=== PATIENT | female | born 1930 | race Caucasian/White ===

== ENCOUNTER 2017-05-19 11:13 | Observation (INO) ==
--- NOTE | 2017-05-19 11:18 | Emergency Department Note ---
Disposition Clinical Impression: Chest pain Disposition: Admitted As Inpatient Condition: Good General Adult HPI - General Chief complaint: ED Chest Pain Stated complaint: CHEST PAIN/BACK PAIN Time Seen by Provider: 05/19/17 11:17 - Related Data Home Medications Medication Instructions Recorded Confirmed Levothyroxine [Synthroid] 100 mcg PO DAILY 12/18/15 05/19/17 LORazepam [Ativan] 0.5 mg PO TID PRN 08/07/16 05/19/17 Aspirin [Lo-Dose Aspirin EC] 1 tab PO DAILY 08/11/16 05/19/17 amLODIPine [Norvasc] 2.5 mg PO DAILY 04/22/17 05/19/17 Acetaminophen [Tylenol] 500 mg PO TID PRN 05/19/17 05/19/17 Cholecalciferol (D-3) [Vitamin D] 5,000 unit PO DAILY 05/19/17 05/19/17 Metoprolol XL (24 HR) Succ [Toprol 25 mg PO DAILY 05/19/17 05/19/17 XL] Oxycodone HCl [Oxaydo] 2.5 - 5 mg PO Q6H PRN 05/19/17 05/19/17 Allergies Allergy/AdvReac Type Severity Reaction Status Date / Time tuberculin,PPD,multi-puncture Allergy Hypertensio Verified 04/22/17 13:20 n meperidine [From Demerol] AdvReac Vomiting Verified 04/22/17 13:20 IVP DYE Allergy Hives Uncoded 05/19/17 11:22 Past Medical History - Past Medical History Medical history: Reports: atrial fibrillation, CHF, coronary artery disease, CVA , GI bleed, hypertension, myocardial infarction Psychiatric history: Reports: anxiety - Social History Smoking Status: Former smoker Smokeless Tobacco Status: No Alcohol use: Reports: none Drug use: Reports: none Course Vital Signs Temperature 98.1 F 05/19/17 11:16 Pulse Rate 65 05/19/17 11:16 Respiratory Rate 16 05/19/17 11:16 Blood Pressure 155/104 05/19/17 11:16 O2 Sat by Pulse Oximetry 97 05/19/17 11:16 Temperature 98.4 F 05/19/17 14:26 Pulse Rate 59 05/19/17 14:26 Respiratory Rate 18 05/19/17 14:26 Blood Pressure 182/74 05/19/17 14:26 O2 Sat by Pulse Oximetry 94 05/19/17 14:26 Oxygen Delivery Oxygen Delivery Room Air Medical Decision Making - Lab Data Result diagrams: 05/19/17 11:28 05/19/17 11:28 Lab Results 05/19/17 05/19/17 05/19/17 Range/Units 11:28 11:28 11:28 WBC 5.1 (4.3-11.1) K/mcL RBC 4.41 (3.82-4.97) M/mcL Hgb 10.7 L (11.5-15.4) g/dL Hct 36.3 (35.3-44.9) % MCV 82.3 L (83.0-100.0) fL MCH 24.3 L (28.0-33.3) pg MCHC 29.5 L (31.6-35.5) g/dL RDW 18.1 H (11.5-14.5) % Plt Count 128 L (140-400) K/mcL MPV 10.0 (9.4-12.4) fL Immature Gran % 0.2 (0-4) % Seg Neutrophils % 69.8 % Lymphocytes % 19.8 % Monocytes % 8.4 % Eosinophils % 1.4 % Basophils % 0.4 % Neutrophils # 3.6 (1.6-8.9) K/mcL Lymphocytes # 1.0 (0.6-4.6) K/mcL Monocytes # 0.4 (0.0-1.3) K/mcL Eosinophils # 0.1 (0.0-0.6) K/mcL Basophils # 0.0 (0.0-0.2) K/mcL Platelet Estimate Normal (Normal) Hypochromasia Present A (Not Present) Anisocytosis 1+ A (Not Present) D-Dimer (0-500) ng/mLFEU Sodium 138 (136-145) mEq/L Potassium 4.9 H (3.5-4.5) mEq/L Chloride 104 (98-109) mEq/L Carbon Dioxide 29 (19-29) mEq/L BUN 23 H (7-20) mg/dL Creatinine 1.31 H (0.57-1.11) mg/dL Est GFR ( Amer) 47 L (> 60) Est GFR (Non-Af Amer) 39 L (> 60) BUN/Creatinine Ratio 18 (6-26) Glucose 94 (70-99) mg/dL Calculated Osmolality 289 (280-300) Calcium 9.6 (8.6-10.8) mg/dL Troponin I 0.02 (0-0.03) ng/mL 05/19/17 Range/Units 11:30 WBC (4.3-11.1) K/mcL RBC (3.82-4.97) M/mcL Hgb (11.5-15.4) g/dL Hct (35.3-44.9) % MCV (83.0-100.0) fL MCH (28.0-33.3) pg MCHC (31.6-35.5) g/dL RDW (11.5-14.5) % Plt Count (140-400) K/mcL MPV (9.4-12.4) fL Immature Gran % (0-4) % Seg Neutrophils % % Lymphocytes % % Monocytes % % Eosinophils % % Basophils % % Neutrophils # (1.6-8.9) K/mcL Lymphocytes # (0.6-4.6) K/mcL Monocytes # (0.0-1.3) K/mcL Eosinophils # (0.0-0.6) K/mcL Basophils # (0.0-0.2) K/mcL Platelet Estimate (Normal) Hypochromasia (Not Present) Anisocytosis (Not Present) D-Dimer 1919 H (0-500) ng/mLFEU Sodium (136-145) mEq/L Potassium (3.5-4.5) mEq/L Chloride (98-109) mEq/L Carbon Dioxide (19-29) mEq/L BUN (7-20) mg/dL Creatinine (0.57-1.11) mg/dL Est GFR ( Amer) (> 60) Est GFR (Non-Af Amer) (> 60) BUN/Creatinine Ratio (6-26) Glucose (70-99) mg/dL Calculated Osmolality (280-300) Calcium (8.6-10.8) mg/dL Troponin I (0-0.03) ng/mL Attestation Statement - Attestation Attestation: I examined this patient and my medical decision-making was reviewed with the Resident Physician. I agree with the documented findings, disposition and treatment plan as described except to the extent set forth below. [id number] time providing Patient sent from the cancer center. She has a known history of colon cancer with hepatic metastases. She was sent for bradycardia evaluation chest pain. She appears in no acute distress on exam
--- NOTE | 2017-05-19 11:21 | Emergency Department Note ---
Disposition Clinical Impression: Chest pain Qualifiers: Chest pain type: unspecified Qualified Code(s): R07.9 - Chest pain, unspecified Disposition: Admitted As Inpatient Condition: Undetermined Referrals: Phyllis Parsons CNP [Primary Care Provider] - Forms: ED Satisfaction Letter Time of Disposition: 12:55 Chest Pain HPI - General Chief Complaint: ED Chest Pain Stated Complaint: CHEST PAIN/BACK PAIN Time Seen by Provider: 05/19/17 11:17 Source: patient Mode of arrival: EMS Limitations: no limitations Vital Signs Reviewed: Yes Nursing Notes Reviewed: Yes - History of Present Illness HPI Narrative: A 6-year-old female with history of colon cancer with liver metastasis currently about to start treatments of chemotherapy at [facility], right [facility] emergency Department as a transfer from the cancer center. [facility] with complaint of retrosternal chest pain with radiation down or back. She has associated dyspnea. The patient states this feels different from her previous chest pain. The patient denies any other complaints at this time. She is resting comfortably with a [id number] amount of chest pain in the room. The patient has had a CABG with unknown number of vessel repair. Patient denies any other complaints at this time. The patient's heart rate on the monitor initially demonstrates a heart rate of 33 on further evaluation there is a bigeminal pattern noted on the patient's EKG. The patient is mentating appropriately and answering all questions appropriately. The patient does have a history of atrial fibrillation but denies taking any anticoagulant at this time. The patient does state that she feels slightly weak in her shoulders which is new in addition the patient is complaining of a mild amount of neck discomfort. She says this is more soreness. The patient is able to move her neck without difficulty. She does not appear meningismus. Pt complaint: chest pain Onset (ago): Just [employer] INTEGR[employer] Duration: constant Onset: during rest Pain Location: substernal Severity: mild, moderate Quality: tightness Pain Radiation: back Improves with: nothing Worsens with: nothing Associated symptoms: Reports: dyspnea Treatments prior to arrival chest pain: none - Related Data On Oral Contraceptives: No Home Medications Medication Instructions Recorded Confirmed Levothyroxine [Synthroid] 100 mcg PO DAILY 12/18/15 05/19/17 LORazepam [Ativan] 0.5 mg PO TID PRN 08/07/16 05/19/17 Aspirin [Lo-Dose Aspirin EC] 1 tab PO DAILY 08/11/16 05/19/17 amLODIPine [Norvasc] 2.5 mg PO DAILY 04/22/17 05/19/17 Acetaminophen [Tylenol] 500 mg PO TID PRN 05/19/17 05/19/17 Cholecalciferol (D-3) [Vitamin D] 5,000 unit PO DAILY 05/19/17 05/19/17 Metoprolol XL (24 HR) Succ [Toprol 25 mg PO DAILY 05/19/17 05/19/17 XL] Oxycodone HCl [Oxaydo] 2.5 - 5 mg PO Q6H PRN 05/19/17 05/19/17 Allergies Allergy/AdvReac Type Severity Reaction Status Date / Time tuberculin,PPD,multi-puncture Allergy Hypertensio Verified 04/22/17 13:20 n meperidine [From Demerol] AdvReac Vomiting Verified 04/22/17 13:20 IVP DYE Allergy Hives Uncoded 05/19/17 11:22 All systems ED: reviewed and negative except as stated. Constitutional: Denies: fever, chills, weakness, weight change Eyes: Denies: eye pain, eye discharge, vision change Cardiovascular: Reports: chest pain. Denies: palpitations, dyspnea on exertion , edema, syncope Respiratory: Reports: dyspnea. Denies: cough, wheezes, hemoptysis, stridor Gastrointestinal: Denies: abdominal pain, nausea, vomiting, diarrhea, constipation, hematemesis, melena, hematochezia Genitourinary: Denies: dysuria, frequency, hematuria, discharge Musculoskeletal: Denies: back pain, neck pain, arthralgia, myalgia Integumentary: Denies: rash, abrasion, lesions Neurological: Denies: headache, weakness, numbness, paresthesias, confusion, abnormal gait, vertigo Chest Pain PMH - Past Medical History Medical history: Reports: atrial fibrillation, CHF, coronary artery disease, CVA , GI bleed, hypertension, myocardial infarction Psychiatric history: Reports: anxiety - Social History Smoking Status: Former smoker Alcohol use: Reports: none Drug use: Reports: none Physical Exam - General Limitations: no limitations General appearance: alert, in no apparent distress - Head Head exam: atraumatic, normocephalic, normal inspection - Eye Eye exam: Present: normal appearance, PERRL, EOMI - ENT ENT exam: normal exam, normal oropharynx, mucous membranes moist - Neck Neck exam: Present: normal inspection, full ROM, trachea midline - Chest Chest inspection: Present: normal inspection, symmetric chest wall rise - Respiratory Respiratory exam: Present: normal lung sounds bilaterally - Cardiovascular Cardiovascular exam: Present: regular rate, normal rhythm, normal heart sounds - Abdominal Exam Abdominal exam: Present: soft, Non-Tender. Absent: tenderness, distention, guarding, rebound, rigidity - Extremities Exam Extremities exam: Present: normal inspection, full ROM. Absent: tenderness, pedal edema - Back Exam Back exam: Present: normal inspection, full ROM. Absent: tenderness - Neurological Exam Neurological exam: Present: alert, oriented X3 - Skin Skin exam: Present: warm, dry, intact, normal color Course Vital Signs Temperature 98.1 F 05/19/17 11:16 Pulse Rate 65 05/19/17 11:16 Respiratory Rate 16 05/19/17 11:16 Blood Pressure 155/104 05/19/17 11:16 O2 Sat by Pulse Oximetry 97 05/19/17 11:16 Temperature 98.1 F 05/19/17 11:16 Pulse Rate 65 05/19/17 11:16 Respiratory Rate 16 05/19/17 11:16 Blood Pressure 155/104 05/19/17 11:16 O2 Sat by Pulse Oximetry 97 05/19/17 11:16 Oxygen Delivery Oxygen Delivery Room Air Chest Pain - MDM Narrative Medical decision making narrative: Patient's chest pain is slightly relieved with nitroglycerin. The patient's d- dimer was elevated but I do not feel as though this is a PE. We did receive a negative Doppler of the left lower extremity. The patient will be admitted to the hospital for further workup accepted by Dr. Salas in the hospitalist group. He was advised the patient does have an elevated d-dimer but given the patient's history of IVP dye allergy and CK D, a CTA is not obtainable here in the ED and we feel as though the VQ scan would be able to be obtained if deemed necessary by the hospitalist group once admitted as it will not change the patient's disposition at this time. Dr. Busby excepts the patient. - Medical Records Medical records reviewed: Yes I reviewed the patient's medical records. - Lab Data Lab results reviewed: Yes I reviewed the patient's lab results. Result diagrams: 05/19/17 11:28 05/19/17 11:28 Lab Results 05/19/17 05/19/17 05/19/17 Range/Units 11:28 11:28 11:28 WBC 5.1 (4.3-11.1) K/mcL RBC 4.41 (3.82-4.97) M/mcL Hgb 10.7 L (11.5-15.4) g/dL Hct 36.3 (35.3-44.9) % MCV 82.3 L (83.0-100.0) fL MCH 24.3 L (28.0-33.3) pg MCHC 29.5 L (31.6-35.5) g/dL RDW 18.1 H (11.5-14.5) % Plt Count 128 L (140-400) K/mcL MPV 10.0 (9.4-12.4) fL Immature Gran % 0.2 (0-4) % Seg Neutrophils % 69.8 % Lymphocytes % 19.8 % Monocytes % 8.4 % Eosinophils % 1.4 % Basophils % 0.4 % Neutrophils # 3.6 (1.6-8.9) K/mcL Lymphocytes # 1.0 (0.6-4.6) K/mcL Monocytes # 0.4 (0.0-1.3) K/mcL Eosinophils # 0.1 (0.0-0.6) K/mcL Basophils # 0.0 (0.0-0.2) K/mcL Platelet Estimate Normal (Normal) Hypochromasia Present A (Not Present) Anisocytosis 1+ A (Not Present) D-Dimer (0-500) ng/mLFEU Sodium 138 (136-145) mEq/L Potassium 4.9 H (3.5-4.5) mEq/L Chloride 104 (98-109) mEq/L Carbon Dioxide 29 (19-29) mEq/L BUN 23 H (7-20) mg/dL Creatinine 1.31 H (0.57-1.11) mg/dL Est GFR ( Amer) 47 L (> 60) Est GFR (Non-Af Amer) 39 L (> 60) BUN/Creatinine Ratio 18 (6-26) Glucose 94 (70-99) mg/dL Calculated Osmolality 289 (280-300) Calcium 9.6 (8.6-10.8) mg/dL Troponin I 0.02 (0-0.03) ng/mL 05/19/ Range/Units 11:30 WBC (4.3-11.1) K/mcL RBC (3.82-4.97) M/mcL Hgb (11.5-15.4) g/dL Hct (35.3-44.9) % MCV (83.0-100.0) fL MCH (28.0-33.3) pg MCHC (31.6-35.5) g/dL RDW (11.5-14.5) % Plt Count (140-400) K/mcL MPV (9.4-12.4) fL Immature Gran % (0-4) % Seg Neutrophils % % Lymphocytes % % Monocytes % % Eosinophils % % Basophils % % Neutrophils # (1.6-8.9) K/mcL Lymphocytes # (0.6-4.6) K/mcL Monocytes # (0.0-1.3) K/mcL Eosinophils # (0.0-0.6) K/mcL Basophils # (0.0-0.2) K/mcL Platelet Estimate (Normal) Hypochromasia (Not Present) Anisocytosis (Not Present) D-Dimer 1919 H (0-500) ng/mLFEU Sodium (136-145) mEq/L Potassium (3.5-4.5) mEq/L Chloride (98-109) mEq/L Carbon Dioxide (19-29) mEq/L BUN (7-20) mg/dL Creatinine (0.57-1.11) mg/dL Est GFR ( Amer) (> 60) Est GFR (Non-Af Amer) (> 60) BUN/Creatinine Ratio (6-26) Glucose (70-99) mg/dL Calculated Osmolality (280-300) Calcium (8.6-10.8) mg/dL Troponin I (0-0.03) ng/mL - Radiology Data Radiology results reviewed: Yes I reviewed the patient's radiology results. - EKG Data EKG attestation: Yes I reviewed and interpreted this EKG. EKG results narrative: Heart rate 70 bpm. LA interval 194 ms. QTc 440 ms. Normal axis. No ST elevation or ST depression noted. Bigeminal-like pattern associated with multiple foci. EKG from 05/21/2016 without bigeminal pattern. EKG #2: Heart rate 57 bpm. LA interval 198 ms. QTc 450 ms. Normal axis. No ST elevation or ST depression noted. New bigeminal pattern continued and is similar to EKG performed at 1118. No acute changes noted from previous EKG this morning.
[2017-05-19 11:39] LABS: Basophils % 0.4 %; Immature Granulocytes % 0.2 % (0-4)
[2017-05-19 11:40] LABS: Eosinophils # 0.1 K/mcL (0.0-0.6); Eosinophils % 1.4 %; Hematocrit 36.3 % (35.3-44.9); Hemoglobin 10.7 g/dL (11.5-15.4); Lymphocytes % 19.8 %; Mean Corpuscular HGB Conc 29.5 g/dL (31.6-35.5); Mean Corpuscular Hemoglobin 24.3 pg (28.0-33.3); Mean Corpuscular Volume 82.3 fL (83.0-100.0); Monocytes # 0.4 K/mcL (0.0-1.3); Monocytes % 8.4 %; Neutrophils # 3.6 K/mcL (1.6-8.9); Platelet Count 128 K/mcL (140-400); Red Blood Count 4.41 M/mcL (3.82-4.97); Red Cell Distribution Width 18.1 % (11.5-14.5); Segmented Neutrophils % 69.8 %
[2017-05-19 11:51] LABS: Calcium 9.6 mg/dL (8.6-10.8); Potassium 4.9 mEq/L (3.5-4.5)
[2017-05-19 12:01] LABS: Anisocytosis 1+ (Not Present); Hypochromasia Present (Not Present)
[2017-05-19 12:02] LABS: Platelet Estimate Normal (Normal)
[2017-05-19] MEDS: Nitroglycerin 0.4 MG TAB.SUBL SL PRN ×2 (12:06→12:08)
[2017-05-19] MEDS: 0.9 % Sodium Chloride 1,000 ML IVC SCH ×2 (12:07→20:36)
--- NOTE | 2017-05-19 12:59 | Venous Imaging Report ---
LE Venous Duplex Patient Name:Kamila Da Silva Order Number:[id number] Procedure Date:05/19/2017 Date:1930Age:86 yrs Gender:Female Location:[facility] [place] ED Room #: 1 Retail Sales Merchandiser Development:Jenn Franco RVT, RDCS Referring MD:Jose Jacob DO shot packer:Phyllis Parsons, STENCILER Reading MD:Manjit Ross MD , FACS Primary Indications:Left leg swelling Secondary Indications: Risk Factors Yes/No Hx of Chemotherapy Yes Anticoagulants Yes Impressions: Left lower extremity: normal superficial and deep exam. Right lower extremity: normal contralateral exam. Recommendations: After imaging the patient returned to er. Test completed on 05/19/2017 at 12:45:00 pm. Critical findings reported to Dr Jacob by phone at 12:50:00 pm on 05/19/2017 by Jenn Franco RVT, RDCS. Findings Venous Duplex Results: Right: Venous imaging of the lower extremity reveals full patency and normal vessel compressibility of the right common femoral. Doppler signals in the evaluated veins were normal. Left: Venous imaging of the lower extremity reveals full patency and normal vessel compressibility of the left distal iliac, left common femoral, left superficial femoral, left popliteal, left posterior tibial, left peroneal, left great saphenous and left lesser saphenous. Doppler signals in the evaluated veins were normal. Prior Study: No prior study available for comparison. Lower Extremity Venous Duplex Side Vein Compress Spontaneous Flow Augment Diameter (cm) Depth (cm) Left Distal Iliac Normal Yes Phasic Yes Left Common Femoral Normal Yes Phasic Yes Left Superficial Femoral Normal Yes Phasic Yes Left Popliteal Normal Yes Phasic Yes Left Posterior Tibial Normal Yes Phasic Yes Left Peroneal Normal Yes Phasic Yes Left Great Saphenous Normal Yes Phasic Yes Left Lesser Saphenous Normal Yes Phasic Yes Right Common Femoral Normal Yes Phasic Yes Updated by Manjit Ross MD, FACS on 05/19/2017 12:54:39 PM Manjit Ross MD electronically signed on 05/19/2017 12:55:01 PM with status of Final
[2017-05-19] MEDS ORDERED: Naloxone 0.4 MG/ML INJ IVP PRN (13:52)
--- NOTE | 2017-05-19 13:56 | Internal Med History&Physical ---
Date of Encounter: 05/19/17 Time of Encounter: 17:32 Assessment and Plan (1) Chest pain Current visit: Yes Status: Acute Chest pain: ERAN: 4 PESI : 126 Creat 1.36 with GFR 39 US lower extremity is negative for DVT. History of colon cancer with ongoing treatment. patient should be on IV heparin but in view of ongoing treatment for Carcinoma colon with mets to liver, the risk of bleeding is extremely high. plan V/Q tomorrow Symptomatic treatment for now. case discussed with patient's oncologist and plan discussed. Dr Dawson agreed with plan. I have discussed plan of care at length with patient and her daughter. They understood and agreed. 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 (4) Liver metastasis Current visit: No Status: Acute Ongoing treatment for same. (5) Hypothyroidism Current visit: No Status: Acute on replacement Levothyroxine. Qualifiers: Hypothyroidism type: acquired Qualified Code(s): E03.9 - Hypothyroidism, unspecified (6) CKD (chronic kidney disease), stage III Current visit: No Status: Chronic likely component of dehydration. (7) DVT prophylaxis Current visit: No Status: Acute SCD No pharmacological prophylaxis in view of bleeding risk Medical decision making : Patient is a moderate to severe risk of worsening clinically in spite of being on appropriate treatment due to underlying neoplastic condition. Internal Medicine - H&P: HPI Chief complaint: Chest pain Admitted From: Emergency Dept Plans for Post Hospital Care: Home History of present illness: PCP: LISSY Beasley from [facility] Oncology : Dr Dawson Cardiology : Dr Chavez. [facility] PMH : Ca Colon, HTN, Afib, CAD, CVA, HPI: The patient was in the oncologist office for a routine checkup. Where it was noted that patient had a persistent nonradiating, localized, substernal/ epigastric, excruciating chest pain. The pain was ongoing for more than 20 minutes and he did not respond to any nitroglycerin. Patient was complaining of back pain along with chest pain and that was a common symptom for oncologist. Patient denies shortness of breath, nausea, vomiting, abdominal pain or dizziness. Workup in ER: Patient was evaluated in the emergency room. Baseline labs were drawn. Noted that patient has a elevated creatinine. Patient is not a candidate for CTA and even though her d-dimer is elevated due to underlying kidney disease. Ultrasound of the lower extremity were negative. Reason for admission: Possible pulmonary embolism/chest pain to rule out ACS. Family history: Noncontributory Past Med Surg Social Fam HX - Past Medical History Medical history: atrial fibrillation, CHF, coronary artery disease, CVA, GI bleed, hypertension, myocardial infarction Psychiatric history: anxiety - Social History Smoking Status: Former smoker Smokeless Tobacco Status: No Alcohol use: none Drug use: none - Family History Mother Living Status: Hx Family Cardiac Disorders: No Hx Family Respiratory Disorders: No Hx Family Cancer: Yes (colon) Hx Family GI Disorders: No Hx Family Endocrine Disorder: No Hx Family Neuromuscular Disorders: No Hx Family Neurologic Disorders: No Hx Family HEENT Disorders: No Hx Family Autoimmune Disorders: No Internal Medicine - H&P: Meds Levothyroxine [Synthroid] 100 mcg PO DAILY 12/18/15 [History] LORazepam [Ativan] 0.5 mg PO TID PRN 08/07/16 [History] Aspirin [Lo-Dose Aspirin EC] 1 tab PO DAILY 08/11/16 [History] amLODIPine [Norvasc] 2.5 mg PO DAILY 04/22/17 [History] Acetaminophen [Tylenol] 500 mg PO TID PRN 05/19/17 [History] Cholecalciferol (D-3) [Vitamin D] 5,000 unit PO DAILY 05/19/17 [History] Metoprolol XL (24 HR) Succ [Toprol XL] 25 mg PO DAILY 05/19/17 [History] Oxycodone HCl [Oxaydo] 2.5 - 5 mg PO Q6H PRN 05/19/17 [History] Allergies tuberculin,PPD,multi-puncture Allergy (Verified 04/22/17 13:20) Hypertension meperidine [From Demerol] Adverse Reaction (Verified 04/22/17 13:20) Vomiting IVP DYE Allergy (Uncoded 05/19/17 11:22) Hives All Systems PM: A 10-system review of systems was performed and is negative for pertinent findings except as documented above in the HPI. - Constitutional Constitutional: no chills, no fever(s), no night sweats - EENT Eyes: no change in vision, no discharge, no pain, no photophobia Ears: no ear discharge, no ear pain, no tinnitus Nose, mouth and throat: no dysphagia, no nasal discharge, no neck pain, no sore throat - Cardiovascular Cardiovascular ROS IM: no chest pain, no diaphoresis, no dyspnea, no lightheadedness, no palpitations, no syncope - Respiratory Respiratory: no cough, no dyspnea, no wheezing, no excessive phlegm production - Gastrointestinal Gastrointestinal: no abdominal pain, no diarrhea, no hematemesis, no hematochezia, no melena, no nausea, no vomiting - Genitourinary Genitourinary: no change in urinary stream, no dysuria, no flank pain, no hematuria - Musculoskeletal Musculoskeletal ROS IM: no numbness, no tingling - Integumentary Integumentary IM: no rash, no unusual bruising - Neurological Neurological ROS: no confusion, no convulsions, no focal weakness, no numbness, no tingling, no tremor(s) - Hematologic/Lymphatic Hematologic/Lymphatic: no easy bruising - Constitutional Vitals: Temp Pulse Resp BP Pulse Ox 98.1 F 65 22 188/89 97 05/19/17 11:16 05/19/17 11:16 05/19/17 13:28 05/19/17 13:28 05/19/17 11:16 General appearance: Present: A&O X 3, pleasant, no acute distress, answers questions appropriately - Head Head exam: Present: atraumatic, normocephalic - Eye Eye exam: Present: PERRL, conjuntiva pink, sclera anicteric Pupils: Present: PERRL - Neck Neck exam general surgery: Present: supple, trachea midline. Absent: lymphadenopathy - Respiratory Respiratory exam: Present: CTAB. Absent: accessory muscle use, rales, rhonchi, wheezes - Cardiovascular Cardiovascular exam: Present: RRR, +S1, +S2. Absent: diastolic murmur, gallop, rubs, systolic murmur - GI/Abdominal GI/Abdominal exam: Present: normal bowel sounds, soft, no peritoneal signs. Absent: distended, tenderness - Extremities Exam Extremities exam: Present: warm, radial pulses palpable and symetrical. Absent : calf tenderness, cyanotic, pedal edema - Neurological Exam Neurological exam: Present: CN II-XII intact, oriented X3, no focal deficits. Absent: pronater drift, facial droop, speech deficit - Skin Skin exam: Present: dry, intact Internal Med - H&P Results - Labs CBC & Chem 7: 05/19/17 11:28 05/19/17 11:28 Labs: Results discussed with the ER physician and person. I have examined this patient in the emergency room as well as on the floor.
[2017-05-19] MEDS ORDERED: OXYCODONE HCL PO SCH (14:00)
[2017-05-19] MEDS ORDERED: *HR* OxyCODONE Immed Rel 5 MG TABLET PO PRN ×2 (14:00)
[2017-05-19] MEDS: *HR* LORazepam 0.5 MG TABLET PO PRN ×2 (18:20→23:43)
[2017-05-20 02:03] LABS: Immature Reticulocyte % 20.4 % (11.0-38.0); Retculocyte # 0.07 M/mcL (0.05-0.10); Reticulocyte % 1.7 % (1.6-2.8)
[2017-05-20 02:04] LABS: Basophils % 0.6 %; Eosinophils # 0.1 K/mcL (0.0-0.6); Eosinophils % 2.7 %; Hematocrit 30.7 % (35.3-44.9); Immature Granulocytes % 0.6 % (0-4); Lymphocytes # 0.9 K/mcL (0.6-4.6); Lymphocytes % 26.6 %; Mean Corpuscular HGB Conc 29.6 g/dL (31.6-35.5); Mean Corpuscular Hemoglobin 24.4 pg (28.0-33.3); Mean Corpuscular Volume 82.3 fL (83.0-100.0); Mean Platelet Volume 10.3 fL (9.4-12.4); Monocytes # 0.4 K/mcL (0.0-1.3); Monocytes % 11.1 %; Platelet Count 110 K/mcL (140-400); Red Blood Count 3.73 M/mcL (3.82-4.97); Red Cell Distribution Width 18.1 % (11.5-14.5); Segmented Neutrophils % 58.4 %
[2017-05-20 02:25] LABS: Albumin 2.8 g/dL (3.5-5.0); Albumin/Globulin Ratio 0.9 (1.1-2.2); Bilirubin,Total 0.3 mg/dL (0.2-1.2); Calcium 8.8 mg/dL (8.6-10.8); Globulin 3.2 g/dL (2.4-3.5); Magnesium 1.7 mg/dL (1.6-2.6); Phosphorous 3.5 mg/dL (2.3-4.7); Potassium 4.5 mEq/L (3.5-4.5)
[2017-05-20 02:32] LABS: Hemoglobin 9.1 g/dL (11.5-15.4)
[2017-05-20 02:48] LABS: Thyroid Stimulating Hormone 0.883 mcIU/mL (0.350-4.840)
[2017-05-20 03:00] LABS: Folate 11.4 ng/mL (7.0-31.4)
[2017-05-20] MEDS: 0.9 % Sodium Chloride 1,000 ML IVC SCH (04:13)
[2017-05-20] MEDS: *HR* LORazepam 0.5 MG TABLET PO PRN (08:50)
[2017-05-20] MEDS ORDERED: Metoprolol XL (24 HR) Succ 25 MG TAB.ER.24H PO SCH (09:00)
[2017-05-20] MEDS ORDERED: Aspirin Enteric Coated 81 MG Tablet PO SCH (09:00)
[2017-05-20] MEDS ORDERED: amLODIPine 5 MG TABLET PO SCH (09:00)
[2017-05-20] MEDS ORDERED: Cholecalciferol (D-3) 1,000 UNIT TABLET PO SCH (09:00)
--- NOTE | 2017-05-20 10:55 | Internal Med Progress Note ---
Date of Encounter: 05/20/17 Time of Encounter: 10:15 - Subjective Interval history: Laying in bed comfortably. Her only complaint is chronic right upper quadrant pain is most likely due to her liver metastases. She stated that she had a little nausea this morning that has resolved She denies dyspnea, chest pain, wheezing, fever, chills. - Constitutional Vitals: Temp Pulse Resp BP Pulse Ox 97.5 F L 78 16 170/89 92 05/20/17 07:05/20/17 07:05/20/17 07:05/20/17 07:05/20/17 07:27 General appearance: Present: A&O X 3, pleasant, no acute distress, answers questions appropriately Internal Medicine: Result - Labs CBC & Chem 7: 05/20/17 01:32 05/20/17 01:32 Labs: Short CBC 05/20/17 Range/Units 01:32 WBC 3.3 L (4.3-11.1) K/mcL Hgb 9.1 L D (11.5-15.4) g/dL Hct 30.7 L (35.3-44.9) % Plt Count 110 L (140-400) K/mcL Neutrophils # 2.0 (1.6-8.9) K/mcL BMP 05/20/17 01:32 Sodium 140 Potassium 4.5 Chloride 109 Carbon Dioxide 27 BUN 23 H Creatinine 1.27 H Glucose 96 Calcium 8.8 Cardiac Enzymes 05/19/17 05/19/17 05/20/17 Range/Units 14:32 20:30 01:32 Troponin I 0.00 0.01 0.01 (0-0.03) ng/mL Liver Function 05/20/17 Range/Units 01:32 Total Bilirubin 0.3 (0.2-1.2) mg/dL AST 14 (5-34) Units/L ALT 17 (0-55) Units/L Alkaline Phosphatase 121 (38-126) Units/L Albumin 2.8 L (3.5-5.0) g/dL - ABG Interpretation ABG results: PT/INR, D-dimer D-Dimer 1919 ng/mLFEU (0-500) H 05/19/17 11:30 - Impressions Impressions Pulmonary Perfusion Imaging 05/19/17 17:31 IMPRESSION: Low Probability for Pulmonary Embolus. D/ / Francisco Padilla MD / Francisco Padilla MD Interpreting Provider: Francisco Padilla MD - VTE Documentation of Mechanical Device: Intermittent pneumatic compression device Consult Discharge Plan - Plan Referrals: Phyllis Parsons CNP [Primary Care Provider] -
[2017-05-20 10:57] VITALS: BP 162/90
--- NOTE | 2017-05-20 13:49 | Electrocardiograph Report ---
[address] [place] [address] Test Date: 2017-05-19 Pat Name: Kamila Da Silva Department: 103 Room: 2A24 Gender: F Trade Specialist: : 1930 Requested By: Jose Jacob Order Number: [id number] Reading MD: Chandra Aguilera MD Measurements Intervals [place] Rate: 70 P: 80 SC: 194 QRS: 66 QRSD: 102 T: -76 QT: 427 QTc: 448 Interpretive Statements SINUS RHYTHM WITH FREQUENT VENTRICULAR PREMATURE COMPLEXES IN A BIGEMINAL PATTERN SEPTAL MYOCARDIAL INFARCTION, PROBABLY OLD INFEROLATERAL ISCHEMIA Electronically Signed On 05-20-2017 13:48:02 EDT by Chandra Aguilera MD
--- NOTE | 2017-05-20 13:53 | Electrocardiograph Report ---
[address] [place], [place] [address] Test Date: 2017-05-19 Pat Name: Kamila Da Silva Department: 103 Room: 2A24 Gender: F Sinter Feeder: : 1930 Requested By: Jacobo Pineda Order Number: [id number] Reading MD: Chandra Aguilera MD Measurements Intervals [place] Rate: 57 P: 81 MT: 198 QRS: 64 QRSD: 94 T: 265 QT: 455 QTc: 450 Interpretive Statements SINUS BRADYCARDIA WITH FREQUENT VENTRICULAR PREMATURE COMPLEXES IN A BIGEMINAL PATTERN INFEROLATERAL ISCHEMIA Electronically Signed On 05-20-2017 13:51:44 EDT by Chandra Aguilera MD
--- NOTE | 2017-05-20 13:54 | Discharge Summary ---
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 This was discussed with her daughter and she agreed. -Creat 1.27 with GFR 40 -US lower extremity: negative for DVT -patient has a history of colon cancer with ongoing treatment -her oncologist Dr. Dawson has been formed and is agreeable to the plan -patient will follow-up with her Carpet Technician Dr. 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, has completed radiation treatment Oncologist is Dr Dawson (4) Liver metastasis Priority: Secondary Status: Acute Comments: 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 Has an appointment with [facility] for treatment (5) Hypothyroidism Priority: Secondary Status: Acute Comments: Chronic hypothyroidism continue home medications of levothyroxine Qualifiers: Hypothyroidism type: acquired Qualified Code(s): E03.9 - Hypothyroidism, unspecified (6) CKD (chronic kidney disease), stage III Priority: Secondary Status: Chronic Comments: Cr 1.27 improving Likely in part to dehydration (7) DVT prophylaxis Priority: Secondary Status: Acute Comments: SCD no pharmacological prophylaxis due to high risk of bleeding - Discharge Medications Prescriptions: Levothyroxine [Synthroid] 100 mcg PO DAILY #30 Home Medications: LORazepam [Ativan] 0.5 mg PO TID PRN 08/07/16 [History] Aspirin [Lo-Dose Aspirin EC] 1 tab PO DAILY 08/11/16 [History] amLODIPine [Norvasc] 2.5 mg PO DAILY 04/22/17 [History] Acetaminophen [Tylenol] 500 mg PO TID PRN 05/19/17 [History] Cholecalciferol (D-3) [Vitamin D] 5,000 unit PO DAILY 05/19/17 [History] Metoprolol XL (24 HR) Succ [Toprol Xl] 25 mg PO DAILY 05/19/17 [History] Oxycodone HCl [Oxaydo] 2.5 - 5 mg PO Q6H PRN 05/19/17 [History] Levothyroxine [Synthroid] 100 mcg PO DAILY #30 05/20/17 [Rx] Allergies/Adverse Reactions: Allergies tuberculin,PPD,multi-puncture Allergy (Verified 04/22/17 13:20) Hypertension meperidine [From Demerol] Adverse Reaction (Verified 04/22/17 13:20) Vomiting IVP DYE Allergy (Uncoded 05/19/17 11:22) Hives Procedures/tests Complete & Pending: Procedures Performed prior 72 hours Category Date Time Status VQ Scan [NM pul vent and perfuse] [NM] Routine Exams 05/19/17 17:31 Completed ECG 12 lead ECG [ECG] Routine Y 05/19/17 11:49 Completed Date of admission: 05/19/17 13:00 Primary care physician: Phyllis Parsons CNP Consults: 05/19/17 15:29 Consult to Pastoral Services [CONS] Routine Comment: Discharging clinician: Aissatou Mitchell - Patient Status Disposition: Home, Self-Care Condition: Good Functional capacity at discharge: independent ambulation Overall status at discharge: patient is back to baseline - Discharge Instructions Instructions: Chest Pain (DC) Follow Up With: Phyllis Parsons CNP [Primary Care Provider] - 05/27/17 1:00 pm (Please follow up as schedule...) Additional Instructions: Follow-up with PCP: LISSY Beasley from [facility] follow-up with Oncology : Dr Dawson follow-up with Cardiology : Dr Chavez return to the ER if you experience any more chest pain or worsen. - Diet and Activity Diet: advance to your usual diet Interval History: Ms. Santos is a pleasant 86yo F who was in the oncologist office for a routine checkup for her colon carcinoma with liver metastases. The patient had a persistent nonradiating, localized, substernal/epigastric, excruciating chest pain. The pain was ongoing for more than 20 minutes and he did not respond to any nitroglycerin. Patient complained of back pain along with chest pain and that was a common symptom for oncologist. Patient denies shortness of breath, nausea, vomiting, abdominal pain or dizziness. While in the ER she was evaluated and labs were drawn. Patient was noted to have an elevated creatinine. She was not a candidate for CTA even though her teatime or was elevated due to her underlying chronic kidney disease. Ultrasound of the lower. extremity were negative. She was then admitted for possible pulmonary embolism and chest pain to roll out ACS. A V/Q scan was done and demonstrated a low probability of pulmonary embolism. Chest x-ray demonstrated no cardiopulmonary process. She was not started on heparin due to her history of colon carcinoma with liver metastases, the risk of bleeding is very high. This was discussed with her daughter and she agreed to not give heparin. The patient is currently stable, creatinine is improving. The patient expresses the want to go home. She denies chest pain, dyspnea, wheezing, fever, chills, nausea, vomiting, abdominal pain. Patient is alert and oriented x3 with full capacity. She was instructed to follow up with her oncologist: Dr. Dawson, Cardiology: Dr Chavez , PCP: LISSY Beasley from [facility]. She stated clearly understanding of the treatment plan. Patient requested a prescription of her Synthroid due to not having many more refills. She was giving the prescription at discharge. She was instructed to return to the hospital should she worsen. Hospital course: Ms. Da Silva is a 86 year old female - Time Spent with Patient Total time spent providing and/or coordinating discharge services: - Constitutional Vitals: Temp Pulse Resp BP Pulse Ox 97.5 F L 57 17 162/90 95 05/20/17 10:54 05/20/17 10:54 05/20/17 10:54 05/20/17 10:54 05/20/17 10:54 General appearance: Present: A&O X 3, pleasant, no acute distress, answers questions appropriately Exam: Gen.: Vitals noted. No acute distress. AAOx3 HEENT: PERRL, oropharynx clear, Normocephalic, atraumatic Neck: Supple. No adenopathy. Cardiac: RRR, no murmur, +S1/S2 Pulmonary: CTA bilaterally, no wheezes, rales or rhonchi, equal chest expansion Abdomen: soft, nontender, Bowel sounds noted, no guarding MSK: no joint swelling noted Extremities: nontender calf, no cyanosis or clubbing Neuro: A&Ox3, moves all extremities, no focal deficits Psych: Appropriate mood and behavior - VTE Documentation of Mechanical Device: Intermittent pneumatic compression device <Jose F Olson P - Last Filed: 05/20/17 18:38> Date of Encounter: 05/20/17 - Discharge Diagnosis (1) Chest pain Status: Acute Qualifiers: Chest pain type: unspecified Qualified Code(s): R07.9 - Chest pain, unspecified (2) Hypertension Status: Acute Qualifiers: Hypertension type: essential hypertension Qualified Code(s): I10 - Essential (primary) hypertension (3) Carcinoid tumor of colon Status: Acute (4) Liver metastasis Status: Acute (5) Hypothyroidism Status: Acute Qualifiers: Hypothyroidism type: acquired Qualified Code(s): E03.9 - Hypothyroidism, unspecified (6) CKD (chronic kidney disease), stage III Status: Chronic (7) DVT prophylaxis Status: Acute Procedures/tests Complete & Pending: Procedures Performed prior 72 hours Category Date Time Status VQ Scan [NM pul vent and perfuse] [NM] Routine Exams 05/19/17 17:31 Completed ECG 12 lead ECG [ECG] Routine Y 05/19/17 11:49 Completed Date of admission: 05/19/17 13:00 Primary care physician: Phyllis Parsons CNP Consults: 05/19/17 15:29 Consult to Pastoral Services [CONS] Routine Comment: Hospital course: Ms. Da Silva is a 86 year old female - Time Spent with Patient Total time spent providing and/or coordinating discharge services: - Constitutional Vitals: Temp Pulse Resp BP Pulse Ox 97.5 F L 57 17 162/90 95 05/20/17 10:54 05/20/17 10:54 05/20/17 10:54 05/20/17 10:54 05/20/17 10:54 - Attending Attestation I examined this patient and my medical decision-making was reviewed with the Resident Physician. I agree with the documented findings, disposition and treatment plan as described except to the extent set forth below.
--- NOTE | 2017-05-20 14:46 | Physician Discharge Referral ---
<StephenAissatou - Last Filed: 05/20/17 14:44> Home Health/Hosp Referral Info Transfer to: Home Health Attending Provider: Dr. Olson Provider in Charge Post Discharge: PCP - Diagnosis (1) Chest pain Status: Acute (2) Hypertension Status: Acute (3) Carcinoid tumor of colon Status: Acute (4) Liver metastasis Status: Acute (5) Hypothyroidism Status: Acute (6) CKD (chronic kidney disease), stage III Status: Chronic (7) DVT prophylaxis Status: Acute - Respiratory Orders None Smoking Cessation: Smoking cessation has been advised. For more information, call the [place] Tobacco Quit Line at 3-977-JTOC-NOW. - Diet/Nutrition Diet/Nutrition Orders: Regular - Activity Activity Orders: Ambulate - Services Needed Following services are medically necessary services: Nursing, Home Health Aide, Physical Therapy Home Care Orders: meals on wheels - Transfer Medications Prescriptions: Levothyroxine [Synthroid] 100 mcg PO DAILY #30 Home Medications: LORazepam [Ativan] 0.5 mg PO TID PRN 08/07/16 [History] Aspirin [Lo-Dose Aspirin EC] 1 tab PO DAILY 08/11/16 [History] amLODIPine [Norvasc] 2.5 mg PO DAILY 04/22/17 [History] Acetaminophen [Tylenol] 500 mg PO TID PRN 05/19/17 [History] Cholecalciferol (D-3) [Vitamin D] 5,000 unit PO DAILY 05/19/17 [History] Metoprolol XL (24 HR) Succ [Toprol Xl] 25 mg PO DAILY 05/19/17 [History] Oxycodone HCl [Oxaydo] 2.5 - 5 mg PO Q6H PRN 05/19/17 [History] Levothyroxine [Synthroid] 100 mcg PO DAILY #30 05/20/17 [Rx] Allergies/Adverse Reactions: Allergies tuberculin,PPD,multi-puncture Allergy (Verified 04/22/17 13:20) Hypertension meperidine [From Demerol] Adverse Reaction (Verified 04/22/17 13:20) Vomiting IVP DYE Allergy (Uncoded 05/19/17 11:22) Hives Certification: Further, I certify that my clinical findings support that this patient is homebound (i.e. absences from home require considerable and taxing effort and are for medical reasons or restorationism services or infrequently or short duration when for other reasons) because: she has carcinoma of the colon with metastases to the liver Homebound Reason: Leaving home requires considerable and taxing effort due to condition Attestation: My signature below is to certify that this patient is under my care and that I, or nurse practitioner, or a physician's assistant sales center manager working with me, has a face-to -face encounter with this patient. Dr. Aissatou Mitchell <Jose F Olson - Last Filed: 05/20/17 18:39> - Diagnosis (1) Chest pain Status: Acute (2) Hypertension Status: Acute (3) Carcinoid tumor of colon Status: Acute (4) Liver metastasis Status: Acute (5) Hypothyroidism Status: Acute (6) CKD (chronic kidney disease), stage III Status: Chronic (7) DVT prophylaxis Status: Acute - Respiratory Orders Smoking Cessation: Smoking cessation has been advised. For more information, call the [place] Tobacco Quit Line at 4-938-DJTA-NOW. Certification: Further, I certify that my clinical findings support that this patient is homebound (i.e. absences from home require considerable and taxing effort and are for medical reasons or restorationism services or infrequently or short duration when for other reasons) because: Attestation: My signature below is to certify that this patient is under my care and that I, or nurse practitioner, or a physician's assistant sales center manager working with me, has a face-to -face encounter with this patient.
[2017-05-21 15:05] LABS: Haptoglobin 131 mg/dL (30-200)
[2017-05-23 08:15] LABS: ANA IgG IFA Titer 1:40 (<1:40); ANA IgG by ELISA DETECTED (None Detected); MMA (VIT B12 STATUS) 0.35 umol/L (0.00-0.40)
== END 2017-05-20 15:20 | disposition home health service (06) ==
LOC: EMEROO 11:13 → 2ANU 11:13
PROVIDERS: ADMIT Internal Medicine; ATTEND Internal Medicine

== ENCOUNTER 2017-08-02 12:20 | Inpatient (IN) ==
--- NOTE | 2017-08-02 12:42 | Emergency Department Note ---
Disposition Clinical Impression: Anxiety, Atrial fibrillation with rapid ventricular response Atrial fibrillation Qualifiers: Atrial fibrillation type: persistent Qualified Code(s): I48.1 - Persistent atrial fibrillation Disposition: Admitted As Inpatient Condition: Fair Instructions: Atrial Fibrillation (ED) Forms: ED Satisfaction Letter Arrhythmia/Palpitations HPI - General Chief Complaint: ED Arrhythmia/Palpitations Stated Complaint: A-Fib Time Seen by Provider: 08/02/17 12:32 Source: patient Limitations: no limitations Nursing Notes Reviewed: Yes Vital Signs Reviewed: Yes - History of Present Illness HPI Narrative: 87-year-old female sent to the emergency Department from the cardiology clinic with a chief complaint of A. fib with RVR. Patient states that she has been out for approximately 4-5 weeks. She has been seen at another hospital but has refused hospitalization. She was seen by cardiology today who sent her to the emergency department. She denies chest pain. Other symptoms include mild swelling of the feet especially in the left side which is not new for her. She takes a water pill for this. She denies nausea vomiting or diarrhea. No other complaints at this time. Pt Subjective Complaint: rapid heart beat Onset (ago): month(s) Duration: constant Severity: moderate Context: occurred during rest Arrhythmia History: atrial fibrillation, on anti-coagulants Associated symptoms: Reports: denies other symptoms Treatments prior to arrival: other (It is unknown what exactly was attempted at the other hospital for rate control.) - Related Data Home Medications Medication Instructions Recorded Confirmed LORazepam [Ativan] 0.5 mg PO TID PRN 08/07/16 05/19/17 Aspirin [Lo-Dose Aspirin EC] 1 tab PO DAILY 08/11/16 05/19/17 amLODIPine [Norvasc] 2.5 mg PO DAILY 04/22/17 05/19/17 Acetaminophen [Tylenol] 500 mg PO TID PRN 05/19/17 05/19/17 Cholecalciferol (D-3) [Vitamin D] 5,000 unit PO DAILY 05/19/17 05/19/17 Metoprolol XL (24 HR) Succ [Toprol 25 mg PO DAILY 05/19/17 05/19/17 Xl] Previous Rx's Medication Instructions Recorded Levothyroxine [Synthroid] 100 mcg PO DAILY #30 05/20/17 Oxycodone HCl [Oxaydo] 2.5 - 5 mg PO Q6H PRN #60 08/25/17 Allergies Allergy/AdvReac Type Severity Reaction Status Date / Time tuberculin,PPD,multi-puncture Allergy Hypertensio Verified 04/22/17 13:20 n meperidine [From Demerol] AdvReac Vomiting Verified 04/22/17 13:20 IVP DYE Allergy Hives Uncoded 05/19/17 11:22 All systems ED: reviewed and negative except as stated. Constitutional: Reports: as per HPI Eyes: Reports: as per HPI ENT ED: Reports: as per HPI Cardiovascular: Reports: palpitations Respiratory: Reports: as per HPI Gastrointestinal: Reports: as per HPI Genitourinary: Reports: as per HPI Musculoskeletal: Reports: as per HPI Integumentary: Reports: as per HPI Neurological: Reports: as per HPI Past Medical History - Past Medical History Attestation: Yes The following information was validated with the patient. Medical history: Reports: atrial fibrillation, CHF, coronary artery disease, CVA , GI bleed, hypertension, myocardial infarction Psychiatric history: Reports: anxiety - Social History Smoking Status: Former smoker Smokeless Tobacco Status: No Alcohol use: Reports: none Drug use: Reports: none Physical Exam - General Limitations: no limitations General appearance: alert, in no apparent distress - Head Head exam: atraumatic - Eye Eye exam: Present: normal appearance - ENT ENT exam: normal exam - Neck Neck exam: Present: normal inspection, full ROM - Chest Chest inspection: Present: normal inspection, symmetric chest wall rise - Respiratory Respiratory exam: Present: normal lung sounds bilaterally - Cardiovascular Cardiovascular exam: Present: regular rate, normal rhythm - Abdominal Exam Abdominal exam: Present: soft, Non-Tender - Extremities Exam Extremities exam: Present: pedal edema - Neurological Exam Neurological exam: Present: alert, oriented X3 - Psychiatric Psychiatric exam: Present: normal affect, normal mood - Skin Skin exam: Present: warm, dry, intact Course Vital Signs Temperature 98.7 F 08/02/17 12:26 Pulse Rate 89 08/02/17 12:26 Respiratory Rate 18 08/02/17 12:26 Blood Pressure 131/91 08/02/17 12:26 O2 Sat by Pulse Oximetry 92 08/02/17 12:26 Temperature 98.7 F 08/02/17 12:26 Pulse Rate 77 08/02/17 13:04 Respiratory Rate 18 08/02/17 13:04 Blood Pressure 105/67 08/02/17 13:04 O2 Sat by Pulse Oximetry 100 08/02/17 13:04 Oxygen Delivery Oxygen Delivery Nasal Cannula Arrhythmia/Palpitations - [facility] Narrative Medical decision making narrative: Will attempt rate control with Cardizem. Will workup for A. fib with RVR. We will admit to the hospitalist service with cardiology consultation. Patient was given a dose of Cardizem which helped control her rate. Her blood pressure dropped mildly but responded well over time. She remained alert and oriented without significant difficulty in that regard. I spoke with the hospitalist service to arrange for admission for this patient as per cardiology recommendation and request. We did order cardiology consult though I did not call the side door worker while the emergency department because she was sent from cardiology clinic and I was told that that had been done by them. - Lab Data Lab results reviewed: Yes I reviewed the patient's lab results. Result diagrams: 08/02/17 12:56 08/02/17 12:56 Lab Results 08/02/17 08/02/17 08/02/17 Range/Units 12:56 12:56 12:56 WBC 6.1 (4.3-11.1) K/mcL RBC 4.22 (3.82-4.97) M/mcL Hgb 9.6 L (11.5-15.4) g/dL Hct 34.2 L (35.3-44.9) % MCV 81.0 L (83.0-100.0) fL MCH 22.7 L (28.0-33.3) pg MCHC 28.1 L (31.6-35.5) g/dL RDW 17.8 H (11.5-14.5) % Plt Count 178 (140-400) K/mcL MPV 10.5 (9.4-12.4) fL Immature Gran % 0.5 (0-4) % Seg Neutrophils % 74.2 % Lymphocytes % 14.7 % Monocytes % 8.8 % Eosinophils % 1.5 % Basophils % 0.3 % Neutrophils # 4.5 (1.6-8.9) K/mcL Lymphocytes # 0.9 (0.6-4.6) K/mcL Monocytes # 0.5 (0.0-1.3) K/mcL Eosinophils # 0.1 (0.0-0.6) K/mcL Basophils # 0.0 (0.0-0.2) K/mcL Platelet Estimate Normal (Normal) Polychromasia 1+ A (Not Present) Hypochromasia Present A (Not Present) Anisocytosis 1+ A (Not Present) PT 40.8 H (9.4-12.1) Seconds INR 3.7 APTT 39.5 H (26.0-36.0) Seconds Sodium 138 (136-145) mEq/L Potassium 3.9 (3.5-4.5) mEq/L Chloride 104 (98-109) mEq/L Carbon Dioxide 26 (19-29) mEq/L BUN 31 H (7-20) mg/dL Creatinine 1.48 H (0.57-1.11) mg/dL Est GFR ( Amer) 40 L (> 60) Est GFR (Non-Af Amer) 33 L (> 60) BUN/Creatinine Ratio 21 (6-26) Glucose 107 H (70-99) mg/dL Calculated Osmolality 293 (280-300) Calcium 9.5 (8.6-10.8) mg/dL Magnesium 1.7 (1.6-2.6) mg/dL Troponin I (0-0.03) ng/mL B-Natriuretic Peptide (0-100) pg/mL TSH 1.542 (0.350-4.840) mcIU/mL 08/02/17 08/02/17 Range/Units 12:56 12:56 WBC (4.3-11.1) K/mcL RBC (3.82-4.97) M/mcL Hgb (11.5-15.4) g/dL Hct (35.3-44.9) % MCV (83.0-100.0) fL MCH (28.0-33.3) pg MCHC (31.6-35.5) g/dL RDW (11.5-14.5) % Plt Count (140-400) K/mcL MPV (9.4-12.4) fL Immature Gran % (0-4) % Seg Neutrophils % % Lymphocytes % % Monocytes % % Eosinophils % % Basophils % % Neutrophils # (1.6-8.9) K/mcL Lymphocytes # (0.6-4.6) K/mcL Monocytes # (0.0-1.3) K/mcL Eosinophils # (0.0-0.6) K/mcL Basophils # (0.0-0.2) K/mcL Platelet Estimate (Normal) Polychromasia (Not Present) Hypochromasia (Not Present) Anisocytosis (Not Present) PT (9.4-12.1) Seconds INR APTT (26.0-36.0) Seconds Sodium (136-145) mEq/L Potassium (3.5-4.5) mEq/L Chloride (98-109) mEq/L Carbon Dioxide (19-29) mEq/L BUN (7-20) mg/dL Creatinine (0.57-1.11) mg/dL Est GFR ( Amer) (> 60) Est GFR (Non-Af Amer) (> 60) BUN/Creatinine Ratio (6-26) Glucose (70-99) mg/dL Calculated Osmolality (280-300) Calcium (8.6-10.8) mg/dL Magnesium (1.6-2.6) mg/dL Troponin I 0.03 (0-0.03) ng/mL B-Natriuretic Peptide 2051 H (0-100) pg/mL TSH (0.350-4.840) mcIU/mL - Radiology Data Radiology results reviewed: Yes I reviewed the patient's radiology results. - EKG Data EKG attestation: Yes I reviewed and interpreted this EKG. EKG shows normal: sinus rhythm Rate: tachycardia Rhythm: A.Fib When compared to previous EKG there are: no significant changes Interpretation: no acute changes Critical Care Time Critical Care Time: Yes Total Critical Care Time: 35 Attestation: Critical care time 35 minutes managing patient's A. fib with rapid ventricular response.
[2017-08-02] MEDS ORDERED: *HR* LORazepam 0.5 MG TABLET PO ONE (12:58)
[2017-08-02 13:03] LABS: Basophils % 0.3 %; Eosinophils % 1.5 %; Hemoglobin 9.6 g/dL (11.5-15.4); Red Cell Distribution Width 17.8 % (11.5-14.5)
[2017-08-02 13:05] LABS: Eosinophils # 0.1 K/mcL (0.0-0.6); Hematocrit 34.2 % (35.3-44.9); Immature Granulocytes % 0.5 % (0-4); Lymphocytes # 0.9 K/mcL (0.6-4.6); Lymphocytes % 14.7 %; Mean Corpuscular HGB Conc 28.1 g/dL (31.6-35.5); Mean Corpuscular Hemoglobin 22.7 pg (28.0-33.3); Mean Platelet Volume 10.5 fL (9.4-12.4); Monocytes # 0.5 K/mcL (0.0-1.3); Monocytes % 8.8 %; Neutrophils # 4.5 K/mcL (1.6-8.9); Platelet Count 178 K/mcL (140-400); Red Blood Count 4.22 M/mcL (3.82-4.97); Segmented Neutrophils % 74.2 %
[2017-08-02 13:08] LABS: INR 3.7; Prothrombin Time 40.8 Seconds (9.4-12.1)
[2017-08-02] MEDS ORDERED: 0.9 % Sodium Chloride 1,000 ML ONE (13:09)
[2017-08-02 13:11] LABS: Activated Partial Thrombo Time 39.5 Seconds (26.0-36.0)
[2017-08-02 13:18] LABS: Calcium 9.5 mg/dL (8.6-10.8); Magnesium 1.7 mg/dL (1.6-2.6); Potassium 3.9 mEq/L (3.5-4.5)
[2017-08-02 13:19] LABS: Platelet Estimate Normal (Normal)
[2017-08-02 13:20] LABS: Anisocytosis 1+ (Not Present); Hypochromasia Present (Not Present); Polychromasia 1+ (Not Present)
[2017-08-02 13:41] LABS: Thyroid Stimulating Hormone 1.542 mcIU/mL (0.350-4.840)
[2017-08-02] MEDS ORDERED: *HR* OxyCODONE Immed Rel 5 MG TABLET PO PRN (14:37)
[2017-08-02] MEDS ORDERED: *HR* LORazepam 1 MG TABLET PO PRN (14:37)
[2017-08-02] MEDS ORDERED: Naloxone 0.4 MG/ML INJ IVP PRN (14:40)
[2017-08-02] MEDS ORDERED: Magnesium Sulfate 2 GM in D5% in Water 100 ML IVPB ONE (14:42)
[2017-08-02] MEDS ORDERED: *HR* Warfarin 2.5 MG TABLET PO SCH (14:45)
--- NOTE | 2017-08-02 14:46 | Internal Med History&Physical ---
Date of Encounter: 08/02/17 Time of Encounter: 14:43 Assessment and Plan (1) Atrial fibrillation with rapid ventricular response Current visit: Yes Status: Acute dilt gtt, start PO dilt after, replete Mg 2, keep K >4 (2) Hypomagnesemia Current visit: No Status: Acute IV mag replacement (3) Hypothyroidism Current visit: No Status: Acute continue med Qualifiers: Hypothyroidism type: acquired Qualified Code(s): E03.9 - Hypothyroidism, unspecified Internal Medicine - H&P: HPI Chief complaint: SOB, fatigue History of present illness: Ms. Da Silva is a 87 year old female who presents with symptomatic atrial fibrillation. She has been experiencing symptomatic atrial fibrillation for several months now with generalized weakness, fatigue, intermittent shortness of breath on exertion. She has not been visiting [facility] ER multiple times but did not want to be admitted. He finally establish with cardiology today and was seen as an outpatient at cardiology [facility] where she was found to be in A. fib RVR and with symptoms. Given these findings she was advised to present to ER for emergent IV therapy. She improved 20 mg IV Cardizem. EKG reviewed by myself noted atrial fibrillation, RVR, rate of 1:15, PVCs intermittently noted EXAMINATION: SINGLE VIEW OF THE CHEST 08/02/2017 1:29 pm COMPARISON: 05/19/2017 HISTORY: ORDERING SYSTEM PROVIDED HISTORY: palpitations Additional tech notes: 11..ACCOUNT DEVELOPMENT MANAGER@[id number] FINDINGS: Elevation of the left diaphragm is again demonstrated, with adjacent airspace disease also again demonstrated without definitive change. This is not well evaluated due to portable technique and patient positioning. There is slight blunting of the left costophrenic angle suggested. No acute pulmonary process elsewhere. Cardiac and mediastinal shadows are unchanged. XR/XR chest 1V portable IMPRESSION: Left basilar airspace disease most likely atelectasis, less likely pneumonia. Possible small left pleural effusion. Past Med Surg Social Fam HX - Past Medical History Medical history: atrial fibrillation, CHF, coronary artery disease, CVA, GI bleed, hypertension, myocardial infarction Psychiatric history: anxiety - Past Surgical History Surgical History: non-contributory - Social History Smoking Status: Former smoker Smokeless Tobacco Status: No Alcohol use: none Drug use: none - Family History Mother Living Status: Hx Family Cardiac Disorders: No Hx Family Respiratory Disorders: No Hx Family Cancer: Yes (colon) Hx Family GI Disorders: No Hx Family Endocrine Disorder: No Hx Family Neuromuscular Disorders: No Hx Family Neurologic Disorders: No Hx Family HEENT Disorders: No Hx Family Autoimmune Disorders: No Internal Medicine - H&P: Meds LORazepam [Ativan] 0.5 mg PO TID PRN 08/07/16 [History] Aspirin [Lo-Dose Aspirin EC] 1 tab PO DAILY 08/11/16 [History] Acetaminophen [Tylenol] 500 mg PO TID PRN 05/19/17 [History] Cholecalciferol (D-3) [Vitamin D] 5,000 unit PO DAILY 05/19/17 [History] Metoprolol XL (24 HR) Succ [Toprol Xl] 25 mg PO DAILY 05/19/17 [History] Levothyroxine [Synthroid] 100 mcg PO DAILY #30 05/20/17 [Rx] Oxycodone HCl [Oxaydo] 2.5 - 5 mg PO Q6H PRN #60 06/18/17 [Rx] Clopidogrel [Plavix] 75 mg PO DAILY 08/02/17 [History] Diltiazem CD (24hr) [Cardizem CD] 120 mg PO DAILY 08/02/17 [History] Furosemide [Lasix] 40 mg PO DAILY 08/02/17 [History] Warfarin [Coumadin] 2.5 mg PO SUMOTUWETHFR 08/02/17 [History] Warfarin perPT [Coumadin perPT] 1.25 mg PO SA 08/02/17 [History] 3 Allergy/AdvReac Type Severity Reaction Status Date / Time tuberculin,PPD,multi-puncture Allergy Hypertensio Verified 04/22/17 13:20 n meperidine [From Demerol] AdvReac Vomiting Verified 04/22/17 13:20 IVP DYE Allergy Hives Uncoded 05/19/17 11:22 All Systems PM: A 10-system review of systems was performed and is negative for pertinent findings except as documented above in the HPI. Review of systems: ROS 14 point review of systems reviewed as best as possible given presentation. Pertinent positive or negative as per HPI or otherwise reviewed as negative - Constitutional Vitals: Temp Pulse Resp BP Pulse Ox 98.7 F 77 14 114/88 100 08/02/17 12:26 08/02/17 13:04 08/02/17 14:25 08/02/17 14:25 08/02/17 13:04 Exam: General - AAO x 3 Psych - Appropriate affect/speech. No agitation Eyes - ROLO. Eye lids intact. No scleral icterus Heart - Irregular. S1 and S2 present. No added HS/murmurs appreciated. No elevated JVD appreciated. Lung - Adequate air entry b/l, No crackles/wheezes appreciated GI - Soft, non-tender. No hepatosplenomegaly/ascites. BS+ - No CVA/suprapubic tenderness or palpable bladder distension Skin - Intact. No rash/petechiae/ecchymosis. Warm extremities Internal Med - H&P Results - Labs CBC & Chem 7: 08/02/17 12:56 08/02/17 12:56
[2017-08-02] MEDS ORDERED: Warfarin perPT PO PRN (18:00)
[2017-08-02] MEDS: *HR* LORazepam 0.5 MG TABLET PO PRN (21:47)
[2017-08-02] MEDS ORDERED: Metoprolol XL (24 HR) Succ 25 MG TAB.ER.24H PO ONE (23:34)
[2017-08-02] MEDS ORDERED: Melatonin 3 MG TABLET PO ONE (23:50)
[2017-08-03] MEDS ORDERED: Ondansetron 4 MG/2 ML VIAL IVP ONE (01:51)
[2017-08-03 06:14] LABS: INR 3.1; Prothrombin Time 34.7 Seconds (9.4-12.1)
[2017-08-03 06:21] LABS: Basophils % 0.2 %; Calcium 8.9 mg/dL (8.6-10.8); Magnesium 2.1 mg/dL (1.6-2.6); Mean Corpuscular Hemoglobin 23.1 pg (28.0-33.3); Potassium 4.1 mEq/L (3.5-4.5)
[2017-08-03 06:23] LABS: Eosinophils # 0.1 K/mcL (0.0-0.6); Eosinophils % 3.4 %; Hematocrit 27.5 % (35.3-44.9); Hemoglobin 7.8 g/dL (11.5-15.4); Immature Granulocytes % 0.5 % (0-4); Lymphocytes # 0.9 K/mcL (0.6-4.6); Lymphocytes % 21.9 %; Mean Corpuscular HGB Conc 28.4 g/dL (31.6-35.5); Mean Corpuscular Volume 81.6 fL (83.0-100.0); Mean Platelet Volume 10.8 fL (9.4-12.4); Monocytes # 0.5 K/mcL (0.0-1.3); Monocytes % 11.8 %; Platelet Count 141 K/mcL (140-400); Red Blood Count 3.37 M/mcL (3.82-4.97); Red Cell Distribution Width 17.8 % (11.5-14.5); Segmented Neutrophils % 62.2 %
[2017-08-03 06:33] LABS: Neutrophils # 2.6 K/mcL (1.6-8.9)
[2017-08-03 07:05] LABS: Anisocytosis 1+ (Not Present); Hypochromasia Present (Not Present); Macrocytosis Present (Not Present); Microcytosis Present (Not Present); Platelet Estimate Normal (Normal); Stomatocytes 1+ (Not Present)
[2017-08-03 07:06] LABS: Poikilocytosis 2+ (Not Present); Spherocytes 1+ (Not Present)
[2017-08-03] MEDS: Cholecalciferol (D-3) 1,000 UNIT TABLET PO SCH (08:22)
[2017-08-03] MEDS: Aspirin Enteric Coated 81 MG Tablet PO SCH (08:22)
[2017-08-03] MEDS: *HR* LORazepam 0.5 MG TABLET PO PRN (08:22)
[2017-08-03] MEDS: Furosemide 40 MG TABLET PO SCH (08:22)
--- NOTE | 2017-08-03 08:59 | Cardiology Consult Note ---
Date of Encounter: 08/03/17 Time of Encounter: 09:00 Assessment and Plan (1) Atrial fibrillation with rapid ventricular response Current Visit: Yes Status: Acute Atrial fibrillation with RVR on admission. Known history of afib on coumadin. HR better controlled on cardizem gtt 7.5 mg /HR. Will increase home dose of cardizem CD from 120 mg daily to 180 mg daily and stop cardizem gtt. Continue toprol XL. TTE 06/09/17 at [place]: LVEF 40-45% (hypokinesis of mid inferior, mid inferolateral, and apical lateral segments, akinesis of basal inferior wall), moderate concentric LVH, mild RV dysfunction, mild MR, mild-moderate TR, RVSP 60 -65 mmHg. She is a CHADS VASc=8 (CHF, HTN, age2, CVA2, gender, CAD). She is high risk for recurrent CVA. On coumadin followed by [facility]. Noted to be anemic today. Denies active bleeding. H/o GI bleeding 11/2025 d/t colon cancer. She is s/p colon resection and pending liver surgery due to liver mets. Primary team following anemia. Coumadin currently on hold for supratherapeutic INR. Restart coumadin once patient thought to be safe from bleeding standpoint. (2) Acute exacerbation of congestive heart failure Current Visit: No Status: Resolved Acute on chronic systolic and diastolic CHF. Recently given lasix four days ago. Reports breathing is better, continues to have dyspnea on exertion. BNP 2050. CXR showed bibasilar airspace disease. Small left pleural effusion. Will give one dose IV lasix. Gentle IV diuresis. TTE 12/25/15: LVEF 60-65%, mild LVH, mild diastolic dysfunction, atypical septal motion, normal RV, no significant valvular dysfunction, increased velocity at origin of branch of aortic arch, dedicated carotid imaging was recommended. TTE 06/09/17 at [place]: LVEF 40-45% (hypokinesis of mid inferior, mid inferolateral, and apical lateral segments, akinesis of basal inferior wall), moderate concentric LVH, mild RV dysfunction, mild MR, mild-moderate TR, RVSP 60 -65 mmHg. Strict I&O and daily weights. Low sodium diet. Qualifiers: Congestive heart failure type: diastolic Qualified Code(s): I50.33 - Acute on chronic diastolic (congestive) heart failure (3) Coronary artery disease Current Visit: No Status: Chronic H/o CAD s/p CABG x 3 V in 2001 and multiple PCI. EKG shows atrial fibrillation with RVR. No acute ST changed. Non specifc T wave changes. Troponin negative. Denies chest pain. Continue beta-mingo, statin, and aspirin. Qualifiers: Coronary Disease-Associated Artery/Lesion type: [place] artery [place] vs. transplanted heart: [place] heart Associated angina: angina presence unspecified Qualified Code(s): I25.10 - Atherosclerotic heart disease of [place] coronary artery without angina pectoris (4) Colon cancer Current Visit: No Status: Chronic H/o colon cancer with liver mets. S/p colon resection. Awaiting surgery on liver. Qualifiers: Colon location: ascending Qualified Code(s): C18.2 - Malignant neoplasm of ascending colon Discussion w patient/family: The assessment and plan as outlined above was discussed with the patient and/or family members who expressed understanding and agreement. All questions were answered. Thank you for involving us in the care of your patient. Please call with any questions. History of Present Illness Consult date: 08/03/17 Requesting physician: Leo Baeza Consult reason: atrial fibrillation with rvr Chief complaint: Weakness, fatigue, nausea, and constipation. History of present illness: Ms. Da Silva is a 87 year old female with a history of CAD s/p 3V CABG in 2001, multiple PCI, Atrial fibrillation on coumadin, CVA, GI bleed, colon cancer with mets to the liver s/p colon resection 11/2015 who was sent to the ER from the cardiology office for atrial fibrillation with RVR. She c/o weakness, fatigue, SOB, and nausea for two weeks. She was seen at [facility] four days ago for her complaints. She was diagnosed with acute CHF, atrial fibrillation, and kidney infection. She was recommended for admission to the hospital and she declined at that time. She was seen in the cardiology office yesterday and continued to feel poor . Her heart rate was seen to be in the 120's. She was agreeable to go to the ER at that time. She was scheduled for liver surgery on July at [facility] and missed her appointment. She was given IV cardizem bolus and started on cardizem gtt and her heart rate improved. INR was found to be supratherapeutic at 3.7. Coumadin was held. Today her Hgb decreased to 7.8 from 9.6. She denies signs of bleeding. On my exam she is tearful. C/o abdominal bloating and constipation for the past four days. C/o weakness and fatigue. Denies chest pain or palpitatins. Denies SOB at rest. admits to SOB with minimal activity. Past Med Surg Social Fam HX - Past Medical History Attestation: Yes The following information was validated with the patient. Medical history: atrial fibrillation, CHF, coronary artery disease, CVA, GI bleed, hypertension, myocardial infarction Psychiatric history: anxiety - Past Surgical History Surgical History: non-contributory - Social History Smoking Status: Former smoker Smokeless Tobacco Status: No Alcohol use: none Drug use: none - Family History Mother Name: Suzanne Lind Living Status: Age at : 101 Cause of : Heart attack Hx Family Cardiac Disorders: No Hx Family Respiratory Disorders: No Hx Family Cancer: Yes (colon) Hx Family GI Disorders: No Hx Family Genitourinary Disorders: Yes Hx Family Endocrine Disorder: No Hx Family Musculoskeletal Disorders: Yes (Osteoarthritis) Hx Family Neuromuscular Disorders: No Hx Family Neurologic Disorders: No Hx Family HEENT Disorders: No Hx Family Autoimmune Disorders: No Hx Family Reproductive Disorders: No Hx Family Psychosocial Disorders: No Hx Family Medical Disorders: No Medications and Allergies LORazepam [Ativan] 0.5 mg PO TID PRN 08/07/16 [History] Aspirin [Lo-Dose Aspirin EC] 1 tab PO DAILY 08/11/16 [History] Acetaminophen [Tylenol] 500 mg PO TID PRN 05/19/17 [History] Cholecalciferol (D-3) [Vitamin D] 5,000 unit PO DAILY 05/19/17 [History] Metoprolol XL (24 HR) Succ [Toprol Xl] 25 mg PO DAILY 05/19/17 [History] Levothyroxine [Synthroid] 100 mcg PO DAILY #30 05/20/17 [Rx] Oxycodone HCl [Oxaydo] 2.5 - 5 mg PO Q6H PRN #60 06/18/17 [Rx] Clopidogrel [Plavix] 75 mg PO DAILY 08/02/17 [History] Diltiazem CD (24hr) [Cardizem CD] 120 mg PO DAILY 08/02/17 [History] Furosemide [Lasix] 40 mg PO DAILY 08/02/17 [History] Warfarin [Coumadin] 2.5 mg PO SUMOTUWETHFR 08/02/17 [History] Warfarin perPT [Coumadin perPT] 1.25 mg PO SA 08/02/17 [History] 3 Allergy/AdvReac Type Severity Reaction Status Date / Time tuberculin,PPD,multi-puncture Allergy Hypertensio Verified 04/22/17 13:20 n meperidine [From Demerol] AdvReac Vomiting Verified 04/22/17 13:20 IVP DYE Allergy Hives Uncoded 05/19/17 11:22 All Systems Review: A 10-system review of systems was performed and is negative for pertinent findings except as documented above in the HPI. Physical Examination Vital Signs, Last 4 Hours Temp Pulse Resp BP Pulse Ox 08/03/17 07:07 97.5 F L 70 16 99/60 94 08/03/17 05:13 97.5 F L 68 14 98/63 General: Conversant, Other (Tearful) HEENT: Atraumatic, Normocephaly, Mucus Membranes Moist Neck: No JVD, Normal carotid pulses Cardiac: Other (Irregularly irregular) Lungs: Normal Breath Sounds, No Wheeze, Rales, Rhonchi Neuro: Alert and responsive, No focal deficits noted Abdomen: Soft, Other (C/o lower abdominal pain with palpation.) Skin: No rashes noted on visualized skin Musculoskeletal: No Chest Wall Tenderness Extremities: No Clubbing, No Cyanosis, No Edema, Normal Pulses, Other (red rash noted on BLE.) Results 08/03/17 05:50 08/03/17 05:50 Lab Results 08/03/17 08/03/17 08/03/17 05:50 05:50 05:50 WBC 4.1 L Hgb 7.8 L D Hct 27.5 L Plt Count 141 INR 3.1 Sodium 139 Potassium 4.1 Chloride 107 Carbon Dioxide 27 BUN 28 H Creatinine 1.24 H Glucose 98 Calcium 8.9 Magnesium 2.1 - Imaging and Cardiology Echo: report reviewed Consult Discharge Plan - Plan Referrals: Phyllis Parsons, EVENT DECORATOR AND DESIGNER [Primary Care Provider] -
[2017-08-03] MEDS ORDERED: Diltiazem CD (24hr) 180 MG CAPSULE PO SCH (09:00)
[2017-08-03] MEDS ORDERED: Diltiazem CD (24hr) 120 MG CAPSULE PO SCH (09:00)
[2017-08-03] MEDS ORDERED: Metoprolol XL (24 HR) Succ 25 MG TAB.ER.24H PO SCH (09:00)
[2017-08-03] MEDS ORDERED: Furosemide 20 MG/2 ML VIAL IVP ONE ×2 (09:34→12:00)
[2017-08-03] MEDS ORDERED: *HR* OxyCODONE Immed Rel 5 MG TABLET PO PRN (11:16)
--- NOTE | 2017-08-03 16:38 | Electrocardiograph Report ---
[address] [place] [address] Test Date: 2017-08-02 Pat Name: Kamila Da Silva Department: 103 Room: 2A38 Gender: F Medical Practice Assistant: MSC : [id number] Requested By: Reese Nuñez Order Number: [id number] Reading MD: Phyllis Elliott Measurements Intervals [place] Rate: 115 P: DE: 0 QRS: 83 QRSD: 110 T: 188 QT: 336 QTc: 404 Interpretive Statements ATRIAL FIBRILLATION WITH RAPID VENTRICULAR RESPONSE WITH ABERRANT CONDUCTION OR VENTRICULAR PREMATURE COMPLEXES SEPTAL MYOCARDIAL INFARCTION [40+ ms Q WAVE IN V1/V2], PROBABLY OLD MODERATE T-WAVE ABNORMALITY, CONSIDER ANTEROLATERAL ISCHEMIA [-0.1+ mV T WAVE IN V3-V6] Electronically Signed On 08-03-2017 16:37:10 EDT by Phyllis Elliott
[2017-08-03] MEDS ORDERED: *HR* Warfarin 2.5 MG TABLET PO ONE (18:00)
--- NOTE | 2017-08-03 18:49 | Internal Med Progress Note ---
Date of Encounter: 08/03/17 Time of Encounter: 15:00 - Assessment and plan (1) Atrial fibrillation with rapid ventricular response Current Visit: Yes Status: Acute Assessment and plan: Cardiology consulted. Rate is controlled and currently patient having Toprol XL adjusted. On Cardizem CD 120 mg daily. Anticoag with Coumadin, currently supratherapeutic INR. (2) Hypertension Current Visit: No Status: Acute Qualifiers: Hypertension type: essential hypertension Qualified Code(s): I10 - Essential (primary) hypertension (3) Anemia Current Visit: No Status: Chronic Assessment and plan: Shes high risk for VTE, with acute drop in Hgb. Hemoglobin dropped from 9.6 tot 7.8. Recheck H&H, may need transfused. INR 3.1, recheck tomorrow. Qualifiers: Anemia type: iron deficiency Iron deficiency anemia type: unspecified iron deficiency Qualified Code(s): D50.9 - Iron deficiency anemia, unspecified (4) CKD (chronic kidney disease), stage III Current Visit: No Status: Chronic (5) Coronary artery disease Current Visit: No Status: Chronic Qualifiers: Coronary Disease-Associated Artery/Lesion type: [place] artery [place] vs. transplanted heart: [place] heart Associated angina: angina presence unspecified Qualified Code(s): I25.10 - Atherosclerotic heart disease of [place] coronary artery without angina pectoris - Subjective Interval history: No acute events. Patient would like to go home today. She denies CP/SOB, palpitations, numbness/tingling, N/V. - Constitutional Vitals: Temp Pulse Resp BP Pulse Ox 97.8 F 81 17 108/76 100 08/03/17 16:06 08/03/17 16:06 08/03/17 16:06 08/03/17 16:06 08/03/17 16:06 Exam: General - AAO x 3 Psych - Appropriate affect/speech. No agitation Eyes - ROLO. Eye lids intact. No scleral icterus Heart - Irregular. S1 and S2 present. No added HS/murmurs appreciated. No elevated JVD appreciated. Lung - Adequate air entry b/l, No crackles/wheezes appreciated GI - Soft, non-tender. No hepatosplenomegaly/ascites. BS+ - No CVA/suprapubic tenderness or palpable bladder distension Skin - Intact. No rash/petechiae/ecchymosis. Warm extremities Internal Medicine: Result - Labs CBC & Chem 7: 08/03/17 05:50 08/03/17 05:50 Labs: Short CBC 08/03/17 Range/Units 05:50 WBC 4.1 L (4.3-11.1) K/mcL Hgb 7.8 L D (11.5-15.4) g/dL Hct 27.5 L (35.3-44.9) % Plt Count 141 (140-400) K/mcL Neutrophils # 2.6 (1.6-8.9) K/mcL BMP 08/03/17 05:50 Sodium 139 Potassium 4.1 Chloride 107 Carbon Dioxide 27 BUN 28 H Creatinine 1.24 H Glucose 98 Calcium 8.9 - ABG Interpretation ABG results: PT/INR, D-dimer PT 34.7 Seconds (9.4-12.1) H 08/03/17 05:50 Consult Discharge Plan - Plan Referrals: Phyllis Parsons CNP [Primary Care Provider] - 08/12/17 1:00 pm (Please follow up as schedule...)
[2017-08-04 06:16] LABS: Calcium 9.2 mg/dL (8.6-10.8); Magnesium 1.9 mg/dL (1.6-2.6); Potassium 4.2 mEq/L (3.5-4.5)
[2017-08-04 06:53] LABS: INR 2.3; Prothrombin Time 24.7 Seconds (9.4-12.1)
[2017-08-04 08:23] LABS: Basophils % 0.4 %; Eosinophils # 0.2 K/mcL (0.0-0.6); Hematocrit 30.4 % (35.3-44.9); Hemoglobin 8.7 g/dL (11.5-15.4); Immature Granulocytes % 0.4 % (0-4); Lymphocytes # 0.9 K/mcL (0.6-4.6); Lymphocytes % 17.5 %; Mean Corpuscular HGB Conc 28.6 g/dL (31.6-35.5); Mean Corpuscular Hemoglobin 23.1 pg (28.0-33.3); Mean Corpuscular Volume 80.9 fL (83.0-100.0); Mean Platelet Volume 10.8 fL (9.4-12.4); Monocytes # 0.4 K/mcL (0.0-1.3); Monocytes % 8.7 %; Neutrophils # 3.5 K/mcL (1.6-8.9); Platelet Count 152 K/mcL (140-400); Red Blood Count 3.76 M/mcL (3.82-4.97); Red Cell Distribution Width 17.8 % (11.5-14.5)
[2017-08-04] MEDS: Diltiazem CD (24hr) 120 MG CAPSULE PO SCH ×2 (08:24→08:27)
[2017-08-04] MEDS: Cholecalciferol (D-3) 1,000 UNIT TABLET PO SCH (08:24)
[2017-08-04] MEDS: Aspirin Enteric Coated 81 MG Tablet PO SCH (08:24)
[2017-08-04] MEDS: Furosemide 40 MG TABLET PO SCH (08:24)
[2017-08-04 08:56] LABS: Anisocytosis 1+ (Not Present); Hypochromasia Present (Not Present); Platelet Estimate Normal (Normal)
[2017-08-04] MEDS ORDERED: Metoprolol XL (24 HR) Succ 50 MG TAB.ER.24H PO SCH (09:00)
--- NOTE | 2017-08-04 09:17 | Cardiology Progress Note ---
Date of Encounter: 08/04/17 Time of Encounter: 08:00 Assessment and Plan (1) Atrial fibrillation with rapid ventricular response Current Visit: Yes Status: Acute Atrial fibrillation with RVR on admission. Known history of afib on coumadin. HR better controlled. Avg HR was 97 BPM over last 12 hours. HR currently 110. HR better controlled on cardizem gtt 7.5 mg /HR. Will increase home dose of cardizem CD from 120 mg daily to 180 mg daily and stop cardizem gtt. Toprol XL increased to 25 mg daily. Continue cardizem. Increase meds as tolerated and as b/p allows. TTE 06/09/17 at [place]: LVEF 40-45% (hypokinesis of mid inferior, mid inferolateral, and apical lateral segments, akinesis of basal inferior wall), moderate concentric LVH, mild RV dysfunction, mild MR, mild-moderate TR, RVSP 60 -65 mmHg. She is a CHADS VASc=8 (CHF, HTN, age2, CVA2, gender, CAD). She is high risk for recurrent CVA. On coumadin followed by [facility]. Noted that hgb droped yesterday and now increasing. Denies active bleeding currently. Reported bleeding from hemorrhoids prior to admission. H/o GI bleeding 11/2025 d/ t colon cancer. She is s/p colon resection and pending liver surgery due to liver mets. Primary team following anemia. Hgb improved without transfusion. Known chronic anemia. Recommend continuing coumadin. Currently ordered for pharmacy to dose. (2) Acute exacerbation of congestive heart failure Current Visit: No Status: Resolved Acute on chronic systolic and diastolic CHF. Recently started on lasix four days ago. Reports breathing is better, continues to have dyspnea on exertion. BNP 2050. CXR showed bibasilar airspace disease. Small left pleural effusion. IV lasix given yesterday and symptoms improved. Continue lasix 40 mg daily. TTE 12/25/15: LVEF 60-65%, mild LVH, mild diastolic dysfunction, atypical septal motion, normal RV, no significant valvular dysfunction, increased velocity at origin of branch of aortic arch, dedicated carotid imaging was recommended. TTE 06/09/17 at [place]: LVEF 40-45% (hypokinesis of mid inferior, mid inferolateral, and apical lateral segments, akinesis of basal inferior wall), moderate concentric LVH, mild RV dysfunction, mild MR, mild-moderate TR, RVSP 60 -65 mmHg. Strict I&O and daily weights. Low sodium diet. Qualifiers: Congestive heart failure type: diastolic Qualified Code(s): I50.33 - Acute on chronic diastolic (congestive) heart failure (3) Coronary artery disease Current Visit: No Status: Chronic H/o CAD s/p CABG x 3 V in 2001 and multiple PCI. Recent NSTEMI at [facility] in June. Medical managment recommended due to multiple co-morbidities and colon cancer with mets to liver requiring intervention. EKG shows atrial fibrillation with RVR. No acute ST changed. Non specifc T wave changes. Troponin negative. Denies chest pain. Continue beta-mingo, statin, and aspirin. Qualifiers: Coronary Disease-Associated Artery/Lesion type: [place] artery [place] vs. transplanted heart: [place] heart Associated angina: angina presence unspecified Qualified Code(s): I25.10 - Atherosclerotic heart disease of [place] coronary artery without angina pectoris (4) Colon cancer Current Visit: No Status: Chronic H/o colon cancer with liver mets. S/p colon resection. Awaiting procedure on liver mass. Qualifiers: Colon location: ascending Qualified Code(s): C18.2 - Malignant neoplasm of ascending colon Discussion w patient/family: The assessment and plan as outlined above was discussed with the patient and/or family members who expressed understanding and agreement. All questions were answered. Thank you for involving us in the care of your patient. Please call with any questions. Subjective Principal diagnosis: CHF, afib Interval history: Ms. Da Silva reports she is feeling better. She did have a small bowel movement that help relief alot of her distress. She is laying flat in bed breathing normal. Denies orthopnea. BLE edema resolved. Denies palpitations and chest pain. Objective Vital Signs, Last 4 Hours Temp Pulse Resp BP Pulse Ox 08/04/17 07:35 98.2 F 77 18 112/79 95 General: Conversant, No Apparent Distress HEENT: Atraumatic, Normocephaly, Mucus Membranes Moist Neck: No JVD, Normal carotid pulses Cardiac: No Murmur, Other (Irregularly irregular) Lungs: Normal Breath Sounds, No Wheeze, Rales, Rhonchi Neuro: Alert and responsive, No focal deficits noted Abdomen: Soft, Non-Tender, Other (Mildly tender over pelvic area. Improved. ) Skin: No rashes noted on visualized skin Musculoskeletal: No Chest Wall Tenderness Extremities: No Clubbing, No Cyanosis, No Edema, Normal Pulses Results 08/04/17 06:30 08/04/17 05:10 Lab Results 08/04/17 08/04/17 08/04/17 05:10 06:30 06:30 WBC 5.0 Hgb 8.7 L Hct 30.4 L Plt Count 152 INR 2.3 Sodium 138 Potassium 4.2 Chloride 106 Carbon Dioxide 25 BUN 27 H Creatinine 1.30 H Glucose 97 Calcium 9.2 Magnesium 1.9 - EKG Interpretation EKG results cardiology: personally reviewed Consult Discharge Plan - Plan Referrals: Phyllis Parsons CNP [Primary Care Provider] - 08/12/17 1:00 pm (Please follow up as schedule...)
[2017-08-04 11:22] VITALS: BP 114/79
[2017-08-04] MEDS ORDERED: Metoprolol XL (24 HR) Succ 25 MG TAB.ER.24H PO ONE (15:17)
--- NOTE | 2017-08-04 15:44 | Discharge Summary ---
Date of Encounter: 08/04/17 Time of Encounter: 15:33 - Discharge Diagnosis (1) Atrial fibrillation with rapid ventricular response Priority: Primary Status: Acute (2) Hypertension Priority: Secondary Status: Acute Qualifiers: Hypertension type: essential hypertension Qualified Code(s): I10 - Essential (primary) hypertension (3) Anemia Priority: Secondary Status: Chronic Qualifiers: Anemia type: iron deficiency Iron deficiency anemia type: unspecified iron deficiency Qualified Code(s): D50.9 - Iron deficiency anemia, unspecified (4) CKD (chronic kidney disease), stage III Priority: Secondary Status: Chronic (5) Coronary artery disease Priority: Secondary Status: Chronic Qualifiers: Coronary Disease-Associated Artery/Lesion type: [place] artery [place] vs. transplanted heart: [place] heart Associated angina: angina presence unspecified Qualified Code(s): I25.10 - Atherosclerotic heart disease of [place] coronary artery without angina pectoris - Discharge Medications Home Medications: LORazepam [Ativan] 0.5 mg PO TID PRN 08/07/16 [History] Aspirin [Lo-Dose Aspirin EC] 1 tab PO DAILY 08/11/16 [History] Acetaminophen [Tylenol] 500 mg PO TID PRN 05/19/17 [History] Cholecalciferol (D-3) [Vitamin D] 5,000 unit PO DAILY 05/19/17 [History] Levothyroxine [Synthroid] 100 mcg PO DAILY #30 05/20/17 [Rx] Oxycodone HCl [Oxaydo] 2.5 - 5 mg PO Q6H PRN #60 06/18/17 [Rx] Clopidogrel [Plavix] 75 mg PO DAILY 08/02/17 [History] Diltiazem CD (24hr) [Cardizem CD] 120 mg PO DAILY 08/02/17 [History] Furosemide [Lasix] 40 mg PO DAILY 08/02/17 [History] Warfarin [Coumadin] 2.5 mg PO SUMOTUWETHFR 08/02/17 [History] Metoprolol XL (24 HR) Succ [Toprol XL] 75 mg PO DAILY #90 tab.er.24h 08/04/17 [ Rx] Allergies/Adverse Reactions: 3 Allergy/AdvReac Type Severity Reaction Status Date / Time tuberculin,PPD,multi-puncture Allergy Hypertensio Verified 04/22/17 13:20 n meperidine [From Demerol] AdvReac Vomiting Verified 04/22/17 13:20 IVP DYE Allergy Hives Uncoded 05/19/17 11:22 Date of admission: 08/02/17 15:58 Primary care physician: Phyllis Parsons CNP Consults: 08/04/17 02:25 Consult to Pastoral Services [CONS] Routine Comment: - Patient Status Disposition: Home Health Service Condition: Fair Functional capacity at discharge: independent ambulation Overall status at discharge: patient is progressing back to baseline - Discharge Instructions Instructions: Warfarin (By mouth), Atrial Fibrillation (DC) Follow Up With: Phyllis Parsons CNP [Primary Care Provider] - 08/12/17 1:00 pm (Please follow up as schedule...) - Diet and Activity Activity: increase activity as tolerated Interval History: Ms. Da Silva is a 87 year old female who presents with symptomatic atrial fibrillation. She has been experiencing symptomatic atrial fibrillation for several months now with generalized weakness, fatigue, intermittent shortness of breath on exertion. She has not been visiting [facility] ER multiple times but did not want to be admitted. He finally establish with cardiology today and was seen as an outpatient at cardiology group where she was found to be in A. fib RVR and with symptoms. Given these findings she was advised to present to ER for emergent IV therapy. She improved 20 mg IV Cardizem. Hospital course: She was started on a Cardizem drip. Eventually was able to transition to by mouth Cardizem as well as Toprol-XL. Her chads best score was 8 making her high risk for CVA. She did seem to have a drop in hemoglobin to 7.8 however her hemoglobin came back up to 8.7, and she had no signs of acute bleed. Her Coumadin was continued at home dose. Patient was able to have Toprol increased to 75 mg XL daily, and Cardizem CD 120 mg daily and her heart rate remained within acceptable limits during that time. She no longer had any palpitations and remained with a normal heart rate and was discharged home. - Time Spent with Patient Total time spent providing and/or coordinating discharge services: - Constitutional Vitals: Temp Pulse Resp BP Pulse Ox 97.7 F 100 17 114/79 97 08/04/17 11:17 08/04/17 11:17 08/04/17 11:17 08/04/17 11:17 08/04/17 11:17 Exam: General - AAO x 3 Psych - Appropriate affect/speech. No agitation Eyes - ROLO. Eye lids intact. No scleral icterus Heart - Irregular. S1 and S2 present. No added HS/murmurs appreciated. No elevated JVD appreciated. Lung - Adequate air entry b/l, No crackles/wheezes appreciated GI - Soft, non-tender. No hepatosplenomegaly/ascites. BS+ - No CVA/suprapubic tenderness or palpable bladder distension Skin - Intact. No rash/petechiae/ecchymosis. Warm extremities
--- NOTE | 2017-08-04 15:58 | Physician Discharge Referral ---
Home Health/Hosp Referral Info Transfer to: Home Health Provider in Charge Post Discharge: PCP - Diagnosis (1) Atrial fibrillation with rapid ventricular response Priority: Primary Status: Acute (2) Hypertension Priority: Secondary Status: Acute (3) Anemia Priority: Secondary Status: Chronic (4) CKD (chronic kidney disease), stage III Priority: Secondary Status: Chronic (5) Coronary artery disease Priority: Secondary Status: Chronic - Respiratory Orders Smoking Cessation: Smoking cessation has been advised. For more information, call the [place] Tobacco Quit Line at 6-829-PEBP-NOW. - Diet/Nutrition Diet/Nutrition Orders: Cardiac - Activity Activity Orders: Up ad tylor - Services Needed Following services are medically necessary services: Nursing, Home Health Aide, Physical Therapy Home Care Orders: Bath aid - Transfer Medications Prescriptions: Metoprolol XL (24 HR) Succ [Toprol XL] 75 mg PO DAILY #90 tab.er.24h Home Medications: LORazepam [Ativan] 0.5 mg PO TID PRN 08/07/16 [History] Aspirin [Lo-Dose Aspirin EC] 1 tab PO DAILY 08/11/16 [History] Acetaminophen [Tylenol] 500 mg PO TID PRN 05/19/17 [History] Cholecalciferol (D-3) [Vitamin D] 5,000 unit PO DAILY 05/19/17 [History] Levothyroxine [Synthroid] 100 mcg PO DAILY #30 05/20/17 [Rx] Oxycodone HCl [Oxaydo] 2.5 - 5 mg PO Q6H PRN #60 06/18/17 [Rx] Clopidogrel [Plavix] 75 mg PO DAILY 08/02/17 [History] Diltiazem CD (24hr) [Cardizem CD] 120 mg PO DAILY 08/02/17 [History] Furosemide [Lasix] 40 mg PO DAILY 08/02/17 [History] Warfarin [Coumadin] 2.5 mg PO SUMOTUWETHFR 08/02/17 [History] Metoprolol XL (24 HR) Succ [Toprol XL] 75 mg PO DAILY #90 tab.er.24h 08/04/17 [ Rx] Allergies/Adverse Reactions: 3 Allergy/AdvReac Type Severity Reaction Status Date / Time tuberculin,PPD,multi-puncture Allergy Hypertensio Verified 04/22/17 13:20 n meperidine [From Demerol] AdvReac Vomiting Verified 04/22/17 13:20 IVP DYE Allergy Hives Uncoded 05/19/17 11:22 Certification: Further, I certify that my clinical findings support that this patient is homebound (i.e. absences from home require considerable and taxing effort and are for medical reasons or hindu services or infrequently or short duration when for other reasons) because: Homebound Reason: Patient requires assistance of a person or device to safely leave home, Leaving home requires considerable and taxing effort due to condition, Severity of cardiac or pulmonary status limits activity tolerance Attestation: My signature below is to certify that this patient is under my care and that I, or nurse practitioner, or a physician's triage assistant working with me, has a face-to -face encounter with this patient.
[2017-08-04] MEDS ORDERED: *HR* Warfarin 2 MG TABLET PO ONE (18:00)
[2017-08-05] MEDS ORDERED: Metoprolol XL (24 HR) Succ 50 MG TAB.ER.24H PO SCH (09:00)
[2017-08-07] MEDS ORDERED: Warfarin perPT PO SCH (14:37)
== END 2017-08-04 16:42 | disposition home health service (06) | DRG 308 ==
LOC: EMEROO 12:20 → 2ANU 12:20 → SUATTDRO 15:58
PROVIDERS: ADMIT Internal Medicine Hematology & Oncology; ATTEND Student in an Organized Health Care Education/Training Program

== ENCOUNTER 2017-08-25 06:02 | Inpatient (IN) ==
[2017-08-25] MEDS ORDERED: 0.9 % Sodium Chloride 1,000 ML ONE (08:24)
[2017-08-25] MEDS ORDERED: *HR* Digoxin 0.5 MG/2 ML AMPUL IVP ONE (08:27)
--- NOTE | 2017-08-25 08:32 | Internal Med History&Physical ---
Date of Encounter: 08/25/17 Time of Encounter: 08:29 Assessment and Plan (1) HCAP (healthcare-associated pneumonia) Current visit: Yes Status: Acute CT scan performed at outside facility showed basilar pneumonia. We will start the patient on Zosyn given recent hospitalization earlier this month at our facility. Check sputum culture (2) Diarrhea Current visit: Yes Status: Acute Which check stool for C diff. CT scan of the abdomen and pelvis without oral or IV contrast performed at outside facility did not show any bowel pathology Qualifiers: Qualified Code(s): R19.7 - Diarrhea, unspecified (3) NSTEMI (non-ST elevated myocardial infarction) Current visit: Yes Status: Acute Suspect non-stemi type 2 due to demand ischemia. Check Serial troponin. EKG shows lateral ST segment depression. Patient is on Coumadin for atrial fibrillation. Will continue (4) Atrial fibrillation with RVR Current visit: Yes Status: Acute Rate uncontrolled. Patient is relatively hypotensive. Will give the patient IV digoxin. hold blood pressure lowering medications for now including metoprolol and Cardizem. We monitor urine output if not optimal will gently hydrate the patient Internal Medicine - H&P: HPI Chief complaint: sob History of present illness: Ms. Da Silva is a 87 year old female was transferred from [facility] for further management. Patient was admitted at [facility] with a main complain of SOB with minimal exertion and non productive cough. She has also been noticing swelling in both lower extremities and mentioned that she had about 10 pounds weight gain over the past few weeks. She denies any fevers or chills. She mentions intermittent retrosternal chest pain however she had not had any chest pain the past couple of days according to her. Patient was recently hospitalized at our facility within the past month. Patient mentioned that she is having watery diarrhea. Approximately 5 watery bowel movements daily. She also has abdominal discomfort across lower abdomen. She has been on antibiotics at the outside facility for pneumonia. She has not been on antibiotics prior to hospitalization at [facility] Past Med Surg Social Fam HX - Past Medical History Medical history: atrial fibrillation, CHF, coronary artery disease, CVA, GI bleed, hypertension, myocardial infarction Psychiatric history: anxiety - Past Surgical History Surgical History: non-contributory - Social History Smoking Status: Former smoker Smokeless Tobacco Status: No Alcohol use: none Drug use: none - Family History Mother History Unknown: Yes Age: 101 Family Member Ethnicity: Unknown Living Status: Cause of : heart attack Hx Family Cardiac Disorders: No Hx Family Respiratory Disorders: No Hx Family Cancer: Yes (colon) Hx Family GI Disorders: No Hx Family Endocrine Disorder: No Hx Family Neuromuscular Disorders: No Hx Family Neurologic Disorders: No Hx Family HEENT Disorders: No Hx Family Autoimmune Disorders: No Internal Medicine - H&P: Meds LORazepam [Ativan] 0.5 mg PO TID PRN 08/07/16 [History] Aspirin [Lo-Dose Aspirin EC] 1 tab PO DAILY 08/11/16 [History] Acetaminophen [Tylenol] 500 mg PO TID PRN 05/19/17 [History] Cholecalciferol (D-3) [Vitamin D] 5,000 unit PO DAILY 05/19/17 [History] Levothyroxine [Synthroid] 100 mcg PO DAILY #30 05/20/17 [Rx] Oxycodone HCl [Oxaydo] 2.5 - 5 mg PO Q6H PRN #60 06/18/17 [Rx] Clopidogrel [Plavix] 75 mg PO DAILY 08/02/17 [History] Diltiazem CD (24hr) [Cardizem CD] 120 mg PO DAILY 08/02/17 [History] Furosemide [Lasix] 40 mg PO DAILY 08/02/17 [History] Warfarin [Coumadin] 2.5 mg PO SUWETHSA 08/02/17 [History] Metoprolol XL (24 HR) Succ [Toprol XL] 75 mg PO DAILY #90 tab.er.24h 08/04/17 [ Rx] Warfarin [Coumadin] 1.25 mg PO FR 08/25/17 [History] 3 Allergy/AdvReac Type Severity Reaction Status Date / Time tuberculin,PPD,multi-puncture Allergy Hypertensio Verified 04/22/17 13:20 n meperidine [From Demerol] AdvReac Vomiting Verified 04/22/17 13:20 IVP DYE Allergy Hives Uncoded 05/19/17 11:22 All Systems PM: A 10-system review of systems was performed and is negative for pertinent findings except as documented above in the HPI. Review of systems: 10 point review of systems is negative except for HPI - Constitutional Vitals: Temp Pulse Resp BP Pulse Ox 96.8 F L 112 16 101/70 90 08/25/17 06:08 08/25/17 06:20 08/25/17 06:08 08/25/17 06:08 08/25/17 06:08 Exam: Gen.: patient is alert oriented times 3 cardiac: normal S1 S2 no additional sounds or murmurs chest: few crackles in right base abdomen soft tenderness to deep palpation in periumbilical area lower extremity no swelling. Neuro: no new focal deficits
[2017-08-25 08:49] LABS: Basophils % 0.2 %; Hemoglobin 6.6 g/dL (11.5-15.4); Immature Granulocytes % 0.3 % (0-4)
[2017-08-25 08:52] LABS: Eosinophils % 0.2 %; Hematocrit 24.8 % (35.3-44.9); Lymphocytes # 0.6 K/mcL (0.6-4.6); Lymphocytes % 9.6 %; Mean Corpuscular HGB Conc 26.6 g/dL (31.6-35.5); Mean Corpuscular Hemoglobin 22.3 pg (28.0-33.3); Mean Corpuscular Volume 83.8 fL (83.0-100.0); Mean Platelet Volume 10.5 fL (9.4-12.4); Monocytes # 0.4 K/mcL (0.0-1.3); Monocytes % 7.3 %; Nucleated Red Blood Cells 0.5 /100 WBC (0); Platelet Count 132 K/mcL (140-400); Red Blood Count 2.96 M/mcL (3.82-4.97); Red Cell Distribution Width 17.9 % (11.5-14.5); Segmented Neutrophils % 82.4 %
[2017-08-25 08:57] LABS: Neutrophils # 4.9 K/mcL (1.6-8.9)
[2017-08-25] MEDS ORDERED: Aspirin Enteric Coated 81 MG Tablet PO SCH (09:00)
[2017-08-25 09:03] LABS: INR 4.7
[2017-08-25 09:05] LABS: Albumin 2.6 g/dL (3.5-5.0); Bilirubin,Total 1.2 mg/dL (0.2-1.2); Calcium 7.6 mg/dL (8.6-10.8); Globulin 2.6 g/dL (2.4-3.5); Magnesium 1.9 mg/dL (1.6-2.6); Potassium 5.2 mEq/L (3.5-4.5); Total Protein 5.2 g/dL (6.0-8.3)
[2017-08-25] MEDS ORDERED: 0.9 % Sodium Chloride 1,000 ML IVC ONE ×2 (09:11→10:10)
[2017-08-25] MEDS ORDERED: Ondansetron 4 MG/2 ML VIAL IVP PRN (09:14)
[2017-08-25] MEDS ORDERED: Calcium Gluconate 1,000 MG in D5% in Water 100 ML IVPB ONE (09:14)
[2017-08-25] MEDS ORDERED: D5% in 0.9% NACL 1,000 ML IVC SCH (09:15)
[2017-08-25] MEDS ORDERED: Pantoprazole 40 MG VIAL IVP ONE (09:23)
[2017-08-25 09:26] LABS: Anisocytosis 1+ (Not Present); Hypochromasia Present (Not Present); Platelet Estimate Normal (Normal)
[2017-08-25] MEDS ORDERED: *HR* Promethazine 25 MG/ML VIAL IVP PRN (09:48)
[2017-08-25] MEDS: Piperacillin/Tazobactam 3.375 GM in D5% in Water (Mini-Bag+) 100 ML IVPB SCH ×2 (09:51→16:45)
[2017-08-25] MEDS ORDERED: Vancomycin 1,250 MG in D5% in Water 250 ML IVPB SCH (10:00)
[2017-08-25] MEDS ORDERED: *HR* Promethazine 25 MG/ML VIAL ONE (10:03)
[2017-08-25] MEDS ORDERED: *HR* Dextrose 50 % in Water (Syg) 50 ML SYRINGE ONE (10:09)
[2017-08-25] MEDS ORDERED: Vancomycin 1,250 MG in D5% in Water 250 ML IVPB ONE (11:00)
[2017-08-25] MEDS ORDERED: Aminoglycoside Consult 1 EACH MC ONE (11:15)
[2017-08-25] MEDS ORDERED: *HR* Morphine 2 MG/ML SYRINGE IVP ONE (11:18)
[2017-08-25] MEDS: Pantoprazole 40 MG in 0.9 % Sodium Chloride Mini Bag 100 ML IVC SCH ×2 (11:45→20:31)
[2017-08-25] MEDS: MetroNIDAZOLE 500 MG/100 ML 500 MG/100 ML BAG IVPB SCH ×2 (11:46→16:27)
[2017-08-25] MEDS ORDERED: 0.9 % Sodium Chloride 250 ML ONE (11:53)
[2017-08-25 11:57] LABS: Hemoglobin 6.2 g/dL (11.5-15.4); Platelet Count 126 K/mcL (140-400); Red Cell Distribution Width 18.6 % (11.5-14.5)
[2017-08-25 11:59] LABS: Hematocrit 23.7 % (35.3-44.9); Mean Corpuscular HGB Conc 26.2 g/dL (31.6-35.5); Mean Corpuscular Hemoglobin 22.3 pg (28.0-33.3); Mean Corpuscular Volume 85.3 fL (83.0-100.0); Mean Platelet Volume 11.6 fL (9.4-12.4); Red Blood Count 2.78 M/mcL (3.82-4.97)
--- NOTE | 2017-08-25 12:32 | Gastroenterology Consult Note ---
<BahenaOrtiz De Santiago - Last Filed: 08/25/17 12:23> Date of Encounter: 08/25/17 Time of Encounter: 12:05 - Assessment and plan (1) Anemia Current Visit: No Status: Chronic Assessment and plan: On admission Hgb 6.6 which is 2g lower than baseline. Continue to monitor CBC and transfuse PRBC as indicated. Plan for EGD once INR corrected to less than 1.5 to r/o esophagitis, gastritis, duodenitis, PUD, MW tear, or AVM. Qualifiers: Anemia type: iron deficiency Iron deficiency anemia type: unspecified iron deficiency Qualified Code(s): D50.9 - Iron deficiency anemia, unspecified (2) Elevated INR Current Visit: Yes Status: Acute Assessment and plan: INR on admission 4.7. INR will need to be corrected to 1.5 prior to EGD. Recommend Vitamin K/FFP. (3) Diarrhea Current Visit: Yes Status: Acute Assessment and plan: Check GI panel. Qualifiers: Diarrhea type: unspecified type Qualified Code(s): R19.7 - Diarrhea, unspecified (4) Elevated troponin Current Visit: Yes Status: Acute Assessment and plan: Troponin 0.25, could be secondary to demand ischemia. Management per primary team. (5) Liver metastasis Current Visit: No Status: Acute Assessment and plan: Noted on liver biopsy 05/28/2016. (6) Colon cancer Current Visit: No Status: Chronic Assessment and plan: Status post right ascending colectomy 12/03/2015. Qualifiers: Colon location: ascending Qualified Code(s): C18.2 - Malignant neoplasm of ascending colon - Time Spent With Patient Total time spent is greater than 50% in coordination of care (as documented) at patient's floor/unit and/or counseling patient: GI History of Present Illness - Data of Consult Patient: known to practice within the last 3 years Consult date: 08/25/17 Requesting Physician: Moo Wharton MD - Consult Narrative Reason for consult: GI bleed History of present illness: Ms. Da Silva is a 87 year old femalewith PMHx of Afib, CHF, CAD, CVA, GI bleed, HTN, [place], colon cancer s/p right ascending colectomy on 12/23/2015 with mets to liver (noted on liver biopsy 05/28/2016). She was transferred from [facility] for further evaluation of SOB. CT A/P with inflammatory stranding in the region of the pancreaticoduodenal groove and eugenia hepatis with suspected thickening of the gastric pylorus and the 1st and 2nd segments of the duodenum. Hgb on admission was 6.6 with INR of 4.7. She complained of chest pain and troponin elevated at 0.25. Protonix drip started. Patient mentioned that she is having watery diarrhea. Approximately 5 watery bowel movements daily. She also has abdominal discomfort across lower abdomen. She has been on antibiotics at the outside facility for pneumonia. Procedures: Colonoscopy 12/20/2015 Dr. Avery: Poor prep, two 15 mm tubular adenoma in sigmoid colon, two 8 mm hyperplastic polyps, poorly differentiated malignancy (partially obstructing tumor) at hepatic flexure, diverticulosis, internal hemorrhoid. NSAIDs: ASA Anticoagulation: Coumadin Past Med Surg Social Fam HX - Past Medical History Medical history: atrial fibrillation, CHF, coronary artery disease, CVA, GI bleed, hypertension, myocardial infarction Psychiatric history: anxiety - Past Surgical History Surgical History: non-contributory - Social History Smoking Status: Former smoker Smokeless Tobacco Status: No Alcohol use: none Drug use: none - Family History Mother History Unknown: Yes Age: 101 Family Member Ethnicity: Unknown Living Status: Cause of : heart attack Hx Family Cardiac Disorders: No Hx Family Respiratory Disorders: No Hx Family Cancer: Yes (colon) Hx Family GI Disorders: No Hx Family Endocrine Disorder: No Hx Family Neuromuscular Disorders: No Hx Family Neurologic Disorders: No Hx Family HEENT Disorders: No Hx Family Autoimmune Disorders: No - Gastrointestinal Gastrointestinal: Present: as per HPI - Constitutional Constitutional: as per HPI - EENT Eyes: as per HPI Ears: Present: as per HPI Nose, mouth and throat: Present: as per HPI - Cardiovascular Cardiovascular ROS: Present: as per HPI - Respiratory Respiratory IM: Present: as per HPI - Genitourinary Genitourinary: Absent: change in color, Urinary frequency - Neurological ROS Neurological GI: Present: as per HPI - Hematologic/Lymphatic Hematologic/Lymphatic pediatric: Present: as per HPI - Musculoskeletal Musculoskeletal ROS GI: Present: as per HPI - Integumentary Integumentary GI: Present: as per HPI - Psychiatric ROS Psychiatric GI: Present: as per HPI - Endocrine Endocrine IM: Present: as per HPI - Constitutional Vitals: Temp Pulse Resp BP Pulse Ox 96.8 F L 116 19 72/32 96 08/25/17 06:08 08/25/17 10:20 08/25/17 10:26 08/25/17 09:30 08/25/17 10:26 General appearance: Present: mild distress - Head Head exam: Present: atraumatic, normocephalic - Eye Eye exam: Present: normal appearance, sclera anicteric - ENT ENT exam: Present: mucous membranes dry - Neck Neck exam general surgery: Present: normal inspection, trachea midline - Respiratory Respiratory exam: Present: decreased breath sounds, CTAB Additional comments: BiPAP - Cardiovascular Cardiovascular exam: Present: RRR, +S1, +S2 - GI/Abdominal GI/Abdominal exam: Present: soft, tenderness (generalized), no peritoneal signs. Absent: distended, firm, guarding - Rectal Rectal exam: Present: deferred - Extremities Exam Extremities exam: Present: warm - Neurological Exam Neurological exam: Present: no focal deficits - Psychiatric Psychiatric exam: Present: normal affect, normal mood - Skin Skin exam: Present: dry, intact, normal color, warm Results - Labs CBC & Chem 7: 08/25/17 09:58 08/25/17 08:42 Labs: Last Result Calcium 7.6 mg/dL (8.6-10.8) L 08/25/17 08:42 Troponin I 0.25 ng/mL (0-0.03) H* 08/25/17 08:42 C-Reactive Protein 9 mg/L (Less than 5) H 08/25/17 08:42 Entire Visit Hgb 6.2 g/dL (11.5-15.4) L 08/25/17 09:58 Hct 23.7 % (35.3-44.9) L 08/25/17 09:58 PT 52.0 Seconds (9.4-12.1) H* 08/25/17 08:42 Total Bilirubin 1.2 mg/dL (0.2-1.2) 08/25/17 08:42 AST 34 Units/L (5-34) 08/25/17 08:42 ALT 33 Units/L (0-55) 08/25/17 08:42 - ABG ABG results: PT/INR, D-dimer PT 52.0 Seconds (9.4-12.1) H* 08/25/17 08:42 - Impressions Impressions Chest X-Ray 08/25/17 08:22 IMPRESSION: Atelectasis or infiltrate in the left lung base with a left pleural effusion. Follow up to resolution is suggested. D/ / 08/25/2017 09:17:50 Chanell Rivera MD / krissy Interpreting Provider: Chanell Rivera MD Abdomen/Pelvis CT 08/25/17 09:45 IMPRESSION: 1. Inflammatory stranding in the region of the pancreaticoduodenal groove and eugenia hepatis with suspected thickening of the gastric pylorus and the 1st and 2nd segments of the duodenum. Considerations include pancreatitis, duodenitis, cholangitis, or less likely gastritis. 2. Skeletal wall thickening and pericholecystic fluid, potentially due to cholecystitis or a systemic process such as hypoproteinemia, cardiovascular, renal failure. Consider further evaluation with sonography or a nuclear medicine hepatobiliary scan if there are clinical findings of cholecystitis. 3. New trace right and small left pleural effusions, trace to small ascites, and mild anasarca. 4. Abnormally thickened endometrium in association with a suspected focal lesion in the fundus, potentially endometrial hyperplasia, polyp, or carcinoma. Recommend gynecology evaluation with consideration for sonography. 5. 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 Recommend follow-up imaging in 1 year and vascular surgery consultation as below. RECOMMENDATIONS: Managing Abdominal Aortic Aneurysms 4.0-4.4 cm: Every 1 year. Recommend vascular consultation. J Vasc Surg. 2009 Jul;50(4 Suppl):S2-49 D/ / Ortiz Castellanos MD / Ortiz Castellanos MD Interpreting Provider: Ortiz Castellanos MD Consult Discharge Plan - Plan Referrals: Phyllis Parsons CNP [Primary Care Provider] - <BenniePillo - Last Filed: 08/25/17 16:40> Date of Encounter: 08/25/17 Time of Encounter: 15:00 - Time Spent With Patient Total time spent is greater than 50% in coordination of care (as documented) at patient's floor/unit and/or counseling patient: GI History of Present Illness - Data of Consult Requesting Physician: Moo Wharton MD - Consult Narrative History of present illness: Ms. Da Silva is a 87 year old female - Constitutional Vitals: Temp Pulse Resp BP Pulse Ox 97.5 F L 116 12 116/92 85 08/25/17 15:43 08/25/17 16:00 08/25/17 16:00 08/25/17 16:00 08/25/17 16:00 Results - Labs CBC & Chem 7: 08/25/17 09:58 08/25/17 08:42 Labs: Last Result Calcium 7.6 mg/dL (8.6-10.8) L 08/25/17 08:42 Troponin I 0.25 ng/mL (0-0.03) H* 08/25/17 08:42 C-Reactive Protein 9 mg/L (Less than 5) H 08/25/17 08:42 Entire Visit Hgb 6.2 g/dL (11.5-15.4) L 08/25/17 09:58 Hct 23.7 % (35.3-44.9) L 08/25/17 09:58 PT 52.0 Seconds (9.4-12.1) H* 08/25/17 08:42 Total Bilirubin 1.2 mg/dL (0.2-1.2) 08/25/17 08:42 AST 34 Units/L (5-34) 08/25/17 08:42 ALT 33 Units/L (0-55) 08/25/17 08:42 Lipase 20 Units/L (8-78) 08/25/17 12:24 - ABG ABG results: PT/INR, D-dimer PT 52.0 Seconds (9.4-12.1) H* 08/25/17 08:42 - Impressions Impressions Chest X-Ray 08/25/17 08:22 IMPRESSION: Atelectasis or infiltrate in the left lung base with a left pleural effusion. Follow up to resolution is suggested. D/ / 08/25/2017 09:17:50 Chanell Rivera MD / [facility] Interpreting Provider: Chanell Rivera MD Abdomen/Pelvis CT 08/25/17 09:45 IMPRESSION: 1. Inflammatory stranding in the region of the pancreaticoduodenal groove and eugenia hepatis with suspected thickening of the gastric pylorus and the 1st and 2nd segments of the duodenum. Considerations include pancreatitis, duodenitis, cholangitis, or less likely gastritis. 2. Skeletal wall thickening and pericholecystic fluid, potentially due to cholecystitis or a systemic process such as hypoproteinemia, cardiovascular, renal failure. Consider further evaluation with sonography or a nuclear medicine hepatobiliary scan if there are clinical findings of cholecystitis. 3. New trace right and small left pleural effusions, trace to small ascites, and mild anasarca. 4. Abnormally thickened endometrium in association with a suspected focal lesion in the fundus, potentially endometrial hyperplasia, polyp, or carcinoma. Recommend gynecology evaluation with consideration for sonography. 5. 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 Recommend follow-up imaging in 1 year and vascular surgery consultation as below. RECOMMENDATIONS: Managing Abdominal Aortic Aneurysms 4.0-4.4 cm: Every 1 year. Recommend vascular consultation. J Vasc Surg. 2009 Jul;50(4 Suppl):S2-49 D/ / Ortiz Castellanos MD / Ortiz Castellanos MD Interpreting Provider: Ortiz Castellanos MD - Attending Attestation I examined this patient and my medical decision-making was reviewed with the Resident Physician. I agree with the documented findings, disposition and treatment plan as described except to the extent set forth below. Patient with anemia history of rectal bleeding. No bleeding since in the hospital. Patient also has elevated troponin and very high INR. At this point patient is not bleeding anymore. We will advise supportive care. If found to have any overt bleeding then we will advise scope otherwise no scope indicated
[2017-08-25] MEDS: *HR* Digoxin 0.5 MG/2 ML AMPUL IVP SCH ×2 (13:54→20:32)
--- NOTE | 2017-08-25 14:10 | Palliative - Consult Note ---
Date of Encounter: 08/25/17 Time of Encounter: 14:30 - Assessment and Plan (1) Anxiety Current Visit: No Status: Acute Assessment and plan: She takes Lorazepam 0.5 PRN at home - states she takes fairly regularly to help with anxiety. Will begin Lorazepam 0.25mg IV currently and monitor (2) Generalized pain Current Visit: Yes Status: Acute Assessment and plan: Avoid morphine r/t renal function. Begin low dose Hydromorphone at 0.25 IV every 4 hours and monitor. (3) Goals of care, counseling/discussion Current Visit: Yes Status: Acute Assessment and plan: Spoke with daughter Alexus at bedside. Patient is and has no DPOA in place. Patient's other daughter is trying to book flight from [place] tomorrow. States pt is alone and fairly independent - does receive home delivered meals , and has [facility] with visiting nurse and aide. States she uses walker at home. Has wheelchair if needed for appts, etc. She was supposed to see Willard welt insole channeler tomorrow for clearance to have procedure for liver lesion at [facility]. Daughter has already transitioned code status to DNR/DNI, and not in favor of central lines/pressors, however, desires to continue current supportive care with fluids/atb/transfusions. States her mother has "been through a lot" this past year, and she doesn't want her to suffer if it appears her condition is deteriorating. They have good spiritual support through crate icer at [facility]. If she stabilizes and responds to current treatment, daughter desires to transition home if possible, but understands she may be too weak and require rehab. If her condition worsens, she desires comfort care and would be open to hospice if needed to discuss. Will continue to follow. (4) Atrial fibrillation with rapid ventricular response Current Visit: No Status: Acute (5) HCAP (healthcare-associated pneumonia) Current Visit: Yes Status: Acute Assessment and plan: ICU managing with antibiotic therapy (6) Liver metastasis Current Visit: No Status: Acute (7) Anemia Current Visit: No Status: Chronic Assessment and plan: Currently being transfused. INR 4.7 on admission. GI has been consulted and will be following. Qualifiers: Anemia type: iron deficiency Iron deficiency anemia type: unspecified iron deficiency Qualified Code(s): D50.9 - Iron deficiency anemia, unspecified Palliative-CN HPI - Data of Consult Consult date: 08/25/17 Requesting Physician: Moo Wharton MD Primary Care Provider: Phyllis Parsons CNP - Consult Narrative History of present illness: Ms. Da Silva is a 87 year old female transferred from [facility] with anemia, diarrhea, atrial fibrillation, and hypotension. She origiinally presented to [facility] with complaints of shortness of breath, lower extremity edema, and diarrhea of approx 5 watery stools/day. She has history of colon cancer s/p colectomy, and was found to have liver metastasis that was followed by Dr. Dawson at [facility]. She was scheduled for cardiology clearance tomorrow for procedure at [facility] on liver lesion. Other medical history includes atrial fibrillation, CHF, CAD, CVA, GI bleed, [place]. SHe presented with Hgb of 6.6 and INR 4.7. Currently receiving blood transfusion and has received bolus IV fluids. Condition was fragile on arrival and daughter arrived from [place]. Discussion with ICU resident - daughter did not desire heroic measures and did not desire aggressive management with central line and pressors. OK with supportive care and transfusion. Upon my visit, pt is alert and oriented and can answer questions appropriately. Lives independently in apartment and states she has [facility] with visiting nurse. C/o some back and left sided pain, as well as intermittent abd pain, states previous pain medication was effective. , has 2 daughters, Alexus resides in [place], and other Daughter lives in [facility]. CC: Moo Wharton MD Past Med Surg Social Fam HX - Past Medical History Medical history: atrial fibrillation, CHF, coronary artery disease, CVA, GI bleed, hypertension, myocardial infarction Psychiatric history: anxiety - Past Surgical History Surgical History: non-contributory - Social History Smoking Status: Former smoker Smokeless Tobacco Status: No Alcohol use: none Drug use: none - Family History Mother History Unknown: Yes Age: 101 Family Member Ethnicity: Unknown Living Status: Cause of : heart attack Hx Family Cardiac Disorders: No Hx Family Respiratory Disorders: No Hx Family Cancer: Yes (colon) Hx Family GI Disorders: No Hx Family Endocrine Disorder: No Hx Family Neuromuscular Disorders: No Hx Family Neurologic Disorders: No Hx Family HEENT Disorders: No Hx Family Autoimmune Disorders: No Medications and Allergies LORazepam [Ativan] 0.5 mg PO TID PRN 08/07/16 [History] Aspirin [Lo-Dose Aspirin EC] 1 tab PO DAILY 08/11/16 [History] Acetaminophen [Tylenol] 500 mg PO TID PRN 05/19/17 [History] Cholecalciferol (D-3) [Vitamin D] 5,000 unit PO DAILY 05/19/17 [History] Levothyroxine [Synthroid] 100 mcg PO DAILY #30 05/20/17 [Rx] Oxycodone HCl [Oxaydo] 2.5 - 5 mg PO Q6H PRN #60 06/18/17 [Rx] Clopidogrel [Plavix] 75 mg PO DAILY 08/02/17 [History] Diltiazem CD (24hr) [Cardizem CD] 120 mg PO DAILY 08/02/17 [History] Furosemide [Lasix] 40 mg PO DAILY 08/02/17 [History] Warfarin [Coumadin] 2.5 mg PO SUWETHSA 08/02/17 [History] Metoprolol XL (24 HR) Succ [Toprol XL] 75 mg PO DAILY #90 tab.er.24h 08/04/17 [ Rx] Warfarin [Coumadin] 1.25 mg PO FR 08/25/17 [History] 3 Allergy/AdvReac Type Severity Reaction Status Date / Time tuberculin,PPD,multi-puncture Allergy Hypertensio Verified 04/22/17 13:20 n meperidine [From Demerol] AdvReac Vomiting Verified 04/22/17 13:20 IVP DYE Allergy Hives Uncoded 05/19/17 11:22 All systems: reviewed and no additional remarkable complaints except as stated ( weakness, shortness of breath, cough, left sided pain, anxiety) Palliative Care-Exam - Constitutional Vitals: Temp Pulse Resp BP Pulse Ox 98.0 F 123 12 102/72 88 08/25/17 12:37 08/25/17 13:00 08/25/17 13:00 08/25/17 13:00 08/25/17 13:00 General appearance: Present: mild distress - Head Head Exam: Present: normal inspection, normocephalic - Eye Eye exam: Present: normal appearance, PERRL - Respiratory Respiratory exam: Present: decreased breath sounds, CTAB - Cardiovascular Cardiovascular exam: Present: irregular rhythm, tachycardia - GI/Abdominal Exam GI/Abdominal exam: Present: normal bowel sounds, soft, tenderness - Catheter Type: Urethral ([place]) - Extremities Exam Additional comments: 1-2+ edema bilateral lower extremities - Neurological Exam Neurological exam: Present: alert, oriented X3, strengths equal and symetr throughout - Psychiatric Psychiatric exam: Present: anxious - Skin Skin exam: Present: dry, pallor, warm Internal Medicine - CN: Reslt - Labs CBC & Chem 7: 08/25/17 09:58 08/25/17 08:42 Labs: Short CBC 08/25/17 08/25/17 Range/Units 08:42 09:58 WBC 6.0 5.5 (4.3-11.1) K/mcL Hgb 6.6 L 6.2 L (11.5-15.4) g/dL Hct 24.8 L 23.7 L (35.3-44.9) % Plt Count 132 L 126 L (140-400) K/mcL Neutrophils # 4.9 (1.6-8.9) K/mcL BMP 08/25/17 08:42 Sodium 141 Potassium 5.2 H Chloride 112 H Carbon Dioxide 16 L BUN 49 H Creatinine 1.96 H Glucose 58 L Calcium 7.6 L Cardiac Enzymes 08/25/17 Range/Units 08:42 Troponin I 0.25 H* (0-0.03) ng/mL Liver Function 08/25/17 Range/Units 08:42 Total Bilirubin 1.2 (0.2-1.2) mg/dL AST 34 (5-34) Units/L ALT 33 (0-55) Units/L Alkaline Phosphatase 115 (38-126) Units/L Albumin 2.6 L (3.5-5.0) g/dL - ABG Interpretation ABG results: PT/INR, D-dimer PT 52.0 Seconds (9.4-12.1) H* 08/25/17 08:42 - Impressions Impressions Chest X-Ray 08/25/17 08:22 IMPRESSION: Atelectasis or infiltrate in the left lung base with a left pleural effusion. Follow up to resolution is suggested. D/ / 08/25/2017 09:17:50 Chanell Rivera MD / krissy Interpreting Provider: Chanell Rivera MD Abdomen/Pelvis CT 08/25/17 09:45 IMPRESSION: 1. Inflammatory stranding in the region of the pancreaticoduodenal groove and eugenia hepatis with suspected thickening of the gastric pylorus and the 1st and 2nd segments of the duodenum. Considerations include pancreatitis, duodenitis, cholangitis, or less likely gastritis. 2. Skeletal wall thickening and pericholecystic fluid, potentially due to cholecystitis or a systemic process such as hypoproteinemia, cardiovascular, renal failure. Consider further evaluation with sonography or a nuclear medicine hepatobiliary scan if there are clinical findings of cholecystitis. 3. New trace right and small left pleural effusions, trace to small ascites, and mild anasarca. 4. Abnormally thickened endometrium in association with a suspected focal lesion in the fundus, potentially endometrial hyperplasia, polyp, or carcinoma. Recommend gynecology evaluation with consideration for sonography. 5. 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 Recommend follow-up imaging in 1 year and vascular surgery consultation as below. RECOMMENDATIONS: Managing Abdominal Aortic Aneurysms 4.0-4.4 cm: Every 1 year. Recommend vascular consultation. J Vasc Surg. 2009 Oct;50(4 Suppl):S2-49 D/ / Ortiz Castellanos MD / Ortiz Castellanos MD Interpreting Provider: Ortiz Castellanos MD Consult Discharge Plan - Plan Referrals: Phyllis Parsons VIN[employer] CUTTER [Primary Care Provider] - Palliative Quality Palliative Quality: Screen for Code Status: Yes, Screen for Goals of Care: Yes, Screen for Pain: Yes, If Pain Regimen Started, Initiate Bowel Regimen: NA ( diarrhea), Screen for Nausea/Vomitting: Yes Code Status: 08/25/17 13:43 CODE [Resuscitation Status: Active] [RES] Routine Comment: Resuscitation Status: [id number]
--- NOTE | 2017-08-25 14:15 | Pulmonology Consult Note ---
<Ortiz Ferris - Last Filed: 08/25/17 14:47> Date of Encounter: 08/25/17 Time of Encounter: 14:12 Assessment and Plan (1) Duodenitis with hemorrhage Current Visit: Yes Status: Acute Patient presented with abdominal pain and diarrhea. Given her drop in hemoglobin and hypotension where concern for intra-abdominal process given her history of metastatic colon cancer. CT of the abdomen and pelvis was obtained that showed inflammation in the area of the pancreas and duodenum. Given that her lipase is normal, this likely represents duodenitis and given her supratherapeutic INR this is likely the source of her acute blood loss anemia. Patient has been placed on broad-spectrum antibiotics with vancomycin, Zosyn, Flagyl. PPI drip has been initiated. GI has been consulted for possible endoscopy. (2) Acute GI bleeding Current Visit: Yes Status: Acute Likely related to duodenitis as discussed above. Exacerbated by supratherapeutic INR. Likely the cause of the patient's hypotension and lactic acidosis. I do not feel that she is in septic shock. 2 units of packed red blood cells have been ordered (3) Elevated INR Current Visit: Yes Status: Acute Secondary to Coumadin use. INR 4.7 on presentation. Given that the patient has active bleed with hypotension she will be given 2 units of FFP and 2.5 mg of vitamin K subcutaneous. Recheck INR after FFP. (4) Diarrhea Current Visit: Yes Status: Acute Likely related to duodenitis complicated by acute hemorrhage as discussed above. As far as I can tell is been no recent antibiotic use and her white count is normal, low suspicion for C. difficile infection. GI panel pending Qualifiers: Diarrhea type: presumed infectious Qualified Code(s): A09 - Infectious gastroenteritis and colitis, unspecified (5) Acute respiratory failure with hypoxia Current Visit: No Status: Resolved Likely related to acute blood loss anemia. Patient responded well to supplemental oxygen and noninvasive positive pressure ventilation. We will continue with oxygen supplementation as needed to keep oxygen saturation above 90%. Patient's daughter has requested that the patient not be intubated given her chronic illness state and desire to not be on life support. (6) Atrial fibrillation with rapid ventricular response Current Visit: No Status: Acute Vision has known underlying atrial fibrillation. Heart rate is elevated, likely related to acute blood loss anemia. We will replace blood products as discussed above. We will load the patient with dig for better heart rate control. (7) Non-STEMI (non-ST elevated myocardial infarction) Current Visit: No Status: Resolved Likely related to demand ischemia in the setting of acute blood loss anemia and hypotension. Initial troponin was 0.25. No ischemic changes noted on EKG. We will trend troponins. If troponin continues to rise will will discuss with cardiology however given the patient's current clinical status as well as the family's wishes for minimal aggressive care patient likely not be a candidate for any intervention. Continue to monitor. (8) Acute kidney injury superimposed on chronic kidney disease Current Visit: No Status: Resolved Creatinine on presentation was 1.96, baseline appears to be around 1.3. Likely related to hypoperfusion in the setting of acute blood loss anemia and hypotension as discussed above. Patient has had minimal urine output since admission. We will cautiously fluid hydrate the patient as she has underlying diastolic heart failure. Continue to monitor urine output (9) Heart failure with preserved ejection fraction Current Visit: Yes Status: Acute Secondary to ischemic cardiomyopathy in the setting of CAD status post coronary artery bypass in the remote past. Patient was given approximately 2 L of fluid due to her hypotension in the setting of hypovolemia due to acute blood loss. We will hold off on further maintenance fluid. No evidence of fluid overload at this time. We will continue to monitor. (10) Colon cancer Current Visit: No Status: Chronic Patient was diagnosed with colon cancer in 2016 and underwent hemicolectomy. Earlier this year there is evidence of liver and lung metastasis. The daughter states that the patient was evaluated for possible resection of the liver metastasis however she was deemed to be a poor surgical candidate, therefore the plan is to attempt radioembolization with Y 90. Daughter is unsure if the patient will tolerate this procedure. Patient apparently has refused chemotherapy in the past. I discussed with the daughter possible treatment plans given her underlying cancer and discussed the role of palliative care. The patient is daughter states that she is interested in speaking with palliative care in pursuing a more comfort based approach. Qualifiers: Colon location: ascending Qualified Code(s): C18.2 - Malignant neoplasm of ascending colon (11) Coronary artery disease Current Visit: No Status: Chronic Status post CABG in the remote past. Patient has an elevation in troponin as discussed above but I doubt this is related to active coronary artery disease. Given the concern for acute blood loss anemia we will hold aspirin and Plavix at this time. No evidence of ischemic changes on EKG. Qualifiers: Coronary Disease-Associated Artery/Lesion type: [place] artery [place] vs. transplanted heart: [place] heart Associated angina: angina presence unspecified Qualified Code(s): I25.10 - Atherosclerotic heart disease of [place] coronary artery without angina pectoris (12) Goals of care, counseling/discussion Current Visit: Yes Status: Acute A long discussion with the daughter at the bedside regarding the patient's clinical condition. She feels that the patient would not want invasive measures and lites support mechanisms if she were to require it. She asked that the patient not be intubated and not have a central line placed. She wishes to make the patient a DNR CCA/DNI. At this point the patient's daughter appears to be more interested in a comfort-based approach. We will consult palliative care. History of Present Illness Consult date: 08/25/17 Requesting physician: Sotero Varghese Reason for consult: other (Hypotension) Chief complaint: Abdominal pain History of present illness: Patient is a 7-year-old female with history of metastatic colon cancer, atrial fibrillation who presents from outside hospital due to hypotension and concerns for pneumonia. In talking with the patient she is limited in her ability to give a history due to pain and anxiety. She reports significant abdominal, back pain. She states she has had diarrhea for several days. Otherwise the patient is unable to verbalize complaints. Past Med Surg Social Fam HX - Past Medical History Medical history: atrial fibrillation, CHF, coronary artery disease, CVA, GI bleed, hypertension, myocardial infarction Psychiatric history: anxiety - Past Surgical History Surgical History: non-contributory - Social History Smoking Status: Former smoker Smokeless Tobacco Status: No Alcohol use: none Drug use: none - Family History Mother History Unknown: Yes Age: 101 Family Member Ethnicity: Unknown Living Status: Cause of : heart attack Hx Family Cardiac Disorders: No Hx Family Respiratory Disorders: No Hx Family Cancer: Yes (colon) Hx Family GI Disorders: No Hx Family Endocrine Disorder: No Hx Family Neuromuscular Disorders: No Hx Family Neurologic Disorders: No Hx Family HEENT Disorders: No Hx Family Autoimmune Disorders: No Medications and Allergies LORazepam [Ativan] 0.5 mg PO TID PRN 08/07/16 [History] Aspirin [Lo-Dose Aspirin EC] 1 tab PO DAILY 08/11/16 [History] Acetaminophen [Tylenol] 500 mg PO TID PRN 05/19/17 [History] Cholecalciferol (D-3) [Vitamin D] 5,000 unit PO DAILY 05/19/17 [History] Levothyroxine [Synthroid] 100 mcg PO DAILY #30 05/20/17 [Rx] Oxycodone HCl [Oxaydo] 2.5 - 5 mg PO Q6H PRN #60 06/18/17 [Rx] Clopidogrel [Plavix] 75 mg PO DAILY 08/02/17 [History] Diltiazem CD (24hr) [Cardizem CD] 120 mg PO DAILY 08/02/17 [History] Furosemide [Lasix] 40 mg PO DAILY 08/02/17 [History] Warfarin [Coumadin] 2.5 mg PO SUWETHSA 08/02/17 [History] Metoprolol XL (24 HR) Succ [Toprol XL] 75 mg PO DAILY #90 tab.er.24h 08/04/17 [ Rx] Warfarin [Coumadin] 1.25 mg PO FR 08/25/17 [History] 3 Allergy/AdvReac Type Severity Reaction Status Date / Time tuberculin,PPD,multi-puncture Allergy Hypertensio Verified 04/22/17 13:20 n meperidine [From Demerol] AdvReac Vomiting Verified 04/22/17 13:20 IVP DYE Allergy Hives Uncoded 05/19/17 11:22 ROS unobtainable: due to mental status All Systems: A 10-system review of systems was performed and is negative for pertinent findings except as documented above in the HPI. Physical Examination Vital Signs: Vital Signs, Last 4 Hours Temp Pulse Resp BP Pulse Ox 08/25/17 13:00 123 12 102/72 88 08/25/17 12:37 98.0 F 122 12 104/89 08/25/17 12:34 97.4 F L 118 14 115/71 82 08/25/17 12:00 134 12 124/86 87 08/25/17 11:00 120 12 118/93 87 08/25/17 10:30 112 16 113/71 85 08/25/17 10:26 19 96 08/25/17 10:20 116 General appearance: agitated ENT: oropharynx dry, other (Patient has dried blood on her lips) Effort: mildly labored Auscultation: bilateral: diminished breath sounds Gastrointestinal: hypoactive bowel sounds, tender (Diffuse), non-distended Extremities: no cyanosis, no clubbing, edema unable to assess due to mental status Results - Laboratory Findings CBC and BMP: 08/25/17 09:58 08/25/17 08:42 PT/INR, D-dimer PT 52.0 Seconds (9.4-12.1) H* 08/25/17 08:42 Abnormal lab findings: Abnormal lab results RBC 2.78 M/mcL (3.82-4.97) L 08/25/17 09:58 Hgb 6.2 g/dL (11.5-15.4) L 08/25/17 09:58 Hct 23.7 % (35.3-44.9) L 08/25/17 09:58 MCH 22.3 pg (28.0-33.3) L 08/25/17 09:58 MCHC 26.2 g/dL (31.6-35.5) L 08/25/17 09:58 RDW 18.6 % (11.5-14.5) H 08/25/17 09:58 Plt Count 126 K/mcL (140-400) L 08/25/17 09:58 Nucleated RBCs/100 WBC 0.5 /100 WBC (0) H 08/25/17 08:42 Hypochromasia Present (Not Present) A 08/25/17 08:42 Anisocytosis 1+ (Not Present) A 08/25/17 08:42 PT 52.0 Seconds (9.4-12.1) H* 08/25/17 08:42 INR 4.7 H* 08/25/17 08:42 Potassium 5.2 mEq/L (3.5-4.5) H 08/25/17 08:42 Chloride 112 mEq/L (98-109) H 08/25/17 08:42 Carbon Dioxide 16 mEq/L (19-29) L 08/25/17 08:42 BUN 49 mg/dL (7-20) H 08/25/17 08:42 Creatinine 1.96 mg/dL (0.57-1.11) H 08/25/17 08:42 Est GFR ( Amer) 29 (> 60) L 08/25/17 08:42 Est GFR (Non-Af Amer) 24 (> 60) L 08/25/17 08:42 Glucose 58 mg/dL (70-99) L 08/25/17 08:42 Calculated Osmolality 303 (280-300) H 08/25/17 08:42 Lactic Acid 3.4 mmol/L (0.5-2.2) H 08/25/17 12:24 Calcium 7.6 mg/dL (8.6-10.8) L 08/25/17 08:42 Troponin I 0.25 ng/mL (0-0.03) H* 08/25/17 08:42 C-Reactive Protein 9 mg/L (Less than 5) H 08/25/17 08:42 B-Natriuretic Peptide 1760 pg/mL (0-100) H 08/25/17 08:42 Serum Total Protein 5.2 g/dL (6.0-8.3) L 08/25/17 08:42 Albumin 2.6 g/dL (3.5-5.0) L 08/25/17 08:42 Albumin/Globulin Ratio 1.0 (1.1-2.2) L 08/25/17 08:42 - Clinical Findings Intake & Output: Intake & Output 08/24/17 08/25/17 08/25/17 23:59 07:59 15:59 Intake Total 470 / 470 Balance 470 / 470 Weight 86 kg 86 kg Consult Discharge Plan - Plan Referrals: Phyllis Parsons, MANAGER OF [employer]EEP[employer] [Primary Care Provider] - <Elian Armas - Last Filed: 08/25/17 22:50> Date of Encounter: 08/25/17 All Systems: A 10-system review of systems was performed and is negative for pertinent findings except as documented above in the HPI. Physical Examination Vital Signs: Vital Signs, Last 4 Hours Temp Pulse Resp BP Pulse Ox 08/25/17 22:06 98.1 F 120 22 130/79 90 08/25/17 22:00 120 20 130/79 90 08/25/17 21:51 98 F 122 16 138/94 90 08/25/17 21:00 122 22 111/81 92 08/25/17 20:00 98 F 99 16 100/57 92 08/25/17 19:53 94 08/25/17 19:00 113 18 99/81 91 Results - Laboratory Findings CBC and BMP: 08/25/17 17:44 08/25/17 08:42 PT/INR, D-dimer PT 30.0 Seconds (9.4-12.1) H 08/25/17 17:44 Abnormal lab findings: Abnormal lab results RBC 3.67 M/mcL (3.82-4.97) L 08/25/17 17:44 Hgb 8.6 g/dL (11.5-15.4) L D 08/25/17 17:44 Hct 29.6 % (35.3-44.9) L 08/25/17 17:44 MCV 80.7 fL (83.0-100.0) L 08/25/17 17:44 MCH 23.4 pg (28.0-33.3) L 08/25/17 17:44 MCHC 29.1 g/dL (31.6-35.5) L 08/25/17 17:44 RDW 16.9 % (11.5-14.5) H 08/25/17 17:44 Plt Count 125 K/mcL (140-400) L 08/25/17 17:44 Nucleated RBCs/100 WBC 1.3 /100 WBC (0) H 08/25/17 17:44 Platelet Estimate Slight Decrease (Normal) L 08/25/17 17:44 Hypochromasia Present (Not Present) A 08/25/17 17:44 Poikilocytosis 1+ (Not Present) A 08/25/17 17:44 Anisocytosis 1+ (Not Present) A 08/25/17 17:44 PT 30.0 Seconds (9.4-12.1) H 08/25/17 17:44 Potassium 5.2 mEq/L (3.5-4.5) H 08/25/17 08:42 Chloride 112 mEq/L (98-109) H 08/25/17 08:42 Carbon Dioxide 16 mEq/L (19-29) L 08/25/17 08:42 BUN 49 mg/dL (7-20) H 08/25/17 08:42 Creatinine 1.96 mg/dL (0.57-1.11) H 08/25/17 08:42 Est GFR ( Amer) 29 (> 60) L 08/25/17 08:42 Est GFR (Non-Af Amer) 24 (> 60) L 08/25/17 08:42 Glucose 58 mg/dL (70-99) L 08/25/17 08:42 POC Glucose 129 (58-89) H 08/25/17 15:36 Calculated Osmolality 303 (280-300) H 08/25/17 08:42 Lactic Acid 3.4 mmol/L (0.5-2.2) H 08/25/17 12:24 Calcium 7.6 mg/dL (8.6-10.8) L 08/25/17 08:42 Troponin I 1.50 ng/mL (0-0.03) H* 08/25/17 17:44 C-Reactive Protein 9 mg/L (Less than 5) H 08/25/17 08:42 B-Natriuretic Peptide 1760 pg/mL (0-100) H 08/25/17 08:42 Serum Total Protein 5.2 g/dL (6.0-8.3) L 08/25/17 08:42 Albumin 2.6 g/dL (3.5-5.0) L 08/25/17 08:42 Albumin/Globulin Ratio 1.0 (1.1-2.2) L 08/25/17 08:42 - Clinical Findings Intake & Output: Intake & Output 08/25/17 08/25/17 08/25/17 07:59 15:59 23:59 Intake Total 1548.2 / 1548.2 730.8 / 730.8 Output Total 125 / 125 400 / 400 Balance 1423.2 / 1423.2 330.8 / 330.8 Weight 86 kg 86 kg - Attending Attestation I saw the patient with the resident agree with History and Physical exam findings. Labs and Radiology were reviewed- Ventilator data were reviewed Patient was on BIPAP with 6 pressure support didnt tolerate was put on oxymask [employer]NAGER [employer]: Patient is alert following commands A x2 but not capable of participating in medical decision making , patient becomes anxious when we start to do even minor procedures NECK : No JVD appreciated Pulmonary : hypoxic respiratory failure probably due to diastolic dysfunction complicated with atrial fibrillation with RVR . Start to load on digoxin for the treatment of A fib with RVR Cardiac : Patient was hypotensive probably due to volume depletion responded to volume will trend troponins , Last ECHO showed diastolic dysfunction Nutrition/GI: Patient is NPO with PPI since patient has duodenitis , has cholecystitis wont pursue active aggressive work up.Patient has previous diagnosis of metastatic colon Ca had radiotherapy .to Renal : Labs and output reviewed Chronic Kidney disease Heme onc : Acute blood loss anemia imost likely lower GI bleed to transfused Hb < 7 to transfuse FFP till the INR below 2.0 . No bleeding clinically ID : Imaging possible pneumonia to continue broad spectrum antibiotics to cover intrabdominal sepsis to repeat lactate . Musculo skeletal / skin issues : No acute issues Disposition : Critical Code status: Full Code Family/POA: Daughter had a detailed discussion Daughter according to patient wishes wont pursue invasive procedures like central line and endotracheal intubation. Spent 32 minutes of Critical care involved in medical decision making to prevent and support vital organ function
[2017-08-25] MEDS ORDERED: *HR* LORazepam 2 MG/ML VIAL IVP PRN (14:29)
--- NOTE | 2017-08-25 14:37 | Event Note ---
Date of Encounter: 08/25/17 Time of Encounter: 11:30 Spoke with Patient Daughter , according to Mom wishes she and her sister agrees not to pursue with aggressive measures putting a central line , endo-tracheal intubation she is ok in pursuing current resuscitation measures volume repletion and blood transfusion for acute blood loss anemia and correction of coagulopathy if she turns around with this otherwise if she deteriorates she will be made comfortable.
[2017-08-25] MEDS ORDERED: *HR* Phytonadione 10 MG/ML AMPUL SQ ONE (14:57)
[2017-08-25] MEDS: *HR* HYDROmorphone (PF) 1 MG/ML SYRINGE IVP PRN (16:22)
[2017-08-25] MEDS ORDERED: Petrolatum, White OINT.PACK TP PRN (16:36)
[2017-08-25] MEDS ORDERED: Furosemide 20 MG/2 ML VIAL IVP ONE (17:14)
[2017-08-25 18:07] LABS: Eosinophils % 0.6 %; Immature Granulocytes % 0.4 % (0-4); Mean Platelet Volume 10.5 fL (9.4-12.4); Red Cell Distribution Width 16.9 % (11.5-14.5)
[2017-08-25 18:09] LABS: Basophils % 0.2 %; Hematocrit 29.6 % (35.3-44.9); Lymphocytes # 0.6 K/mcL (0.6-4.6); Lymphocytes % 11.7 %; Mean Corpuscular HGB Conc 29.1 g/dL (31.6-35.5); Mean Corpuscular Hemoglobin 23.4 pg (28.0-33.3); Mean Corpuscular Volume 80.7 fL (83.0-100.0); Monocytes # 0.5 K/mcL (0.0-1.3); Monocytes % 9.7 %; Neutrophils # 4.2 K/mcL (1.6-8.9); Nucleated Red Blood Cells 1.3 /100 WBC (0); Platelet Count 125 K/mcL (140-400); Red Blood Count 3.67 M/mcL (3.82-4.97); Segmented Neutrophils % 77.4 %
[2017-08-25 18:11] LABS: Hemoglobin 8.6 g/dL (11.5-15.4)
[2017-08-25 18:12] LABS: INR 2.7
[2017-08-25 18:35] LABS: Hypochromasia Present (Not Present)
[2017-08-25 18:36] LABS: Anisocytosis 1+ (Not Present)
[2017-08-25 18:37] LABS: Platelet Estimate Slight Decrease (Normal)
[2017-08-25 18:38] LABS: Poikilocytosis 1+ (Not Present)
[2017-08-25] MEDS ORDERED: Chloraseptic Spray 177 ML BOTTLE MM PRN (22:55)
[2017-08-26] MEDS: MetroNIDAZOLE 500 MG/100 ML 500 MG/100 ML BAG IVPB SCH ×4 (00:27→23:31)
[2017-08-26] MEDS: Piperacillin/Tazobactam 3.375 GM in D5% in Water (Mini-Bag+) 100 ML IVPB SCH ×3 (00:27→17:49)
[2017-08-26] MEDS: Pantoprazole 40 MG in 0.9 % Sodium Chloride Mini Bag 100 ML IVC SCH ×3 (01:32→19:36)
[2017-08-26 05:17] LABS: Prothrombin Time 21.4 Seconds (9.4-12.1)
[2017-08-26 05:21] LABS: Basophils % 0.4 %; Eosinophils # 0.1 K/mcL (0.0-0.6); Eosinophils % 1.9 %; Hematocrit 31.7 % (35.3-44.9); Hemoglobin 9.3 g/dL (11.5-15.4); Immature Granulocytes % 0.6 % (0-4); Lymphocytes # 0.5 K/mcL (0.6-4.6); Lymphocytes % 10.2 %; Mean Corpuscular HGB Conc 29.3 g/dL (31.6-35.5); Mean Corpuscular Hemoglobin 23.6 pg (28.0-33.3); Mean Corpuscular Volume 80.5 fL (83.0-100.0); Mean Platelet Volume 10.6 fL (9.4-12.4); Monocytes # 0.4 K/mcL (0.0-1.3); Monocytes % 8.3 %; Neutrophils # 4.1 K/mcL (1.6-8.9); Nucleated Red Blood Cells 0.6 /100 WBC (0); Platelet Count 126 K/mcL (140-400); Red Blood Count 3.94 M/mcL (3.82-4.97); Red Cell Distribution Width 17.2 % (11.5-14.5); Segmented Neutrophils % 78.6 %
[2017-08-26 05:33] LABS: Magnesium 2.1 mg/dL (1.6-2.6); Potassium 4.4 mEq/L (3.5-4.5)
[2017-08-26 05:36] LABS: Calcium 9.2 mg/dL (8.6-10.8)
[2017-08-26] MEDS: *HR* HYDROmorphone (PF) 1 MG/ML SYRINGE IVP PRN ×4 (05:41→23:30)
--- NOTE | 2017-08-26 08:29 | Pulmonology Progress Note ---
<MirgiovanniLaci elmore W - Last Filed: 08/26/17 10:50> Date of Encounter: 08/26/17 Objective PUL Vital signs: Last Vital Signs Temp 97.4 F L 08/26/17 07:38 Pulse 77 08/26/17 10:00 Resp 16 08/26/17 10:00 BP 99/54 08/26/17 10:00 Pulse Ox 97 08/26/17 10:00 Results - Laboratory Findings CBC and BMP: 08/26/17 05:02 08/26/17 05:02 PT/INR, D-dimer PT 21.4 Seconds (9.4-12.1) H 08/26/17 05:02 Abnormal lab findings: Abnormal lab results Hgb 9.3 g/dL (11.5-15.4) L 08/26/17 05:02 Hct 31.7 % (35.3-44.9) L 08/26/17 05:02 MCV 80.5 fL (83.0-100.0) L 08/26/17 05:02 MCH 23.6 pg (28.0-33.3) L 08/26/17 05:02 MCHC 29.3 g/dL (31.6-35.5) L 08/26/17 05:02 RDW 17.2 % (11.5-14.5) H 08/26/17 05:02 Plt Count 126 K/mcL (140-400) L 08/26/17 05:02 Lymphocytes # 0.5 K/mcL (0.6-4.6) L 08/26/17 05:02 Nucleated RBCs/100 WBC 0.6 /100 WBC (0) H 08/26/17 05:02 Platelet Estimate Slight Decrease (Normal) L 08/25/17 17:44 Hypochromasia Present (Not Present) A 08/25/17 17:44 Poikilocytosis 1+ (Not Present) A 08/25/17 17:44 Anisocytosis 1+ (Not Present) A 08/25/17 17:44 PT 21.4 Seconds (9.4-12.1) H 08/26/17 05:02 BUN 53 mg/dL (7-20) H 08/26/17 05:02 Creatinine 2.21 mg/dL (0.57-1.11) H 08/26/17 05:02 Est GFR ( Amer) 25 (> 60) L 08/26/17 05:02 Est GFR (Non-Af Amer) 21 (> 60) L 08/26/17 05:02 Glucose 102 mg/dL (70-99) H 08/26/17 05:02 POC Glucose 106 (58-89) H 08/26/17 00:01 Calculated Osmolality 309 (280-300) H 08/26/17 05:02 Troponin I 1.60 ng/mL (0-0.03) H* 08/26/17 05:02 C-Reactive Protein 9 mg/L (Less than 5) H 08/25/17 08:42 B-Natriuretic Peptide 1760 pg/mL (0-100) H 08/25/17 08:42 Serum Total Protein 5.2 g/dL (6.0-8.3) L 08/25/17 08:42 Albumin 2.6 g/dL (3.5-5.0) L 08/25/17 08:42 Albumin/Globulin Ratio 1.0 (1.1-2.2) L 08/25/17 08:42 - Clinical Findings Intake & Output: Intake & Output 08/25/17 08/26/17 08/26/17 23:59 07:59 15:59 Intake Total 930.8 / 930.8 1034 / 1034 240 / 240 Output Total 400 / 400 925 / 925 Balance 530.8 / 530.8 109 / 109 240 / 240 Consult Discharge Plan - Plan Referrals: Phyllis Parsons, SIGN BUILDER SUPERVISOR [Primary Care Provider] - - Attending Attestation I examined this patient and my medical decision-making was reviewed with the Resident Physician. I agree with the documented findings, disposition and treatment plan as described except to the extent set forth below. We independently had [id number] contact with the patient Patient seen and examined at bedside Labs, radiology, chart personally reviewed. Management was reviewed during multidisciplinary critical care rounds. Neuropsych: Awake and alert following commands continue focus on sleep-wake cycle worship and avoiding sensory deprivation Pulm: Adequate oxygenation on room air continue to follow Cards: Hypotension has resolved patient has an STEMI echocardiogram pending suspect this is related to demand ischemia from anemia and hypotension consider cardiology consult based upon results she is not a candidate for anticoagulation because of recent life-threatening gastrointestinal hemorrhage FEN-GI: Advance diet as tolerated continue antimicrobials for duodenitis gastroenterology following no further episodes of gastrointestinal hemorrhage. Renal: Stable creatinine continue to monitor ID: Blood cultures and stool cultures pending continue Zosyn and Flagyl for concern of infectious duodenitis de-escalate the next 24 hours Heme/Onc: Mechanical DVT prophylaxis hemoglobin is stable after transfusion yesterday which is encouraging Endo: Glucose Monitored Integ/MSK: Skin Care per routine ICU Nursing Protocol to prevent ulcers. Lines: All lines examined without evidence of infection Dispo: She is stable for transfer to telemetry for ongoing care CODE: DNA are DNI palliative care has been consulted for ongoing goals of care in this patient with several complicated comorbid medical conditions and with advanced malignancy <Ortiz Ferris - Last Filed: 08/26/17 11:50> Date of Encounter: 08/26/17 Time of Encounter: 08:29 Assessment and Plan (1) Duodenitis with hemorrhage Current Visit: Yes Status: Acute Bleeding appears to have resolved. Patient's symptoms are much improved. Continue with Zosyn and Flagyl, discontinue vancomycin (2) Acute GI bleeding Current Visit: Yes Status: Acute Secondary to duodenitis as discussed above. Patient received 2 units of red blood cells and 4 units of plasma. Hemoglobin is responded appropriately and there is no evidence of continual active bleeding. Spoke with GI given the patient's goals of care and her not wishing for aggressive measures we will hold off on endoscopy at this time. (3) Elevated INR Current Visit: Yes Status: Acute Secondary to Coumadin toxicity. Patient received 4 units of FFP and 2.5 mg of vitamin K subcutaneously. INR is down to 2. owners no evidence of active bleeding. Continue monitor INR. (4) Diarrhea Current Visit: Yes Status: Acute None since admission. Likely related to duodenitis as discussed above. GI infectious panel has been ordered however she does not have bowel movement in 24 hours we will discontinue. Qualifiers: Diarrhea type: presumed infectious Qualified Code(s): A09 - Infectious gastroenteritis and colitis, unspecified (5) Acute respiratory failure with hypoxia Current Visit: No Status: Resolved Oxygenation is much improved, likely related to acute blood loss anemia as discussed above. Continue supplemental oxygen to keep her oxygen saturation above 90%. (6) Atrial fibrillation with rapid ventricular response Current Visit: No Status: Acute Heart rate much improved. Patient had 2 doses of digoxin yesterday. We will continue to monitor and treat her heart rate as necessary. (7) Non-STEMI (non-ST elevated myocardial infarction) Current Visit: No Status: Resolved Troponin has continued to increase and peaked at 1.6. Patient is chest pain- free and repeat EKG this morning shows no evidence of new ischemic changes. Echocardiogram is pending. Given the patient's goals of care it is unlikely that she wished to undergo left heart catheterization and evaluation for myocardial ischemia, however we will discuss this further with the patient and her daughter. (8) Acute kidney injury superimposed on chronic kidney disease Current Visit: No Status: Resolved Creatinine slightly worse today, likely related to hypotension and acute blood loss anemia as discussed above. Patient does have urine output but is not satisfactory at this time, but does appear to be improving. Continue monitor urine output and creatinine. (9) Heart failure with preserved ejection fraction Current Visit: Yes Status: Acute Stable. No evidence of acute fluid overload. Echo pending (10) Colon cancer Current Visit: No Status: Chronic Qualifiers: Colon location: ascending Qualified Code(s): C18.2 - Malignant neoplasm of ascending colon (11) Coronary artery disease Current Visit: No Status: Chronic Qualifiers: Coronary Disease-Associated Artery/Lesion type: [place] artery [place] vs. transplanted heart: [place] heart Associated angina: angina presence unspecified Qualified Code(s): I25.10 - Atherosclerotic heart disease of [place] coronary artery without angina pectoris (12) Goals of care, counseling/discussion Current Visit: Yes Status: Acute Discussed with daughter yesterday that the patient would not want aggressive measures including central line placement and observation. The patient is more alert today and in less distress so when the daughter arrives I will discuss plan of care and goals of care with the patient and her daughter. Subjective Principal diagnosis: GI bleed Interval history: Patient seen and examined at bedside. She states that she feels much better today. States her abdominal pain is resolved. She is tolerating a diet well. She denies chest pain, shortness of breath, fever, chills, nausea, vomiting, diarrhea. Objective PUL Vital signs: Last Vital Signs Temp 97.4 F L 08/26/17 07:38 Pulse 74 08/26/17 08:00 Resp 16 08/26/17 08:00 BP 131/83 08/26/17 08:00 Pulse Ox 98 08/26/17 08:00 General appearance: no acute distress ENT: oropharynx moist Effort: normal Auscultation: bilateral: diminished breath sounds Cardiovascular: irregular rhythm (Rate controlled) Gastrointestinal: normoactive bowel sounds, soft, non-tender, non-distended Extremities: no cyanosis, no clubbing, edema (1+ bilaterally) normal mental status, non-focal exam Results - Laboratory Findings CBC and BMP: 08/26/17 05:02 08/26/17 05:02 PT/INR, D-dimer PT 21.4 Seconds (9.4-12.1) H 08/26/17 05:02 Abnormal lab findings: Abnormal lab results Hgb 9.3 g/dL (11.5-15.4) L 08/26/17 05:02 Hct 31.7 % (35.3-44.9) L 08/26/17 05:02 MCV 80.5 fL (83.0-100.0) L 08/26/17 05:02 MCH 23.6 pg (28.0-33.3) L 08/26/17 05:02 MCHC 29.3 g/dL (31.6-35.5) L 08/26/17 05:02 RDW 17.2 % (11.5-14.5) H 08/26/17 05:02 Plt Count 126 K/mcL (140-400) L 08/26/17 05:02 Lymphocytes # 0.5 K/mcL (0.6-4.6) L 08/26/17 05:02 Nucleated RBCs/100 WBC 0.6 /100 WBC (0) H 08/26/17 05:02 Platelet Estimate Slight Decrease (Normal) L 08/25/17 17:44 Hypochromasia Present (Not Present) A 08/25/17 17:44 Poikilocytosis 1+ (Not Present) A 08/25/17 17:44 Anisocytosis 1+ (Not Present) A 08/25/17 17:44 PT 21.4 Seconds (9.4-12.1) H 08/26/17 05:02 BUN 53 mg/dL (7-20) H 08/26/17 05:02 Creatinine 2.21 mg/dL (0.57-1.11) H 08/26/17 05:02 Est GFR ( Amer) 25 (> 60) L 08/26/17 05:02 Est GFR (Non-Af Amer) 21 (> 60) L 08/26/17 05:02 Glucose 102 mg/dL (70-99) H 08/26/17 05:02 POC Glucose 106 (58-89) H 08/26/17 00:01 Calculated Osmolality 309 (280-300) H 08/26/17 05:02 Troponin I 1.60 ng/mL (0-0.03) H* 08/26/17 05:02 C-Reactive Protein 9 mg/L (Less than 5) H 08/25/17 08:42 B-Natriuretic Peptide 1760 pg/mL (0-100) H 08/25/17 08:42 Serum Total Protein 5.2 g/dL (6.0-8.3) L 08/25/17 08:42 Albumin 2.6 g/dL (3.5-5.0) L 08/25/17 08:42 Albumin/Globulin Ratio 1.0 (1.1-2.2) L 08/25/17 08:42 - Clinical Findings Intake & Output: Intake & Output 08/25/17 08/26/17 08/26/17 23:59 07:59 15:59 Intake Total 930.8 / 930.8 1034 / 1034 Output Total 400 / 400 925 / 925 Balance 530.8 / 530.8 109 / 109
[2017-08-26] MEDS ORDERED: Vancomycin 1 EACH in EMPTY BAG 1 EACH IVPB SCH (09:00)
--- NOTE | 2017-08-26 09:56 | Electrocardiograph Report ---
[address] [place] [address] Test Date: 2017-08-26 Pat Name: Kamila Da Silva Department: 109 Room: [facility] Gender: F Diesel Service Apprentice: LAURI : 1930 Requested By: Ortiz Ferris Order Number: [id number] Reading MD: Nathaly Mckeon Measurements Intervals [place] Rate: 84 P: GA: 0 QRS: 89 QRSD: 105 T: 199 QT: 353 QTc: 394 Interpretive Statements ATRIAL FIBRILLATION WITH ABERRANT CONDUCTION OR VENTRICULAR PREMATURE COMPLEXES INCOMPLETE RIGHT BUNDLE BRANCH BLOCK SEPTAL MYOCARDIAL INFARCTION, PROBABLY OLD MODERATE T-WAVE ABNORMALITY, CONSIDER LATERAL ISCHEMIA Electronically Signed On 08-26-2017 9:55:10 EDT by Nathaly Mckeon
[2017-08-26] MEDS: Pantoprazole 80 MG in 0.9 % Sodium Chloride 250 ML IVC SCH ×2 (12:12→22:55)
--- NOTE | 2017-08-26 15:16 | Palliative Progress Note ---
Date of Encounter: 08/26/17 Time of Encounter: 14:00 - Assessment and plan (1) Anxiety Current Visit: No Status: Acute Assessment and plan: Taking po well and tolerating po medications. She takes Lorazepam 0.5 bid at home, and has not had any since she has been admitted here, although 0.25 has been ordered. Will change IV to po home dose and monitor. She does appear very anxious today. (2) Generalized pain Current Visit: Yes Status: Acute Assessment and plan: Continue low dose Hydromorphone - utilized x3 last 24 hours. (3) Goals of care, counseling/discussion Current Visit: Yes Status: Acute Assessment and plan: Daughter has not arrived yet - but plans on being here this afternoon. I informed her via telephone, that ICU diesel dinkey operator desire to speak with her on arrival. (4) Atrial fibrillation with rapid ventricular response Current Visit: No Status: Acute (5) HCAP (healthcare-associated pneumonia) Current Visit: Yes Status: Acute (6) Liver metastasis Current Visit: No Status: Acute (7) Anemia Current Visit: No Status: Chronic Qualifiers: Anemia type: iron deficiency Iron deficiency anemia type: unspecified iron deficiency Qualified Code(s): D50.9 - Iron deficiency anemia, unspecified - Time Spent With Patient Total time spent is greater than 50% in coordination of care (as documented) at patient's floor/unit and/or counseling patient: 25 - 35 minutes - Subjective Interval history: Patient awake and oriented to person and place, but inappropriate statements at times. Yelling out occasionally. No family present. Assisted up to side of bed to eat her lunch. - Constitutional Vitals: Abnormal lab results Hgb 9.3 g/dL (11.5-15.4) L 08/26/17 05:02 Hct 31.7 % (35.3-44.9) L 08/26/17 05:02 MCV 80.5 fL (83.0-100.0) L 08/26/17 05:02 MCH 23.6 pg (28.0-33.3) L 08/26/17 05:02 MCHC 29.3 g/dL (31.6-35.5) L 08/26/17 05:02 RDW 17.2 % (11.5-14.5) H 08/26/17 05:02 Plt Count 126 K/mcL (140-400) L 08/26/17 05:02 Lymphocytes # 0.5 K/mcL (0.6-4.6) L 08/26/17 05:02 Nucleated RBCs/100 WBC 0.6 /100 WBC (0) H 08/26/17 05:02 Platelet Estimate Slight Decrease (Normal) L 08/25/17 17:44 Hypochromasia Present (Not Present) A 08/25/17 17:44 Poikilocytosis 1+ (Not Present) A 08/25/17 17:44 Anisocytosis 1+ (Not Present) A 08/25/17 17:44 PT 21.4 Seconds (9.4-12.1) H 08/26/17 05:02 BUN 53 mg/dL (7-20) H 08/26/17 05:02 Creatinine 2.21 mg/dL (0.57-1.11) H 08/26/17 05:02 Est GFR ( Amer) 25 (> 60) L 08/26/17 05:02 Est GFR (Non-Af Amer) 21 (> 60) L 08/26/17 05:02 Glucose 102 mg/dL (70-99) H 08/26/17 05:02 POC Glucose 125 (58-89) H 08/26/17 11:26 Calculated Osmolality 309 (280-300) H 08/26/17 05:02 Troponin I 1.60 ng/mL (0-0.03) H* 08/26/17 05:02 C-Reactive Protein 9 mg/L (Less than 5) H 08/25/17 08:42 B-Natriuretic Peptide 1760 pg/mL (0-100) H 08/25/17 08:42 Serum Total Protein 5.2 g/dL (6.0-8.3) L 08/25/17 08:42 Albumin 2.6 g/dL (3.5-5.0) L 08/25/17 08:42 Albumin/Globulin Ratio 1.0 (1.1-2.2) L 08/25/17 08:42 General appearance: Present: mild distress - Respiratory Respiratory exam: Present: decreased breath sounds, CTAB - Cardiovascular Cardiovascular exam: Present: irregular rhythm - GI/Abdominal GI/Abdominal exam: Present: normal bowel sounds, soft - Additional comments: [place] with clear yellow urine - Extremities Exam Extremities exam: Present: normal capillary refill, normal inspection - Neurological Exam Neurological exam: Present: alert, strengths equal and symetr throughout - Skin Skin exam: Present: dry, pallor, warm Palliative Quality Palliative Quality: Screen for Code Status: Yes, Screen for Goals of Care: Yes, Screen for Pain: Yes, If Pain Regimen Started, Initiate Bowel Regimen: NA ( diarrhea), Screen for Nausea/Vomitting: Yes Code Status: 08/25/17 13:43 CODE [Resuscitation Status: Active] [RES] Routine Comment: Resuscitation Status: [id number] - Labs CBC & Chem 7: 08/26/17 05:02 08/26/17 05:02 Labs: Laboratory Results - last 24 hr 08/25/17 08/25/17 08/25/17 09:58 15:36 17:44 WBC RBC Hgb Hct MCV MCH MCHC RDW Plt Count MPV Immature Gran % Seg Neutrophils % Lymphocytes % Monocytes % Eosinophils % Basophils % Neutrophils # Lymphocytes # Monocytes # Eosinophils # Basophils # Nucleated RBCs/100 WBC Platelet Estimate Hypochromasia Poikilocytosis Anisocytosis PT INR Sodium Potassium Chloride Carbon Dioxide BUN Creatinine Est GFR ( Amer) Est GFR (Non-Af Amer) BUN/Creatinine Ratio Glucose POC Glucose 129 H Calculated Osmolality Lactic Acid Calcium Magnesium Troponin I 1.50 H* Vancomycin Trough Blood Type O NEGATIVE Antibody Screen NEGATIVE Crossmatch See Detail 08/25/17 08/25/17 08/26/17 17:44 17:44 00:01 WBC 5.4 RBC 3.67 L Hgb 8.6 L D Hct 29.6 L MCV 80.7 L MCH 23.4 L MCHC 29.1 L RDW 16.9 H Plt Count 125 L MPV 10.5 Immature Gran % 0.4 Seg Neutrophils % 77.4 Lymphocytes % 11.7 Monocytes % 9.7 Eosinophils % 0.6 Basophils % 0.2 Neutrophils # 4.2 Lymphocytes # 0.6 Monocytes # 0.5 Eosinophils # 0.0 Basophils # 0.0 Nucleated RBCs/100 WBC 1.3 H Platelet Estimate Slight Decrease L Hypochromasia Present A Poikilocytosis 1+ A Anisocytosis 1+ A PT 30.0 H INR 2.7 Sodium Potassium Chloride Carbon Dioxide BUN Creatinine Est GFR ( Amer) Est GFR (Non-Af Amer) BUN/Creatinine Ratio Glucose POC Glucose 106 H Calculated Osmolality Lactic Acid Calcium Magnesium Troponin I Vancomycin Trough Blood Type Antibody Screen Crossmatch 08/26/17 08/26/17 08/26/17 05:02 05:02 05:02 WBC 5.2 RBC 3.94 Hgb 9.3 L Hct 31.7 L MCV 80.5 L MCH 23.6 L MCHC 29.3 L RDW 17.2 H Plt Count 126 L MPV 10.6 Immature Gran % 0.6 Seg Neutrophils % 78.6 Lymphocytes % 10.2 Monocytes % 8.3 Eosinophils % 1.9 Basophils % 0.4 Neutrophils # 4.1 Lymphocytes # 0.5 L Monocytes # 0.4 Eosinophils # 0.1 Basophils # 0.0 Nucleated RBCs/100 WBC 0.6 H Platelet Estimate Hypochromasia Poikilocytosis Anisocytosis PT 21.4 H INR 2.0 Sodium Potassium Chloride Carbon Dioxide BUN Creatinine Est GFR ( Amer) Est GFR (Non-Af Amer) BUN/Creatinine Ratio Glucose POC Glucose Calculated Osmolality Lactic Acid Calcium Magnesium Troponin I Vancomycin Trough 12.2 Blood Type Antibody Screen Crossmatch 08/26/17 08/26/17 08/26/17 05:02 05:02 05:02 WBC RBC Hgb Hct MCV MCH MCHC RDW Plt Count MPV Immature Gran % Seg Neutrophils % Lymphocytes % Monocytes % Eosinophils % Basophils % Neutrophils # Lymphocytes # Monocytes # Eosinophils # Basophils # Nucleated RBCs/100 WBC Platelet Estimate Hypochromasia Poikilocytosis Anisocytosis PT INR Sodium 142 Potassium 4.4 Chloride 107 Carbon Dioxide 24 BUN 53 H Creatinine 2.21 H Est GFR ( Amer) 25 L Est GFR (Non-Af Amer) 21 L BUN/Creatinine Ratio 24 Glucose 102 H POC Glucose Calculated Osmolality 309 H Lactic Acid 1.1 Calcium 9.2 D Magnesium 2.1 Troponin I 1.60 H* Vancomycin Trough Blood Type Antibody Screen Crossmatch 08/26/17 11:26 WBC RBC Hgb Hct MCV MCH MCHC RDW Plt Count MPV Immature Gran % Seg Neutrophils % Lymphocytes % Monocytes % Eosinophils % Basophils % Neutrophils # Lymphocytes # Monocytes # Eosinophils # Basophils # Nucleated RBCs/100 WBC Platelet Estimate Hypochromasia Poikilocytosis Anisocytosis PT INR Sodium Potassium Chloride Carbon Dioxide BUN Creatinine Est GFR ( Amer) Est GFR (Non-Af Amer) BUN/Creatinine Ratio Glucose POC Glucose 125 H Calculated Osmolality Lactic Acid Calcium Magnesium Troponin I Vancomycin Trough Blood Type Antibody Screen Crossmatch - Impressions Impressions Chest X-Ray 08/25/17 08:22 IMPRESSION: Atelectasis or infiltrate in the left lung base with a left pleural effusion. Follow up to resolution is suggested. D/ / 08/25/2017 09:17:50 Chanell Rivera MD / earnosofy Interpreting Provider: Chanell Rivera MD Echocardiogram 08/25/17 18:41 Impressions: LVEF 40%. Mild-moderate reduction in LV systolic function. Not all wall segments were well visualized. Atypical septal motion. Indeterminate diastolic function. RV is dilated with moderate-severe reduction in function. IVS is flat throughout the cardiac cycle suggesting RV pressure/volume overload. Severe bi-atrial enlargement. Moderate tricuspid regurgitation - may be underestimated. Mild pulmonic regurgitation. Moderate to severe pulmonary hypertension. Left Ventricular Wall Motion: Rest Echo Findings The apical lateral, mid anterior lateral, basal anterior lateral, mid inferior lateral and basal inferior lateral hogue were hypokinetic. The apical septal, mid inferior septal, basal inferior septal, mid anterior septal and basal anterior septal hogue were dyskinetic. The apex, apical inferior, mid inferior, basal inferior, apical anterior, mid anterior and basal anterior hogue were not visualized. Findings: Study Quality * Technically challenging due to clinical status - patient not cooperating. ECG Findings * Atrial fibrillation. Left Ventricle * Atypical septal motion. * Indeterminate diastolic function. * LVEF 40%. * Normal LV size. Right Ventricle * RV is dilated with moderate-severe reduction in function. Left Atrium * Severely dilated left atrium. Right Atrium * Severely dilated right atrium. Aortic Valve * No aortic regurgitation. * Off-axis imaging - probably trileaflet. * Mildly sclerotic aortic valve leaflets. * No aortic stenosis. Mitral Valve * Trace mitral regurgitation. * Mild-moderate mitral annular calcification * No mitral stenosis. Tricuspid Valve * Moderate tricuspid regurgitation - may be underestimated. * Poor leaflet coaptation. * Estimated RA pressure is 15 mmHg. * Estimated RVSP is 57 mmHg. * Moderate to severe pulmonary hypertension. Pulmonic Valve * Pulmonic valve not well visualized. * Mild pulmonic regurgitation. * No pulmonic stenosis. Pulmonary Artery * Pulmonary artery not well visualized. Aorta * Normally sized aortic root. Pericardium * There is no pericardial effusion present. Interatrial Septum * No evidence of PFO by color Doppler. IVC * The IVC is dilated. * < 50% respiratory change. - ABG Interpretation ABG results: PT/INR, D-dimer PT 21.4 Seconds (9.4-12.1) H 08/26/17 05:02 Consult Discharge Plan - Plan Referrals: Phyllis Parsons CNP [Primary Care Provider] -
[2017-08-26] MEDS: Nystatin SUSP 5 ML UD.LIQ PO SCH ×2 (15:47→20:01)
[2017-08-26] MEDS: *HR* LORazepam 0.5 MG TABLET PO PRN (15:54)
[2017-08-26] MEDS ORDERED: *HR* HYDROmorphone (PF) 1 MG/ML SYRINGE IVP ONE (17:28)
[2017-08-26 17:56] LABS: Hemoglobin 9.1 g/dL (11.5-15.4); Nucleated Red Blood Cells 0.5 /100 WBC (0); Red Cell Distribution Width 17.3 % (11.5-14.5)
[2017-08-26 17:57] LABS: Basophils % 0.3 %; Eosinophils # 0.1 K/mcL (0.0-0.6); Eosinophils % 2.1 %; Hematocrit 32.1 % (35.3-44.9); Immature Granulocytes % 0.9 % (0-4); Lymphocytes # 0.4 K/mcL (0.6-4.6); Lymphocytes % 6.7 %; Mean Corpuscular HGB Conc 28.3 g/dL (31.6-35.5); Mean Corpuscular Hemoglobin 23.5 pg (28.0-33.3); Mean Corpuscular Volume 82.7 fL (83.0-100.0); Mean Platelet Volume 10.4 fL (9.4-12.4); Monocytes # 0.4 K/mcL (0.0-1.3); Monocytes % 7.4 %; Platelet Count 137 K/mcL (140-400); Red Blood Count 3.88 M/mcL (3.82-4.97); Segmented Neutrophils % 82.6 %
[2017-08-26 18:02] LABS: INR 1.7; Prothrombin Time 18.8 Seconds (9.4-12.1)
[2017-08-26 18:03] LABS: Neutrophils # 4.9 K/mcL (1.6-8.9)
[2017-08-26 18:25] LABS: Anisocytosis 1+ (Not Present); Hypochromasia Present (Not Present)
[2017-08-26 18:27] LABS: Platelet Estimate Normal (Normal)
[2017-08-26] MEDS ORDERED: Pantoprazole 80 MG in 0.9 % Sodium Chloride 250 ML IVC SCH (23:00)
[2017-08-27] MEDS: *HR* LORazepam 0.5 MG TABLET PO PRN ×3 (00:12→21:15)
[2017-08-27 03:31] LABS: Basophils % 0.4 %; Immature Granulocytes % 0.6 % (0-4); Mean Corpuscular Hemoglobin 23.4 pg (28.0-33.3)
[2017-08-27 03:33] LABS: Eosinophils # 0.1 K/mcL (0.0-0.6); Eosinophils % 2.8 %; Hematocrit 32.2 % (35.3-44.9); Hemoglobin 9.1 g/dL (11.5-15.4); Lymphocytes # 0.7 K/mcL (0.6-4.6); Lymphocytes % 13.1 %; Mean Corpuscular HGB Conc 28.3 g/dL (31.6-35.5); Mean Corpuscular Volume 82.8 fL (83.0-100.0); Mean Platelet Volume 11.1 fL (9.4-12.4); Monocytes # 0.4 K/mcL (0.0-1.3); Monocytes % 8.5 %; Neutrophils # 3.7 K/mcL (1.6-8.9); Platelet Count 146 K/mcL (140-400); Red Blood Count 3.89 M/mcL (3.82-4.97); Red Cell Distribution Width 17.3 % (11.5-14.5); Segmented Neutrophils % 74.6 %
[2017-08-27 04:47] LABS: Calcium 8.6 mg/dL (8.6-10.8); Magnesium 1.9 mg/dL (1.6-2.6); Potassium 4.2 mEq/L (3.5-4.5)
[2017-08-27 05:41] LABS: Anisocytosis 1+ (Not Present); Hypochromasia Present (Not Present); Platelet Estimate Slight Decrease (Normal)
[2017-08-27] MEDS: Piperacillin/Tazobactam 3.375 GM in D5% in Water (Mini-Bag+) 100 ML IVPB SCH (06:18)
[2017-08-27 06:43] LABS: INR 1.6; Prothrombin Time 17.1 Seconds (9.4-12.1)
[2017-08-27] MEDS ORDERED: *HR* Promethazine 25 MG/ML VIAL IVP PRN (06:51)
[2017-08-27] MEDS ORDERED: Chloraseptic Spray 177 ML BOTTLE MM PRN ×2 (06:51→08:27)
[2017-08-27] MEDS ORDERED: Petrolatum, White OINT.PACK TP PRN ×2 (06:51→08:27)
[2017-08-27] MEDS ORDERED: *HR* LORazepam 0.5 MG TABLET PO PRN (06:51)
[2017-08-27] MEDS ORDERED: *HR* HYDROmorphone (PF) 1 MG/ML SYRINGE IVP PRN ×2 (06:51→08:27)
[2017-08-27] MEDS ORDERED: MetroNIDAZOLE 500 MG/100 ML 500 MG/100 ML BAG IVPB SCH (08:00)
--- NOTE | 2017-08-27 08:36 | Pulmonology Progress Note ---
Addendum entered and electronically signed by Ortiz Ferris, DO 08/27/17 08:57: Signout was provided to the admitting hospitalist, Dr. Varghese, who accepted the patient in transfer. Original Note: <Ortiz Ferris - Last Filed: 08/27/17 08:33> Date of Encounter: 08/27/17 Time of Encounter: 08:33 Assessment and Plan (1) Duodenitis with hemorrhage Current Visit: Yes Status: Acute Bleeding appears to have resolved. Patient's symptoms are much improved. Discontinue Zosyn, continue with Flagyl only. (2) Acute GI bleeding Current Visit: Yes Status: Resolved Resolved at this time. Secondary to duodenitis as discussed above. Patient received 2 units of red blood cells and 4 units of plasma. Hemoglobin is responded appropriately and there is no evidence of continual active bleeding. Spoke with GI given the patient's goals of care and her not wishing for aggressive measures we will hold off on endoscopy at this time. (3) Elevated INR Current Visit: Yes Status: Resolved Secondary to Coumadin toxicity. Patient received 4 units of FFP and 2.5 mg of vitamin K subcutaneously. INR is down to 1.6. no evidence of active bleeding. Continue monitor INR. (4) Diarrhea Current Visit: Yes Status: Resolved None since admission. Likely related to duodenitis as discussed above. Qualifiers: Diarrhea type: presumed infectious Qualified Code(s): A09 - Infectious gastroenteritis and colitis, unspecified (5) Acute respiratory failure with hypoxia Current Visit: No Status: Resolved Oxygenation is much improved, likely related to acute blood loss anemia as discussed above. Continue supplemental oxygen to keep her oxygen saturation above 90%. (6) Atrial fibrillation with rapid ventricular response Current Visit: No Status: Acute Heart rate much improved. Patient had 2 doses of digoxin yesterday. We will continue to monitor and treat her heart rate as necessary. (7) Non-STEMI (non-ST elevated myocardial infarction) Current Visit: No Status: Resolved Troponin has continued to increase and peaked at 1.6. Patient is chest pain- free and repeat EKG this morning shows no evidence of new ischemic changes. Echocardiogram is shows an EF of 40% with severe biatrial enlargement. After discussion with the patient and the family they would not be interested in invasive procedures to evaluate her elevated troponin. (8) Acute kidney injury superimposed on chronic kidney disease Current Visit: No Status: Resolved Creatinine slightly better, likely related to hypotension and acute blood loss anemia as discussed above. Patient does have good urine output. Continue monitor urine output and creatinine. (9) Heart failure with preserved ejection fraction Current Visit: Yes Status: Acute Stable. No evidence of acute fluid overload. Echo pending (10) Colon cancer Current Visit: No Status: Chronic Family is interested in discussing her treatment options with oncology. Oncology is consulted. Qualifiers: Colon location: ascending Qualified Code(s): C18.2 - Malignant neoplasm of ascending colon (11) Coronary artery disease Current Visit: No Status: Chronic Qualifiers: Coronary Disease-Associated Artery/Lesion type: [place] artery [place] vs. transplanted heart: [place] heart Associated angina: angina presence unspecified Qualified Code(s): I25.10 - Atherosclerotic heart disease of [place] coronary artery without angina pectoris (12) Goals of care, counseling/discussion Current Visit: Yes Status: Acute Discussed with daughter yesterday that the patient would not want aggressive measures including central line placement and observation. Yesterday evening I spoke with both the daughter and the patient and they continued to endorse a DNR CCA/DNI CODE STATUS and wished to talk to oncology regarding treatment options and prognosis before making any further decisions regarding her goals of care. Oncology has been consulted and will speak with the patient today. Subjective Principal diagnosis: GI bleed Interval history: Patient seen and examined at bedside. She states that she continues to feel better. States her abdominal pain is resolved. She is tolerating a diet well. She denies chest pain, shortness of breath, fever, chills, nausea, vomiting, diarrhea. Objective PUL Vital signs: Last Vital Signs Temp 96.3 F L 08/27/17 03:56 Pulse 73 08/27/17 06:00 Resp 10 08/27/17 06:00 BP 106/65 08/27/17 06:00 Pulse Ox 91 08/27/17 06:00 General appearance: no acute distress ENT: oropharynx moist Effort: normal Auscultation: bilateral: clear Cardiovascular: irregular rhythm Gastrointestinal: normoactive bowel sounds, soft, non-tender, non-distended Extremities: no cyanosis, no clubbing, edema (Trace bilaterally) normal mental status, non-focal exam Results - Laboratory Findings CBC and BMP: 08/27/17 03:21 08/27/17 03:21 PT/INR, D-dimer PT 17.1 Seconds (9.4-12.1) H 08/27/17 03:21 Abnormal lab findings: Abnormal lab results Hgb 9.1 g/dL (11.5-15.4) L 08/27/17 03:21 Hct 32.2 % (35.3-44.9) L 08/27/17 03:21 MCV 82.8 fL (83.0-100.0) L 08/27/17 03:21 MCH 23.4 pg (28.0-33.3) L 08/27/17 03:21 MCHC 28.3 g/dL (31.6-35.5) L 08/27/17 03:21 RDW 17.3 % (11.5-14.5) H 08/27/17 03:21 Nucleated RBCs/100 WBC 0.5 /100 WBC (0) H 08/26/17 17:32 Platelet Estimate Slight Decrease (Normal) L 08/27/17 03:21 Hypochromasia Present (Not Present) A 08/27/17 03:21 Poikilocytosis 1+ (Not Present) A 08/25/17 17:44 Anisocytosis 1+ (Not Present) A 08/27/17 03:21 PT 17.1 Seconds (9.4-12.1) H 08/27/17 03:21 BUN 52 mg/dL (7-20) H 08/27/17 03:21 Creatinine 1.86 mg/dL (0.57-1.11) H 08/27/17 03:21 Est GFR ( Amer) 31 (> 60) L 08/27/17 03:21 Est GFR (Non-Af Amer) 26 (> 60) L 08/27/17 03:21 BUN/Creatinine Ratio 28 (6-26) H 08/27/17 03:21 Glucose 110 mg/dL (70-99) H 08/27/17 03:21 POC Glucose 125 (58-89) H 08/26/17 11:26 Calculated Osmolality 307 (280-300) H 08/27/17 03:21 Troponin I 1.60 ng/mL (0-0.03) H* 08/26/17 05:02 C-Reactive Protein 9 mg/L (Less than 5) H 08/25/17 08:42 B-Natriuretic Peptide 1760 pg/mL (0-100) H 08/25/17 08:42 Serum Total Protein 5.2 g/dL (6.0-8.3) L 08/25/17 08:42 Albumin 2.6 g/dL (3.5-5.0) L 08/25/17 08:42 Albumin/Globulin Ratio 1.0 (1.1-2.2) L 08/25/17 08:42 - Clinical Findings Intake & Output: Intake & Output 08/26/17 08/27/17 08/27/17 23:59 07:59 15:59 Intake Total 450 / 450 300 / 300 Output Total 325 / 325 25 / 25 Balance 125 / 125 275 / 275 Consult Discharge Plan - Plan Referrals: Phyllis Parsons, CHOCOLATE MAKER [Primary Care Provider] - 09/02/17 1:00 pm <Laci Danielle - Last Filed: 08/27/17 11:36> Date of Encounter: 08/27/17 Objective PUL Vital signs: Last Vital Signs Temp 96.3 F L 08/27/17 03:56 Pulse 92 08/27/17 08:00 Resp 18 08/27/17 08:00 BP 103/73 08/27/17 08:00 Pulse Ox 93 08/27/17 08:00 Results - Laboratory Findings CBC and BMP: 08/27/17 03:21 08/27/17 03:21 PT/INR, D-dimer PT 17.1 Seconds (9.4-12.1) H 08/27/17 03:21 Abnormal lab findings: Abnormal lab results Hgb 9.1 g/dL (11.5-15.4) L 08/27/17 03:21 Hct 32.2 % (35.3-44.9) L 08/27/17 03:21 MCV 82.8 fL (83.0-100.0) L 08/27/17 03:21 MCH 23.4 pg (28.0-33.3) L 08/27/17 03:21 MCHC 28.3 g/dL (31.6-35.5) L 08/27/17 03:21 RDW 17.3 % (11.5-14.5) H 08/27/17 03:21 Nucleated RBCs/100 WBC 0.5 /100 WBC (0) H 08/26/17 17:32 Platelet Estimate Slight Decrease (Normal) L 08/27/17 03:21 Hypochromasia Present (Not Present) A 08/27/17 03:21 Poikilocytosis 1+ (Not Present) A 08/25/17 17:44 Anisocytosis 1+ (Not Present) A 08/27/17 03:21 PT 17.1 Seconds (9.4-12.1) H 08/27/17 03:21 BUN 52 mg/dL (7-20) H 08/27/17 03:21 Creatinine 1.86 mg/dL (0.57-1.11) H 08/27/17 03:21 Est GFR ( Amer) 31 (> 60) L 08/27/17 03:21 Est GFR (Non-Af Amer) 26 (> 60) L 08/27/17 03:21 BUN/Creatinine Ratio 28 (6-26) H 08/27/17 03:21 Glucose 110 mg/dL (70-99) H 08/27/17 03:21 POC Glucose 125 (58-89) H 08/26/17 11:26 Calculated Osmolality 307 (280-300) H 08/27/17 03:21 Troponin I 1.60 ng/mL (0-0.03) H* 08/26/17 05:02 C-Reactive Protein 9 mg/L (Less than 5) H 08/25/17 08:42 B-Natriuretic Peptide 1760 pg/mL (0-100) H 08/25/17 08:42 Serum Total Protein 5.2 g/dL (6.0-8.3) L 08/25/17 08:42 Albumin 2.6 g/dL (3.5-5.0) L 08/25/17 08:42 Albumin/Globulin Ratio 1.0 (1.1-2.2) L 08/25/17 08:42 - Clinical Findings Intake & Output: Intake & Output 08/26/17 08/27/17 08/27/17 23:59 07:59 15:59 Intake Total 450 / 450 300 / 300 Output Total 325 / 325 25 / 25 200 / 200 Balance 125 / 125 275 / 275 -200 / -200 - Attending Attestation I examined this patient and my medical decision-making was reviewed with the Resident Physician. I agree with the documented findings, disposition and treatment plan as described except to the extent set forth below. We independently had [id number] contact with the patient Patient seen and examined at bedside Labs, radiology, chart personally reviewed. Neuropsych: Awake and alert following commands continueto monitor for delirium and focus on sleep-wake cycle christianity and avoiding sensory deprivation Pulm: Adequate oxygenation on room air continue to follow Cards: Hypotension has resolved patient has an STEMI echocardiogram pending suspect this is related to demand ischemia from anemia and hypotension consider cardiology consult based upon results she is not a candidate for anticoagulation because of recent life-threatening gastrointestinal hemorrhage. Further invasive cardiac evaluation dependent upon goals of care FEN-GI: Advance diet as tolerated continue antimicrobials for duodenitis gastroenterology following no further episodes of gastrointestinal hemorrhage. Renal: Stable creatinine continue to monitor ID: Blood cultures and stool cultures pending continue Flagyl for concern of infectious duodenitis Heme/Onc: Mechanical DVT prophylaxis hemoglobin is stable Endo: Glucose Monitored Integ/MSK: Skin Care per routine ICU Nursing Protocol to prevent ulcers. Lines: All lines examined without evidence of infection Dispo: She is stable for transfer to telemetry for ongoing care CODE: DNA are DNI palliative care has been consulted for ongoing goals of care in this patient with several complicated comorbid medical conditions and with advanced malignancy
[2017-08-27] MEDS ORDERED: Nystatin SUSP 5 ML UD.LIQ PO SCH (09:00)
[2017-08-27] MEDS: Nystatin SUSP 5 ML UD.LIQ PO SCH ×3 (09:18→21:15)
--- NOTE | 2017-08-27 10:27 | Palliative Progress Note ---
Date of Encounter: 08/27/17 Time of Encounter: 10:25 - Assessment and plan (1) Anxiety Current Visit: No Status: Acute Assessment and plan: Continue with Lorazepam 0.5 bid PRN. Notified nurse she needs dose this am, if not administered in ICU. Monitor (2) Generalized pain Current Visit: Yes Status: Acute Assessment and plan: Taking po well now - will D/C low dose IV Hydromorphone and begin Oxycodone as per home every 6 hours PRN for her chronic back pain. (3) Goals of care, counseling/discussion Current Visit: Yes Status: Acute Assessment and plan: Daughter not present at my visit - will f/u. Awaiting oncology input. PT/OT ordered - they have not had opportunity to do eval yet. - she may need rehab after hospital stay. She has had rehab stay at [facility] in the past. She lives alone in apartment. Does have home health through [facility]. D/W Amrit Valiente (4) Atrial fibrillation with rapid ventricular response Current Visit: No Status: Acute (5) HCAP (healthcare-associated pneumonia) Current Visit: Yes Status: Acute (6) Liver metastasis Current Visit: No Status: Acute (7) Anemia Current Visit: No Status: Chronic Qualifiers: Anemia type: iron deficiency Iron deficiency anemia type: unspecified iron deficiency Qualified Code(s): D50.9 - Iron deficiency anemia, unspecified - Time Spent With Patient Total time spent is greater than 50% in coordination of care (as documented) at patient's floor/unit and/or counseling patient: 25 - 35 minutes - Subjective Interval history: Patient awake and oriented to person and place, but inappropriate statements at times. No family present. She is happy to be moved out of ICU. C/o anxiety and asking if she has had Ativan this am. Hgb stable. INR 1.6 this am. - Constitutional Vitals: Abnormal lab results Hgb 9.1 g/dL (11.5-15.4) L 08/27/17 03:21 Hct 32.2 % (35.3-44.9) L 08/27/17 03:21 MCV 82.8 fL (83.0-100.0) L 08/27/17 03:21 MCH 23.4 pg (28.0-33.3) L 08/27/17 03:21 MCHC 28.3 g/dL (31.6-35.5) L 08/27/17 03:21 RDW 17.3 % (11.5-14.5) H 08/27/17 03:21 Nucleated RBCs/100 WBC 0.5 /100 WBC (0) H 08/26/17 17:32 Platelet Estimate Slight Decrease (Normal) L 08/27/17 03:21 Hypochromasia Present (Not Present) A 08/27/17 03:21 Poikilocytosis 1+ (Not Present) A 08/25/17 17:44 Anisocytosis 1+ (Not Present) A 08/27/17 03:21 PT 17.1 Seconds (9.4-12.1) H 08/27/17 03:21 BUN 52 mg/dL (7-20) H 08/27/17 03:21 Creatinine 1.86 mg/dL (0.57-1.11) H 08/27/17 03:21 Est GFR ( Amer) 31 (> 60) L 08/27/17 03:21 Est GFR (Non-Af Amer) 26 (> 60) L 08/27/17 03:21 BUN/Creatinine Ratio 28 (6-26) H 08/27/17 03:21 Glucose 110 mg/dL (70-99) H 08/27/17 03:21 POC Glucose 125 (58-89) H 08/26/17 11:26 Calculated Osmolality 307 (280-300) H 08/27/17 03:21 Troponin I 1.60 ng/mL (0-0.03) H* 08/26/17 05:02 C-Reactive Protein 9 mg/L (Less than 5) H 08/25/17 08:42 B-Natriuretic Peptide 1760 pg/mL (0-100) H 08/25/17 08:42 Serum Total Protein 5.2 g/dL (6.0-8.3) L 08/25/17 08:42 Albumin 2.6 g/dL (3.5-5.0) L 08/25/17 08:42 Albumin/Globulin Ratio 1.0 (1.1-2.2) L 08/25/17 08:42 General appearance: Present: no acute distress - Respiratory Respiratory exam: Present: decreased breath sounds, CTAB - Cardiovascular Cardiovascular exam: Present: irregular rhythm - GI/Abdominal GI/Abdominal exam: Present: normal bowel sounds, soft - Extremities Exam Extremities exam: Present: normal capillary refill, normal inspection - Neurological Exam Neurological exam: Present: alert Additional comments: Oriented to name and place. Follows commands. Answers most questions appropriately - Skin Skin exam: Present: dry, warm Palliative Quality Palliative Quality: Screen for Code Status: Yes, Screen for Goals of Care: Yes, Screen for Pain: Yes, If Pain Regimen Started, Initiate Bowel Regimen: NA ( diarrhea), Screen for Nausea/Vomitting: Yes Code Status: 08/25/17 13:43 CODE [Resuscitation Status: Active] [RES] Routine Comment: Resuscitation Status: [id number] - Labs CBC & Chem 7: 08/27/17 03:21 08/27/17 03:21 Labs: Laboratory Results - last 24 hr 08/26/17 08/26/17 08/26/17 11:26 17:32 17:32 WBC 5.9 RBC 3.88 Hgb 9.1 L Hct 32.1 L MCV 82.7 L MCH 23.5 L MCHC 28.3 L RDW 17.3 H Plt Count 137 L MPV 10.4 Immature Gran % 0.9 Seg Neutrophils % 82.6 Lymphocytes % 6.7 Monocytes % 7.4 Eosinophils % 2.1 Basophils % 0.3 Neutrophils # 4.9 Lymphocytes # 0.4 L Monocytes # 0.4 Eosinophils # 0.1 Basophils # 0.0 Nucleated RBCs/100 WBC 0.5 H Platelet Estimate Normal Hypochromasia Present A Anisocytosis 1+ A PT 18.8 H INR 1.7 Sodium Potassium Chloride Carbon Dioxide BUN Creatinine Est GFR ( Amer) Est GFR (Non-Af Amer) BUN/Creatinine Ratio Glucose POC Glucose 125 H Calculated Osmolality Calcium Magnesium 08/27/17 08/27/17 08/27/17 03:21 03:21 03:21 WBC 5.0 RBC 3.89 Hgb 9.1 L Hct 32.2 L MCV 82.8 L MCH 23.4 L MCHC 28.3 L RDW 17.3 H Plt Count 146 MPV 11.1 Immature Gran % 0.6 Seg Neutrophils % 74.6 Lymphocytes % 13.1 Monocytes % 8.5 Eosinophils % 2.8 Basophils % 0.4 Neutrophils # 3.7 Lymphocytes # 0.7 Monocytes # 0.4 Eosinophils # 0.1 Basophils # 0.0 Nucleated RBCs/100 WBC Platelet Estimate Slight Decrease L Hypochromasia Present A Anisocytosis 1+ A PT 17.1 H INR 1.6 Sodium 141 Potassium 4.2 Chloride 109 Carbon Dioxide 24 BUN 52 H Creatinine 1.86 H Est GFR ( Amer) 31 L Est GFR (Non-Af Amer) 26 L BUN/Creatinine Ratio 28 H Glucose 110 H POC Glucose Calculated Osmolality 307 H Calcium 8.6 Magnesium 1.9 - Impressions Impressions Echocardiogram 08/25/17 18:41 Impressions: LVEF 40%. Mild-moderate reduction in LV systolic function. Not all wall segments were well visualized. Atypical septal motion. Indeterminate diastolic function. RV is dilated with moderate-severe reduction in function. IVS is flat throughout the cardiac cycle suggesting RV pressure/volume overload. Severe bi-atrial enlargement. Moderate tricuspid regurgitation - may be underestimated. Mild pulmonic regurgitation. Moderate to severe pulmonary hypertension. Left Ventricular Wall Motion: Rest Echo Findings The apical lateral, mid anterior lateral, basal anterior lateral, mid inferior lateral and basal inferior lateral hogue were hypokinetic. The apical septal, mid inferior septal, basal inferior septal, mid anterior septal and basal anterior septal hogue were dyskinetic. The apex, apical inferior, mid inferior, basal inferior, apical anterior, mid anterior and basal anterior hogue were not visualized. Findings: Study Quality * Technically challenging due to clinical status - patient not cooperating. ECG Findings * Atrial fibrillation. Left Ventricle * Atypical septal motion. * Indeterminate diastolic function. * LVEF 40%. * Normal LV size. Right Ventricle * RV is dilated with moderate-severe reduction in function. Left Atrium * Severely dilated left atrium. Right Atrium * Severely dilated right atrium. Aortic Valve * No aortic regurgitation. * Off-axis imaging - probably trileaflet. * Mildly sclerotic aortic valve leaflets. * No aortic stenosis. Mitral Valve * Trace mitral regurgitation. * Mild-moderate mitral annular calcification * No mitral stenosis. Tricuspid Valve * Moderate tricuspid regurgitation - may be underestimated. * Poor leaflet coaptation. * Estimated RA pressure is 15 mmHg. * Estimated RVSP is 57 mmHg. * Moderate to severe pulmonary hypertension. Pulmonic Valve * Pulmonic valve not well visualized. * Mild pulmonic regurgitation. * No pulmonic stenosis. Pulmonary Artery * Pulmonary artery not well visualized. Aorta * Normally sized aortic root. Pericardium * There is no pericardial effusion present. Interatrial Septum * No evidence of PFO by color Doppler. IVC * The IVC is dilated. * < 50% respiratory change. - ABG Interpretation ABG results: PT/INR, D-dimer PT 17.1 Seconds (9.4-12.1) H 08/27/17 03:21 Consult Discharge Plan - Plan Referrals: Phyllis Parsons, CONTRACT ADMINISTRATION MANAGER [Primary Care Provider] -
[2017-08-27] MEDS ORDERED: Lactulose Oral Soln 20 GM/30 ML UDC PO PRN (11:04)
[2017-08-27] MEDS: *HR* OxyCODONE Immed Rel 5 MG TABLET PO PRN ×2 (13:42→21:15)
[2017-08-27] MEDS ORDERED: *HR* Morphine 2 MG/ML SYRINGE IVP ONE (16:03)
[2017-08-27] MEDS: MetroNIDAZOLE 500 MG/100 ML 500 MG/100 ML BAG IVPB SCH (16:23)
[2017-08-27] MEDS ORDERED: Piperacillin/Tazobactam 3.375 GM in D5% in Water (Mini-Bag+) 100 ML IVPB SCH (18:00)
[2017-08-27 22:25] LABS: CK-MB (CK isoenzymes) 0 % (0-4); CK-MM (CK-isoenzymes) 100 % (96-100)
[2017-08-28] MEDS: MetroNIDAZOLE 500 MG/100 ML 500 MG/100 ML BAG IVPB SCH ×3 (00:16→19:48)
[2017-08-28] MEDS ORDERED: *HR* LORazepam 0.5 MG TABLET PO ONE (00:30)
[2017-08-28] MEDS: *HR* Morphine 2 MG/ML SYRINGE IVP PRN ×4 (00:55→21:55)
[2017-08-28 04:35] LABS: Basophils % 0.5 %; Immature Granulocytes % 0.5 % (0-4)
[2017-08-28 04:36] LABS: Eosinophils # 0.2 K/mcL (0.0-0.6); Eosinophils % 3.2 %; Hematocrit 34.8 % (35.3-44.9); Hemoglobin 9.8 g/dL (11.5-15.4); Lymphocytes # 0.7 K/mcL (0.6-4.6); Lymphocytes % 12.7 %; Mean Corpuscular HGB Conc 28.2 g/dL (31.6-35.5); Mean Corpuscular Hemoglobin 23.5 pg (28.0-33.3); Mean Corpuscular Volume 83.5 fL (83.0-100.0); Mean Platelet Volume 11.2 fL (9.4-12.4); Monocytes # 0.5 K/mcL (0.0-1.3); Monocytes % 8.4 %; Neutrophils # 4.2 K/mcL (1.6-8.9); Platelet Count 138 K/mcL (140-400); Red Blood Count 4.17 M/mcL (3.82-4.97); Segmented Neutrophils % 74.7 %
[2017-08-28 04:37] LABS: INR 1.3; Prothrombin Time 14.4 Seconds (9.4-12.1)
[2017-08-28 04:53] LABS: Calcium 8.6 mg/dL (8.6-10.8); Magnesium 1.6 mg/dL (1.6-2.6); Potassium 4.2 mEq/L (3.5-4.5)
[2017-08-28 05:13] LABS: Hypochromasia Present (Not Present); Platelet Estimate Normal (Normal)
[2017-08-28] MEDS: *HR* LORazepam 0.5 MG TABLET PO PRN (05:13)
[2017-08-28] MEDS: *HR* OxyCODONE Immed Rel 5 MG TABLET PO PRN (05:13)
[2017-08-28] MEDS: *HR* Promethazine 25 MG/ML VIAL IVP PRN ×2 (05:14→11:23)
[2017-08-28 07:17] LABS: CK Total (Ck Isoenzymes) 31 U/L (20-180); CK-BB (CK isoenzymes) 0 % (0-0)
--- NOTE | 2017-08-28 08:49 | Palliative Progress Note ---
Date of Encounter: 08/28/17 Time of Encounter: 08:00 - Assessment and plan (1) Anemia Current Visit: No Status: Chronic Assessment and plan: plan per hospitalist team Qualifiers: Anemia type: iron deficiency Iron deficiency anemia type: unspecified iron deficiency Qualified Code(s): D50.9 - Iron deficiency anemia, unspecified (2) Anxiety and depression Current Visit: No Status: Chronic Assessment and plan: under contol only 2 doses of ativan used yesterday (3) Goals of care, counseling/discussion Current Visit: Yes Status: Acute Assessment and plan: dnr a dni plan is for ecf at d/c will f/u on wednesday I was able to contact oncology and they did not have her on their list they will see her today (4) Generalized pain Current Visit: Yes Status: Acute Assessment and plan: under contol - Time Spent With Patient Total time spent is greater than 50% in coordination of care (as documented) at patient's floor/unit and/or counseling patient: - Subjective Interval history: no c/o this am but falls asleep quickly after awakening - Constitutional Vitals: Abnormal lab results Hgb 9.8 g/dL (11.5-15.4) L 08/28/17 03:53 Hct 34.8 % (35.3-44.9) L 08/28/17 03:53 MCH 23.5 pg (28.0-33.3) L 08/28/17 03:53 MCHC 28.2 g/dL (31.6-35.5) L 08/28/17 03:53 RDW 18.0 % (11.5-14.5) H 08/28/17 03:53 Plt Count 138 K/mcL (140-400) L 08/28/17 03:53 Nucleated RBCs/100 WBC 0.5 /100 WBC (0) H 08/26/17 17:32 Hypochromasia Present (Not Present) A 08/28/17 03:53 Poikilocytosis 1+ (Not Present) A 08/25/17 17:44 Anisocytosis 1+ (Not Present) A 08/27/17 03:21 PT 14.4 Seconds (9.4-12.1) H 08/28/17 03:53 Chloride 110 mEq/L (98-109) H 08/28/17 03:53 BUN 42 mg/dL (7-20) H D 08/28/17 03:53 Creatinine 1.69 mg/dL (0.57-1.11) H 08/28/17 03:53 Est GFR ( Amer) 35 (> 60) L 08/28/17 03:53 Est GFR (Non-Af Amer) 29 (> 60) L 08/28/17 03:53 Glucose 100 mg/dL (70-99) H 08/28/17 03:53 POC Glucose 125 (58-89) H 08/26/17 11:26 Calculated Osmolality 301 (280-300) H 08/28/17 03:53 Troponin I 0.45 ng/mL (0-0.03) H* 08/27/17 10:17 C-Reactive Protein 9 mg/L (Less than 5) H 08/25/17 08:42 B-Natriuretic Peptide 1760 pg/mL (0-100) H 08/25/17 08:42 Serum Total Protein 5.2 g/dL (6.0-8.3) L 08/25/17 08:42 Albumin 2.6 g/dL (3.5-5.0) L 08/25/17 08:42 Albumin/Globulin Ratio 1.0 (1.1-2.2) L 08/25/17 08:42 General appearance: Present: no acute distress - Head Head exam: Present: atraumatic, normal inspection - Eye Eye exam: Present: normal appearance - Respiratory Respiratory exam: Present: decreased breath sounds - Cardiovascular Cardiovascular exam: Present: RRR - GI/Abdominal GI/Abdominal exam: Present: normal bowel sounds, soft. Absent: tenderness - Neurological Exam Neurological exam: Present: alert (but falls back asleep ealily) - Psychiatric Psychiatric exam: Absent: agitated, anxious - Skin Skin exam: Present: dry, warm Palliative Quality Palliative Quality: Screen for Code Status: Yes, Screen for Goals of Care: Yes, Screen for Pain: Yes, If Pain Regimen Started, Initiate Bowel Regimen: NA ( diarrhea), Screen for Nausea/Vomitting: Yes Code Status: 08/25/17 13:43 CODE [Resuscitation Status: Active] [RES] Routine Comment: Resuscitation Status: [id number] - Labs CBC & Chem 7: 08/28/17 03:53 08/28/17 03:53 Labs: Laboratory Results - last 24 hr 08/25/17 08/27/17 08/28/17 08:42 10:17 03:53 WBC 5.6 RBC 4.17 Hgb 9.8 L Hct 34.8 L MCV 83.5 MCH 23.5 L MCHC 28.2 L RDW 18.0 H Plt Count 138 L MPV 11.2 Immature Gran % 0.5 Seg Neutrophils % 74.7 Lymphocytes % 12.7 Monocytes % 8.4 Eosinophils % 3.2 Basophils % 0.5 Neutrophils # 4.2 Lymphocytes # 0.7 Monocytes # 0.5 Eosinophils # 0.2 Basophils # 0.0 Platelet Estimate Normal Hypochromasia Present A PT INR Sodium Potassium Chloride Carbon Dioxide BUN Creatinine Est GFR ( Amer) Est GFR (Non-Af Amer) BUN/Creatinine Ratio Glucose Calculated Osmolality Calcium Magnesium Creatine Kinase 31 CK-MM (CK-3) 100 CK-MB (CK-2) 0 CK-BB (CK-1) 0 Macro CK Type I 0 Macro CK Type II 0 Troponin I 0.45 H* 08/28/17 08/28/17 03:53 03:53 WBC RBC Hgb Hct MCV MCH MCHC RDW Plt Count MPV Immature Gran % Seg Neutrophils % Lymphocytes % Monocytes % Eosinophils % Basophils % Neutrophils # Lymphocytes # Monocytes # Eosinophils # Basophils # Platelet Estimate Hypochromasia PT 14.4 H INR 1.3 Sodium 140 Potassium 4.2 Chloride 110 H Carbon Dioxide 22 BUN 42 H D Creatinine 1.69 H Est GFR ( Amer) 35 L Est GFR (Non-Af Amer) 29 L BUN/Creatinine Ratio 25 Glucose 100 H Calculated Osmolality 301 H Calcium 8.6 Magnesium 1.6 Creatine Kinase CK-MM (CK-3) CK-MB (CK-2) CK-BB (CK-1) Macro CK Type I Macro CK Type II Troponin I - ABG Interpretation ABG results: PT/INR, D-dimer PT 14.4 Seconds (9.4-12.1) H 08/28/17 03:53 Consult Discharge Plan - Plan Referrals: Phyllis Parsons, ESME [Primary Care Provider] - 09/02/17 1:00 pm
[2017-08-28] MEDS: Nystatin SUSP 5 ML UD.LIQ PO SCH ×4 (10:23→21:55)
--- NOTE | 2017-08-28 11:23 | Electrocardiograph Report ---
[address] [place] [address] Test Date: 2017-08-25 Pat Name: Kamila Da Silva Department: 109 Room: 3A41 Gender: F Personal Property Appraiser: LAURI : 1930 Requested By: Sotero Varghese Order Number: [id number] Reading MD: Nathaly Mckeon Measurements Intervals Holcomb Rate: 114 P: WI: 0 QRS: 107 QRSD: 120 T: 208 QT: 356 QTc: 424 Interpretive Statements ATRIAL FIBRILLATION WITH RAPID VENTRICULAR RESPONSE RIGHT BUNDLE BRANCH BLOCK SEPTAL MYOCARDIAL INFARCTION, PROBABLY OLD MODERATE T-WAVE ABNORMALITY, CONSIDER LATERAL ISCHEMIA MODERATE T-WAVE ABNORMALITY, CONSIDER INFERIOR ISCHEMIA Electronically Signed On 08-28-2017 11:21:22 EDT by Nathaly Mckeon
--- NOTE | 2017-08-28 14:24 | Internal Med Progress Note ---
Date of Encounter: 08/28/17 Time of Encounter: 10:35 - Assessment and plan (1) Duodenitis with hemorrhage Current Visit: Yes Status: Acute Assessment and plan: Improving. No further bleeding. No leukocytosis. Currently receiving Flagyl. We will stop this medication tomorrow. (2) Atrial fibrillation with rapid ventricular response Current Visit: Yes Status: Acute Assessment and plan: Patient in rapid A. fib this morning. We will continue to monitor with telemetry. If persists despite morning dose of metoprolol, we will place patient on intravenous Cardizem drip. High-risk for complications. No longer on anticoagulation due to GI bleed. (3) Acute GI bleeding Current Visit: Yes Status: Resolved Assessment and plan: Hemoglobin levels remained stable. No longer on anticoagulation. We will continue to monitor blood counts. (4) Acute kidney injury superimposed on chronic kidney disease Current Visit: Yes Status: Resolved Assessment and plan: Creatinine continues to trend downwards towards patient's baseline. (5) Acute respiratory failure with hypoxia Current Visit: Yes Status: Resolved Assessment and plan: Saturating at 93% On room air (6) Coronary artery disease Current Visit: Yes Status: Chronic Assessment and plan: No chest pain at this time. Qualifiers: Coronary Disease-Associated Artery/Lesion type: [place] artery [place] vs. transplanted heart: [place] heart Associated angina: angina presence unspecified Qualified Code(s): I25.10 - Atherosclerotic heart disease of [place] coronary artery without angina pectoris (7) Elevated INR Current Visit: Yes Status: Resolved (8) Goals of care, counseling/discussion Current Visit: Yes Status: Acute Assessment and plan: Palliative care following. Oncology has been consulted. We will await their evaluation and discussion with family regarding patient's prognosis. (9) Non-STEMI (non-ST elevated myocardial infarction) Current Visit: Yes Status: Resolved Assessment and plan: No chest pain. Troponins have trended downwards. - Subjective Interval history: Patient is lying in bed. According to nursing staff, she has been little agitated this morning. She did receive Ativan earlier today and has been sleeping since then. She apparently did not sleep well at all last night. Patient on surface within "no" to all questions. - Constitutional Vitals: Temp Pulse Resp BP Pulse Ox 97.9 F 79 16 116/72 93 08/28/17 12:09 08/28/17 12:09 08/28/17 12:09 08/28/17 12:09 08/28/17 12:09 General appearance: Absent: A&O X 0 Exam: Somnolent. - Respiratory Respiratory exam: Present: CTAB. Absent: accessory muscle use, rales, rhonchi, wheezes - Cardiovascular Cardiovascular exam: Present: irregular rhythm, +S1, +S2, tachycardia. Absent: diastolic murmur, gallop, rubs, systolic murmur - GI/Abdominal GI/Abdominal exam: Present: normal bowel sounds, soft, no peritoneal signs. Absent: distended, tenderness - Extremities Exam Extremities exam: Present: warm, radial pulses palpable and symmetrical. Absent : calf tenderness, cyanotic, pedal edema - Neurological Exam Neurological exam: Present: no focal deficits. Absent: facial droop, speech deficit Internal Medicine: Result - Labs CBC & Chem 7: 08/28/17 03:53 08/28/17 03:53 Labs: Short CBC 08/28/17 Range/Units 03:53 WBC 5.6 (4.3-11.1) K/mcL Hgb 9.8 L (11.5-15.4) g/dL Hct 34.8 L (35.3-44.9) % Plt Count 138 L (140-400) K/mcL Neutrophils # 4.2 (1.6-8.9) K/mcL BMP 08/28/17 03:53 Sodium 140 Potassium 4.2 Chloride 110 H Carbon Dioxide 22 BUN 42 H D Creatinine 1.69 H Glucose 100 H Calcium 8.6 Cardiac Enzymes 08/25/17 Range/Units 08:42 CK-MB (CK-2) 0 (0-4) % - ABG Interpretation ABG results: PT/INR, D-dimer PT 14.4 Seconds (9.4-12.1) H 08/28/17 03:53 - VTE Documentation of Mechanical Device: Intermittent pneumatic compression device Consult Discharge Plan - Plan Referrals: Phyllis Parsons CNP [Primary Care Provider] - 09/02/17 1:00 pm
[2017-08-29] MEDS: *HR* OxyCODONE Immed Rel 5 MG TABLET PO PRN ×2 (01:12→16:38)
[2017-08-29] MEDS: *HR* LORazepam 0.5 MG TABLET PO PRN ×3 (01:13→16:39)
[2017-08-29] MEDS: MetroNIDAZOLE 500 MG/100 ML 500 MG/100 ML BAG IVPB SCH ×2 (01:13→10:36)
[2017-08-29] MEDS: *HR* Promethazine 25 MG/ML VIAL IVP PRN ×2 (01:16→10:36)
[2017-08-29] MEDS: *HR* Morphine 2 MG/ML SYRINGE IVP PRN ×4 (04:59→22:19)
[2017-08-29] MEDS: Nystatin SUSP 5 ML UD.LIQ PO SCH ×3 (10:33→22:19)
--- NOTE | 2017-08-29 11:11 | Oncology Inp Consult Note ---
Date of Encounter: 08/30/17 Time of Encounter: 11:09 Assessment and Plan (1) NSTEMI (non-ST elevated myocardial infarction) Status: Acute Assessment and plan: Some of this could be demand ischemia. She does have poor ejection fraction and right ventricular dysfunction. History of atrial fibrillation. But given the acute anemia and GI bleeding would recommend against anticoagulation (2) Acute GI bleeding Status: Resolved Assessment and plan: Secondary to duodenitis. Conservative management with Protonix. She improved and hemoglobin stable at 9.8 after 2 units of packed RBC transfusion She has benign deficient for a while If necessary would consider IV iron B12 are normal at 270 folate normal. (3) CKD (chronic kidney disease), stage III Status: Chronic Assessment and plan: She has 1 lady 1 kidney. Creatinine stable around 1.6 (4) Colon cancer Status: Chronic Assessment and plan: Metastatic colon cancer with isolated liver metastases treated with SBRT as mentioned in June 2016 Her CEA reminded to always lobe at the low to value around 1.6 in March 2017 and repeat CEA still low at 2.6 in 08/28/2017. current CAT scan 08/25/2017 abdomen and pelvis without contrast could see fiducial left lobe of the liver. There is no major difference compared to 04/20. May consider PET scan as an outpatient document her cancer burden Overall her cancer burden and reminds low. And she may also have some endometrial thickening. But given her poor general condition workup for that may not be necessary at this time She has a daughter. He tried to discuss further workup for colon cancer with her She may be a candidate for hospice given her poor cardiac functional status. As mentioned above I am not sure if her cancer burden but appears to be low Qualifiers: Colon location: ascending Qualified Code(s): C18.2 - Malignant neoplasm of ascending colon - Data of Consult Patient: known to practice within the last 3 years Requesting Physician: Gary Milian MD Primary Care Provider: Phyllis Parsons CNP - Consult Narrative Reason for consult: Metastatic colon cancer History of present illness: Ms. Da Silva is a 87 year old female admitted with anemia hemoglobin around 6.6. INR 4.7 due to supratherapeutic Coumadin. In 2 units of packed RBC last one 08/26/2017 and 4 units of FFP. Her hemoglobin is staying stable around 9.8 CAT scan shows no evidence of duodenitis. Also possible pancreatitis but lipase normal at 20 on 08/26/2017. She had troponin peak of 1.6 on 08/25/2017 and Value came down to about 0.5 Echocardiogram 08/25/2017 showed low ejection fraction 40%. Also mild diastolic dysfunction. Severe right ventricular dilation with reduction in function. Moderate tricuspid and pulmonic regurgitation Pulmonology and GI involved Oncology history Colonoscopy 12/20/2015 revealed a malignant, partially obstructing tumor in the hepatic flexure. Biopsy confirmed a poorly differentiated malignancy compatible with colon primary. On 12/23/2015, she had an ascending colectomy by Dr. Callejas. Pathology confirmed an 8.5 cm poorly differentiated adenocarcinoma associated with invasion of the pericolonic adipose tissue. Resection margins were negative. 29 lymph nodes examined were negative for malignancy. Stage: [id number] II colon cancer. Preop CEA:0.8 Progression to metastatic disease Restaging CT scan 04/30/16 showed a 3.5 cm lesion within the left hepatic lobe which is new versus 12/25/15 and presumably metastatic. PET/CT 05/06/16 confirmed hypermetabolic left hepatic lobe mass consistent with liver metastases. Additional nonneoplastic findings related to previous surgery and imaging artifact. Biopsy 05/27/16 was positive for adenocarcinoma. Positive for CDX 2, CEA but negative for CK 7, CK 20 consistent with colorectal liver metastasis. SBRT to left lobe liver lesion from 07/09- by Dr. Delgado. We previously planned to treat with Xeloda for 6 months but we decided to hold off on adjuvant chemotherapy due to prolonged treatment delay of more than 6 months from diagnosis of liver metastasis. CT abdomen 04/20/17 showed interval increase in size of previously treated left hepatic lobe (segment 2 and 3) mass now measuring 5.2 cm versus previous of 4 cm. No other evidence of malignancy. Contrast not administered due to kidney dysfunction. Medical problems She ambulates with a wheeled walker which is her usual baseline. She does have remote history of left nephrectomy for nonmalignant indication. She's established with cardiology regarding paroxysmal A. fib and followed by Dr. Diego Motta. Amiodarone was discontinued due to concern about toxicity profile and since patient was in sinus rhythm by the time of evaluation. Past Med Surg Social Fam HX - Past Medical History Medical history: atrial fibrillation, CHF, coronary artery disease, CVA, GI bleed, hypertension, myocardial infarction Psychiatric history: anxiety - Past Surgical History Surgical History: non-contributory - Social History Smoking Status: Former smoker Smokeless Tobacco Status: No Alcohol use: none Drug use: none - Family History Mother History Unknown: Yes Age: 101 Family Member Ethnicity: Unknown Living Status: Cause of : heart attack Hx Family Cardiac Disorders: No Hx Family Respiratory Disorders: No Hx Family Cancer: Yes (colon) Hx Family GI Disorders: No Hx Family Endocrine Disorder: No Hx Family Neuromuscular Disorders: No Hx Family Neurologic Disorders: No Hx Family HEENT Disorders: No Hx Family Autoimmune Disorders: No Medications and Allergies LORazepam [Ativan] 0.5 mg PO TID PRN 08/07/16 [History] Aspirin [Lo-Dose Aspirin EC] 1 tab PO DAILY 08/11/16 [History] Acetaminophen [Tylenol] 500 mg PO TID PRN 05/19/17 [History] Cholecalciferol (D-3) [Vitamin D] 5,000 unit PO DAILY 05/19/17 [History] Levothyroxine [Synthroid] 100 mcg PO DAILY #30 05/20/17 [Rx] Oxycodone HCl [Oxaydo] 2.5 - 5 mg PO Q6H PRN #60 06/18/17 [Rx] Clopidogrel [Plavix] 75 mg PO DAILY 08/02/17 [History] Diltiazem CD (24hr) [Cardizem CD] 120 mg PO DAILY 08/02/17 [History] Furosemide [Lasix] 40 mg PO DAILY 08/02/17 [History] Warfarin [Coumadin] 2.5 mg PO SUWETHSA 08/02/17 [History] Metoprolol XL (24 HR) Succ [Toprol XL] 75 mg PO DAILY #90 tab.er.24h 08/04/17 [ Rx] Warfarin [Coumadin] 1.25 mg PO FR 08/25/17 [History] 3 Allergy/AdvReac Type Severity Reaction Status Date / Time tuberculin,PPD,multi-puncture Allergy Hypertensio Verified 04/22/17 13:20 n meperidine [From Demerol] AdvReac Vomiting Verified 04/22/17 13:20 IVP DYE Allergy Hives Uncoded 05/19/17 11:22 Oncology - Exam - Constitutional Vitals: Temp Pulse Resp BP Pulse Ox 97.7 F 87 17 103/70 95 08/29/17 07:24 08/29/17 07:24 08/29/17 07:24 08/29/17 07:24 08/29/17 07:24 Consult Discharge Plan - Plan Referrals: Phyllis Parsons, ESME [Primary Care Provider] - 09/02/17 1:00 pm
--- NOTE | 2017-08-29 12:28 | Internal Med Progress Note ---
Date of Encounter: 08/29/17 Time of Encounter: 09:05 - Assessment and plan (1) Duodenitis with hemorrhage Current Visit: Yes Status: Acute Assessment and plan: Acute bleeding site seems to have subsided. Patient's blood counts have been stable. Place patient on PPI. No indication for further antibiotics. (2) Atrial fibrillation with rapid ventricular response Current Visit: Yes Status: Acute Assessment and plan: Heart rate is better controlled at this time. Continue metoprolol. Not on anticoagulation due to GI bleed (3) Acute GI bleeding Current Visit: Yes Status: Resolved (4) Acute kidney injury superimposed on chronic kidney disease Current Visit: Yes Status: Resolved (5) Acute respiratory failure with hypoxia Current Visit: Yes Status: Resolved (6) Coronary artery disease Current Visit: Yes Status: Chronic Assessment and plan: Patient not on aspirin or Plavix due to acute GI bleed. Qualifiers: Coronary Disease-Associated Artery/Lesion type: [place] artery [place] vs. transplanted heart: [place] heart Associated angina: angina presence unspecified Qualified Code(s): I25.10 - Atherosclerotic heart disease of [place] coronary artery without angina pectoris (7) Elevated INR Current Visit: Yes Status: Resolved (8) Goals of care, counseling/discussion Current Visit: Yes Status: Acute Assessment and plan: Discussed with oncology. Palliative care following. With current records, unable to assess patient's tumor burden. She did have a liver lesion for which she does received SBRT. However, she does have multiple comorbidities and given her advanced age has poor prognosis. With Her A. fib and coronary artery disease, she would need to be on anticoagulation and antiplatelet drugs. However given her GI bleed, these medications cannot be started at this time. This does increase her risk of stroke and ACS. With all these factors and consideration, I do think hospice may be appropriate for her. We will discuss this further with family and palliative care tomorrow. (9) Non-STEMI (non-ST elevated myocardial infarction) Current Visit: Yes Status: Resolved Assessment and plan: Troponins trended down. No chest pain at this time. Conservative management. No aspirin or Plavix due to GI bleed. (10) Colon cancer Current Visit: Yes Status: Chronic Assessment and plan: Oncology input appreciated. Unable to assess patient's tumor burden. If we need to further evaluate this, consider PET CT scan as outpatient. CEA level ordered. Qualifiers: Colon location: ascending Qualified Code(s): C18.2 - Malignant neoplasm of ascending colon - Subjective Interval history: Patient somnolent at this time. Not waking up to answer questions. No acute issues reported overnight. No new episodes of agitation. - Constitutional Vitals: Temp Pulse Resp BP Pulse Ox 97.8 F 82 17 116/73 93 08/29/17 11:50 08/29/17 11:50 08/29/17 11:50 08/29/17 11:50 08/29/17 11:50 General appearance: Absent: A&O X 0, answers questions appropriately - Respiratory Respiratory exam: Present: CTAB. Absent: accessory muscle use, rales, rhonchi, wheezes - Cardiovascular Cardiovascular exam: Present: RRR, +S1, +S2. Absent: diastolic murmur, gallop, rubs, systolic murmur - GI/Abdominal GI/Abdominal exam: Present: normal bowel sounds, soft, no peritoneal signs. Absent: distended, tenderness - Neurological Exam Neurological exam: Present: altered. Absent: facial droop, speech deficit Additional comments: Somnolent. Not waking up to answer questions. Internal Medicine: Result - Labs CBC & Chem 7: 08/28/17 03:53 08/28/17 03:53 - ABG Interpretation ABG results: PT/INR, D-dimer PT 14.4 Seconds (9.4-12.1) H 08/28/17 03:53 - VTE Documentation of Mechanical Device: Intermittent pneumatic compression device Consult Discharge Plan - Plan Referrals: Phyllis Parsons CNP [Primary Care Provider] - 09/02/17 1:00 pm
[2017-08-29 13:04] LABS: Carcinoembryonic Antigen 2.4 ng/mL (0-5.0)
[2017-08-30] MEDS: *HR* Morphine 2 MG/ML SYRINGE IVP PRN ×2 (04:04→08:12)
[2017-08-30] MEDS: *HR* LORazepam 0.5 MG TABLET PO PRN ×2 (05:53→17:51)
[2017-08-30] MEDS: *HR* OxyCODONE Immed Rel 5 MG TABLET PO PRN (05:53)
[2017-08-30] MEDS: Nystatin SUSP 5 ML UD.LIQ PO SCH ×3 (07:59→22:57)
[2017-08-30] MEDS ORDERED: Furosemide 40 MG/4 ML VIAL IVP ONE (09:45)
[2017-08-30] MEDS ORDERED: *HR* OxyCODONE Immed Rel 5 MG TABLET PO PRN (11:05)
--- NOTE | 2017-08-30 11:23 | Palliative Progress Note ---
Date of Encounter: 08/30/17 Time of Encounter: 11:15 - Assessment and plan (1) Anxiety Current Visit: No Status: Acute Assessment and plan: Patient appears to have increased anxiety - she is on her current home dose - however, does not appear to be quite effective. Will increase to 1mg BID PRN and monitor (2) Generalized pain Current Visit: Yes Status: Acute Assessment and plan: She has been started on IV Morphine over the weekend. Will D/C and transition to Roxanol 10 mg every 3 hours PRN and monitor (3) Goals of care, counseling/discussion Current Visit: Yes Status: Acute Assessment and plan: D/W Dr. Milian. Attempting to reach daughter Alexus. Reached her and states she has left and did not take her cellphone. Will attempt to call later. (4) Atrial fibrillation with rapid ventricular response Current Visit: Yes Status: Acute (5) HCAP (healthcare-associated pneumonia) Current Visit: Yes Status: Acute (6) Liver metastasis Current Visit: No Status: Acute (7) Anemia Current Visit: No Status: Chronic Qualifiers: Anemia type: iron deficiency Iron deficiency anemia type: unspecified iron deficiency Qualified Code(s): D50.9 - Iron deficiency anemia, unspecified - Time Spent With Patient Total time spent is greater than 50% in coordination of care (as documented) at patient's floor/unit and/or counseling patient: 25 - 35 minutes - Subjective Interval history: Patient yelling out c/o abd pain. No family present. Patient appears agitated and yelling for help. Oncology consult reviewed and D/W Dr. Milian. - Constitutional Vitals: Abnormal lab results Hgb 9.8 g/dL (11.5-15.4) L 08/28/17 03:53 Hct 34.8 % (35.3-44.9) L 08/28/17 03:53 MCH 23.5 pg (28.0-33.3) L 08/28/17 03:53 MCHC 28.2 g/dL (31.6-35.5) L 08/28/17 03:53 RDW 18.0 % (11.5-14.5) H 08/28/17 03:53 Plt Count 138 K/mcL (140-400) L 08/28/17 03:53 Nucleated RBCs/100 WBC 0.5 /100 WBC (0) H 08/26/17 17:32 Hypochromasia Present (Not Present) A 08/28/17 03:53 Poikilocytosis 1+ (Not Present) A 08/25/17 17:44 Anisocytosis 1+ (Not Present) A 08/27/17 03:21 PT 14.4 Seconds (9.4-12.1) H 08/28/17 03:53 Chloride 110 mEq/L (98-109) H 08/28/17 03:53 BUN 42 mg/dL (7-20) H D 08/28/17 03:53 Creatinine 1.69 mg/dL (0.57-1.11) H 08/28/17 03:53 Est GFR ( Amer) 35 (> 60) L 08/28/17 03:53 Est GFR (Non-Af Amer) 29 (> 60) L 08/28/17 03:53 Glucose 100 mg/dL (70-99) H 08/28/17 03:53 POC Glucose 125 (58-89) H 08/26/17 11:26 Calculated Osmolality 301 (280-300) H 08/28/17 03:53 Troponin I 0.45 ng/mL (0-0.03) H* 08/27/17 10:17 C-Reactive Protein 9 mg/L (Less than 5) H 08/25/17 08:42 B-Natriuretic Peptide 1760 pg/mL (0-100) H 08/25/17 08:42 Serum Total Protein 5.2 g/dL (6.0-8.3) L 08/25/17 08:42 Albumin 2.6 g/dL (3.5-5.0) L 08/25/17 08:42 Albumin/Globulin Ratio 1.0 (1.1-2.2) L 08/25/17 08:42 General appearance: Present: mild distress - Respiratory Respiratory exam: Present: decreased breath sounds, CTAB - Cardiovascular Cardiovascular exam: Present: tachycardia - GI/Abdominal GI/Abdominal exam: Present: normal bowel sounds, soft, tenderness - Extremities Exam Extremities exam: Present: normal capillary refill, normal inspection - Neurological Exam Neurological exam: Present: alert, strengths equal and symetr throughout - Skin Skin exam: Present: dry, pallor, warm Palliative Quality Palliative Quality: Screen for Code Status: Yes, Screen for Goals of Care: Yes, Screen for Pain: Yes, If Pain Regimen Started, Initiate Bowel Regimen: NA ( diarrhea), Screen for Nausea/Vomitting: Yes Code Status: 08/25/17 13:43 CODE [Resuscitation Status: Active] [RES] Routine Comment: Resuscitation Status: [id number] - Labs CBC & Chem 7: 08/28/17 03:53 08/28/17 03:53 Labs: Laboratory Results - last 24 hr 08/28/17 03:53 Sodium 140 Potassium 4.2 Chloride 110 H Carbon Dioxide 22 BUN 42 H D Creatinine 1.69 H Est GFR ( Amer) 35 L Est GFR (Non-Af Amer) 29 L BUN/Creatinine Ratio 25 Glucose 100 H Calculated Osmolality 301 H Calcium 8.6 Magnesium 1.6 Carcinoembryonic Ag 2.4 - ABG Interpretation ABG results: PT/INR, D-dimer PT 14.4 Seconds (9.4-12.1) H 08/28/17 03:53 Consult Discharge Plan - Plan Referrals: Phyllis Parsons CNP [Primary Care Provider] - 09/02/17 1:00 pm
[2017-08-30] MEDS: Diltiazem CD (24hr) 120 MG CAPSULE PO SCH (11:34)
[2017-08-30] MEDS: Morphine Oral CONC 5 MG/0.25 ML ORAL.SYG PO PRN ×2 (12:05→16:47)
--- NOTE | 2017-08-30 14:41 | Internal Med Progress Note ---
Date of Encounter: 08/30/17 Time of Encounter: 14:38 - Assessment and plan (1) Duodenitis with hemorrhage Current Visit: Yes Status: Resolved Assessment and plan: No new episodes of bleeding. Completed antibiotic course. Continue PPI (2) Atrial fibrillation with rapid ventricular response Current Visit: Yes Status: Acute Assessment and plan: Will resume diltiazem. Heart rate is controlled. No longer on anticoagulation due to GI bleed (3) Acute GI bleeding Current Visit: Yes Status: Resolved (4) Acute kidney injury superimposed on chronic kidney disease Current Visit: Yes Status: Resolved Assessment and plan: Stable renal function. (5) Acute respiratory failure with hypoxia Current Visit: Yes Status: Resolved (6) Coronary artery disease Current Visit: Yes Status: Chronic Assessment and plan: No chest pain. Patient is not on aspirin or Plavix due to GI bleed. Qualifiers: Coronary Disease-Associated Artery/Lesion type: [place] artery [place] vs. transplanted heart: [place] heart Associated angina: angina presence unspecified Qualified Code(s): I25.10 - Atherosclerotic heart disease of [place] coronary artery without angina pectoris (7) Elevated INR Current Visit: Yes Status: Resolved (8) Goals of care, counseling/discussion Current Visit: Yes Status: Acute Assessment and plan: Recommend hospice due to her various comorbidities including atrial fibrillation , coronary artery disease, colon cancer. Palliative care following and will contact family members to make necessary arrangements. (9) Non-STEMI (non-ST elevated myocardial infarction) Current Visit: Yes Status: Resolved (10) Colon cancer Current Visit: Yes Status: Chronic Assessment and plan: Oncology input appreciated. Patient will follow up outpatient with oncology if needed. CODE STATUS is DNR/DNI. Qualifiers: Colon location: ascending Qualified Code(s): C18.2 - Malignant neoplasm of ascending colon (11) Pedal edema Current Visit: Yes Status: Acute Assessment and plan: Due to IV hydration and hypoalbuminemia with underlying left ventricular systolic dysfunction. Will place patient on Lasix. (12) Acute exacerbation of congestive heart failure Current Visit: Yes Status: Acute Assessment and plan: Lasix was held initially due to acute kidney injury. Now the patient is having orthopnea and pedal edema. We will place her back on Lasix. Qualifiers: Congestive heart failure type: combined Qualified Code(s): I50.43 - Acute on chronic combined systolic (congestive) and diastolic (congestive) heart failure (13) Sepsis Current Visit: Yes Status: Resolved Assessment and plan: Due to duodenitis, acute blood loss anemia. Qualifiers: Sepsis type: sepsis due to unspecified organism Qualified Code(s): A41.9 - Sepsis, unspecified organism - Subjective Interval history: Patient seen earlier today. She had breakfast this morning and was sitting up in bed. Appeared comfortable. Complained of pain in her abdomen and in her lower extremities. Also complaining of swelling in her lower extremities. Also has orthopnea. Later in the day, patient became more agitated. No change in her vital signs. No other acute issues identified. - Constitutional Vitals: Temp Pulse Resp BP Pulse Ox 98.3 F 74 18 97/63 94 08/30/17 14:36 08/30/17 14:36 08/30/17 14:36 08/30/17 14:36 08/30/17 14:36 General appearance: Present: cooperative, A&O X 2, mild distress, answers questions appropriately - Respiratory Respiratory exam: Present: CTAB. Absent: accessory muscle use, rales, rhonchi, wheezes - Cardiovascular Cardiovascular exam: Present: RRR, +S1, +S2. Absent: diastolic murmur, gallop, rubs, systolic murmur - GI/Abdominal GI/Abdominal exam: Present: normal bowel sounds, soft, tenderness (Generalized) , no peritoneal signs. Absent: distended - Extremities Exam Extremities exam: Present: pedal edema (Bilateral pitting), warm, radial pulses palpable and symmetrical. Absent: calf tenderness, cyanotic Internal Medicine: Result - Labs CBC & Chem 7: 08/28/17 03:53 08/28/17 03:53 - ABG Interpretation ABG results: PT/INR, D-dimer PT 14.4 Seconds (9.4-12.1) H 08/28/17 03:53 - VTE Documentation of Mechanical Device: Intermittent pneumatic compression device Consult Discharge Plan - Plan Referrals: Phyllis Parsons CNP [Primary Care Provider] - 09/02/17 1:00 pm
[2017-08-31 05:36] LABS: Potassium 4.3 mEq/L (3.5-4.5)
[2017-08-31] MEDS: *HR* LORazepam 0.5 MG TABLET PO PRN (06:08)
[2017-08-31] MEDS: Nystatin SUSP 5 ML UD.LIQ PO SCH ×3 (08:37→21:24)
[2017-08-31] MEDS: Diltiazem CD (24hr) 120 MG CAPSULE PO SCH (08:37)
[2017-08-31] MEDS: Morphine Oral CONC 5 MG/0.25 ML ORAL.SYG PO PRN ×2 (08:41→14:57)
--- NOTE | 2017-08-31 10:16 | Event Note ---
Date of Encounter: 08/31/17 Time of Encounter: 10:00 Patient sleeping quietly - had pain medication about an hour ago. Staff reports "decent night" - there was issue with her asking for pain medication during the night and syringes in pyxis were empty. No other issues noted. Shaka primary nurse reporting she is calmer and not yelling out as she was yesterday. SW working on d/c - the requested ECF has refused her, daughter now requesting [facility] and awaiting the approval to transition there with [facility]. I did complete scripts for Roxanol and Lorazepam that will need send with her to ECF. D/W primary nurse. Will f/u if needed this afternoon.
[2017-08-31] MEDS ORDERED: Diltiazem CD (24hr) 120 MG CAPSULE PO SCH (11:13)
[2017-08-31] MEDS: *HR* LORazepam 1 MG TABLET PO PRN ×2 (13:39→21:25)
[2017-08-31] MEDS ORDERED: Furosemide 40 MG/4 ML VIAL IVP ONE (17:14)
--- NOTE | 2017-08-31 21:03 | Internal Med Progress Note ---
Date of Encounter: 08/31/17 Time of Encounter: 13:01 - Assessment and plan (1) Anxiety Current Visit: No Status: Acute Assessment and plan: Ativan TID prn which is home medication dose. (2) Atrial fibrillation with RVR Current Visit: Yes Status: Acute Assessment and plan: Rate controlled on metoprolol and cardizem. She is a poor candidate for anticoagulation therapy. (3) CKD (chronic kidney disease), stage III Current Visit: No Status: Chronic Assessment and plan: Cr improved to 1.14. Medications are to be renally dosed. She is fluid overloaded despite Lasix yesterday, will need to give Lasix 40 mg IV today and monitor urine output. (4) Coronary artery disease Current Visit: Yes Status: Chronic Assessment and plan: No chest pain. Patient is not on aspirin or Plavix due to GI bleed. Qualifiers: Coronary Disease-Associated Artery/Lesion type: [place] artery [place] vs. transplanted heart: tribe heart Associated angina: angina presence unspecified Qualified Code(s): I25.10 - Atherosclerotic heart disease of tribe coronary artery without angina pectoris (5) Duodenitis with hemorrhage Current Visit: Yes Status: Resolved Assessment and plan: No new episodes of bleeding. Completed antibiotic course. Continue PPI. Anticoagulants and anti-platelet medications are discontinued. (6) HCAP (healthcare-associated pneumonia) Current Visit: Yes Status: Acute (7) Hypertension Current Visit: No Status: Acute Qualifiers: Hypertension type: essential hypertension Qualified Code(s): I10 - Essential (primary) hypertension (8) Liver metastasis Current Visit: No Status: Acute (9) NSTEMI (non-ST elevated myocardial infarction) Current Visit: Yes Status: Acute (10) Elevated INR Current Visit: Yes Status: Resolved (11) Goals of care, counseling/discussion Current Visit: Yes Status: Acute Assessment and plan: Recommend hospice due to her various comorbidities including atrial fibrillation , coronary artery disease, colon cancer. Palliative care following and will contact family members to make necessary arrangements. Currently placement is ongoing to find patient facility that she will be accepted to. (12) Pedal edema Current Visit: Yes Status: Acute Assessment and plan: Due to IV hydration and hypoalbuminemia with underlying left ventricular systolic dysfunction. Received Lasix 08/30. Will give today and monitor I/O. Fluid restrict. Instructed patient to elevate legs. Compression stockings. Continue low sodium diet. She denies SOB, but will get a chest x-ray today to verify she is not having any pulmonary edema. (13) Sepsis Current Visit: Yes Status: Resolved Assessment and plan: Due to duodenitis, acute blood loss anemia. Qualifiers: Sepsis type: sepsis due to unspecified organism Qualified Code(s): A41.9 - Sepsis, unspecified organism (14) Acute kidney injury superimposed on chronic kidney disease Current Visit: Yes Status: Resolved Assessment and plan: Stable renal function. (15) Heart failure with reduced ejection fraction Current Visit: Yes Status: Acute Assessment and plan: As seen on echocardiogram 08/25/17. Currently on BB metoprolol Consider adding ACEi/ARB tomorrow morning if blood pressure and kidney function tolerates. Qualifiers: Heart failure chronicity: chronic Qualified Code(s): I50.22 - Chronic systolic (congestive) heart failure (16) Heart failure, left, with LVEF 31-40% Current Visit: Yes Status: Acute - Subjective Interval history: Reported by patient and nursing that she is anxious. Patient feels anxious about swelling in both of her feet. She denies shortness of breath, chest pain , n/v, orthopnea. - Constitutional Vitals: Temp Pulse Resp BP Pulse Ox 98.0 F 75 16 116/67 99 08/31/17 19:24 08/31/17 19:24 08/31/17 19:24 08/31/17 19:24 08/31/17 19:24 General appearance: Present: cooperative, A&O X 2, mild distress, answers questions appropriately Exam: CVS: irreg irreg rhythm, normal rate Lungs: fair air exchange, + rales in R lower lung field. No wheezing. Abd: Soft, Nt, nd Ext: bipedal pitting edema extending above knees. Internal Medicine: Result - Labs CBC & Chem 7: 08/28/17 03:53 08/31/17 04:47 Labs: BMP 08/31/17 04:47 Sodium 139 Potassium 4.3 Chloride 109 Carbon Dioxide 20 BUN 28 H Creatinine 1.14 H Glucose 98 Calcium 9.0 - ABG Interpretation ABG results: PT/INR, D-dimer PT 14.4 Seconds (9.4-12.1) H 08/28/17 03:53 - VTE Documentation of Mechanical Device: Intermittent pneumatic compression device Consult Discharge Plan - Plan Referrals: Phyllis Parsons CNP [Primary Care Provider] - 09/02/17 1:00 pm Prescriptions: LORazepam [Ativan] 1 mg PO BID PRN #60 tablet PRN Reason: Anxiety Morphine Oral CONC [Roxanol] 0.5 ml PO Q3H PRN #30 ml PRN Reason: pain/dyspnea
[2017-09-01 04:58] LABS: Calcium 9.1 mg/dL (8.6-10.8); Potassium 4.1 mEq/L (3.5-4.5)
[2017-09-01 05:01] LABS: Basophils % 0.4 %; Eosinophils # 0.2 K/mcL (0.0-0.6); Eosinophils % 3.5 %; Hematocrit 36.4 % (35.3-44.9); Hemoglobin 10.6 g/dL (11.5-15.4); Immature Granulocytes % 0.8 % (0-4); Lymphocytes # 1.2 K/mcL (0.6-4.6); Lymphocytes % 24.2 %; Mean Corpuscular HGB Conc 29.1 g/dL (31.6-35.5); Mean Corpuscular Hemoglobin 23.4 pg (28.0-33.3); Mean Corpuscular Volume 80.4 fL (83.0-100.0); Mean Platelet Volume 10.8 fL (9.4-12.4); Monocytes # 0.5 K/mcL (0.0-1.3); Neutrophils # 2.9 K/mcL (1.6-8.9); Platelet Count 130 K/mcL (140-400); Red Blood Count 4.53 M/mcL (3.82-4.97); Red Cell Distribution Width 19.4 % (11.5-14.5); Segmented Neutrophils % 60.1 %
[2017-09-01] MEDS: Diltiazem CD (24hr) 120 MG CAPSULE PO SCH (08:05)
[2017-09-01] MEDS: Morphine Oral CONC 5 MG/0.25 ML ORAL.SYG PO PRN ×2 (08:05→21:05)
[2017-09-01] MEDS: Nystatin SUSP 5 ML UD.LIQ PO SCH ×3 (08:05→21:04)
--- NOTE | 2017-09-01 11:29 | Palliative Progress Note ---
Date of Encounter: 09/01/17 Time of Encounter: 11:25 - Assessment and plan (1) Anxiety Current Visit: No Status: Acute Assessment and plan: Continue current Lorazepam. Received x2 last 24 hours. Monitor (2) Generalized pain Current Visit: Yes Status: Acute Assessment and plan: Continue Roxanol PRN. Received x3 last 24 hours. Monitor. She appears much more comfortable and appears to be tolerating well. (3) Constipation due to opioid therapy Current Visit: Yes Status: Acute Assessment and plan: She has been utilizing opioids for pain pretty consistently. Will begin on Senokot BID and monitor. Last BM 08/29. (4) Goals of care, counseling/discussion Current Visit: Yes Status: Acute Assessment and plan: [facility] has accepted patient and she will be going with [facility] hospice, HOWEVER, daughter has to come and enroll patient with both the facility and hospice. Daughter has been at [facility][1] so this has to be coordinated. [facility] hospice to call daughter and arrange a time to meet her where she can complete paperwork for both. Once this is completed, pt may be discharged. Will continue to follow. (5) Atrial fibrillation with rapid ventricular response Current Visit: Yes Status: Acute (6) HCAP (healthcare-associated pneumonia) Current Visit: Yes Status: Acute (7) Liver metastasis Current Visit: No Status: Acute (8) Anemia Current Visit: No Status: Chronic Qualifiers: Anemia type: iron deficiency Iron deficiency anemia type: unspecified iron deficiency Qualified Code(s): D50.9 - Iron deficiency anemia, unspecified - Time Spent With Patient Total time spent is greater than 50% in coordination of care (as documented) at patient's floor/unit and/or counseling patient: 25 - 35 minutes - Subjective Interval history: Patient resting comfortably. Still anxious but appears less than previous. Eating well. last BM 08/29. - Constitutional Vitals: Abnormal lab results Hgb 10.6 g/dL (11.5-15.4) L 09/01/17 04:37 MCV 80.4 fL (83.0-100.0) L 09/01/17 04:37 MCH 23.4 pg (28.0-33.3) L 09/01/17 04:37 MCHC 29.1 g/dL (31.6-35.5) L 09/01/17 04:37 RDW 19.4 % (11.5-14.5) H 09/01/17 04:37 Plt Count 130 K/mcL (140-400) L 09/01/17 04:37 Nucleated RBCs/100 WBC 0.5 /100 WBC (0) H 08/26/17 17:32 Hypochromasia Present (Not Present) A 08/28/17 03:53 Poikilocytosis 1+ (Not Present) A 08/25/17 17:44 Anisocytosis 1+ (Not Present) A 08/27/17 03:21 PT 14.4 Seconds (9.4-12.1) H 08/28/17 03:53 BUN 22 mg/dL (7-20) H 09/01/17 04:37 Est GFR ( Amer) 57 (> 60) L 09/01/17 04:37 Est GFR (Non-Af Amer) 47 (> 60) L 09/01/17 04:37 POC Glucose 125 (58-89) H 08/26/17 11:26 Troponin I 0.45 ng/mL (0-0.03) H* 08/27/17 10:17 C-Reactive Protein 9 mg/L (Less than 5) H 08/25/17 08:42 B-Natriuretic Peptide 1760 pg/mL (0-100) H 08/25/17 08:42 Serum Total Protein 5.2 g/dL (6.0-8.3) L 08/25/17 08:42 Albumin 2.6 g/dL (3.5-5.0) L 08/25/17 08:42 Albumin/Globulin Ratio 1.0 (1.1-2.2) L 08/25/17 08:42 - Respiratory Respiratory exam: Present: decreased breath sounds, CTAB - Cardiovascular Cardiovascular exam: Present: irregular rhythm - GI/Abdominal GI/Abdominal exam: Present: normal bowel sounds, soft - Extremities Exam Extremities exam: Present: normal capillary refill, normal inspection - Neurological Exam Neurological exam: Present: alert Additional comments: Oriented to name and place. - Skin Skin exam: Present: dry, pallor, warm Palliative Quality Palliative Quality: Screen for Code Status: Yes, Screen for Goals of Care: Yes, Screen for Pain: Yes, If Pain Regimen Started, Initiate Bowel Regimen: NA ( diarrhea), Screen for Nausea/Vomitting: Yes Code Status: 08/25/17 13:43 CODE [Resuscitation Status: Active] [RES] Routine Comment: Resuscitation Status: [id number] - Labs CBC & Chem 7: 09/01/17 04:37 09/01/17 04:37 Labs: Laboratory Results - last 24 hr 09/01/17 09/01/17 04:37 04:37 WBC 4.8 RBC 4.53 Hgb 10.6 L Hct 36.4 MCV 80.4 L MCH 23.4 L MCHC 29.1 L RDW 19.4 H Plt Count 130 L MPV 10.8 Immature Gran % 0.8 Seg Neutrophils % 60.1 Lymphocytes % 24.2 Monocytes % 11.0 Eosinophils % 3.5 Basophils % 0.4 Neutrophils # 2.9 Lymphocytes # 1.2 Monocytes # 0.5 Eosinophils # 0.2 Basophils # 0.0 Sodium 139 Potassium 4.1 Chloride 108 Carbon Dioxide 23 BUN 22 H Creatinine 1.10 Est GFR ( Amer) 57 L Est GFR (Non-Af Amer) 47 L BUN/Creatinine Ratio 20 Glucose 97 Calculated Osmolality 291 Calcium 9.1 - Impressions Impressions Chest X-Ray 09/01/17 08:23 IMPRESSION: Mild size left pleural effusion with compressive left basilar atelectasis. Small right pleural effusion. D/ / 09/01/2017 09:54:17 Cristo Cabral MD / Addie Segovia Interpreting Provider: Cristo Cabral MD - ABG Interpretation ABG results: PT/INR, D-dimer PT 14.4 Seconds (9.4-12.1) H 08/28/17 03:53 Consult Discharge Plan - Plan Referrals: Phyllis Parsons CNP [Primary Care Provider] - 09/02/17 1:00 pm Prescriptions: LORazepam [Ativan] 1 mg PO BID PRN #60 tablet PRN Reason: Anxiety Morphine Oral CONC [Roxanol] 0.5 ml PO Q3H PRN #30 ml PRN Reason: pain/dyspnea
[2017-09-01] MEDS: Furosemide 40 MG TABLET PO SCH (12:52)
[2017-09-01] MEDS: *HR* LORazepam 1 MG TABLET PO PRN (12:53)
[2017-09-01] MEDS ORDERED: Furosemide 20 MG/2 ML VIAL IVP ONE (13:36)
[2017-09-01] MEDS: Sennosides/Docusate Sodium TABLET PO SCH (21:04)
--- NOTE | 2017-09-01 23:46 | Internal Med Progress Note ---
Date of Encounter: 09/01/17 Time of Encounter: 14:57 - Assessment and plan (1) Heart failure with reduced ejection fraction Current Visit: Yes Status: Acute Assessment and plan: As seen on echocardiogram 08/25/17. Currently on BB metoprolol adding ACEi/ARB tomorrow morning if blood pressure and kidney function tolerates. Needs to finish judicious diuresis prior to discharge to avoid fluid overload. Most likely discharge tomorrow. Qualifiers: Heart failure chronicity: chronic Qualified Code(s): I50.22 - Chronic systolic (congestive) heart failure (2) Anxiety Current Visit: No Status: Acute Assessment and plan: Ativan TID prn which is home medication dose. (3) Atrial fibrillation with RVR Current Visit: Yes Status: Acute Assessment and plan: Rate controlled on metoprolol and cardizem. She is a poor candidate for anticoagulation therapy. (4) CKD (chronic kidney disease), stage III Current Visit: No Status: Chronic Assessment and plan: Cr improved to 1.14. Medications are to be renally dosed. She is fluid overloaded despite Lasix yesterday, will need to give Lasix 40 mg IV today and monitor urine output. (5) Coronary artery disease Current Visit: Yes Status: Chronic Qualifiers: Coronary Disease-Associated Artery/Lesion type: [place] artery [place] vs. transplanted heart: [place] heart Associated angina: angina presence unspecified Qualified Code(s): I25.10 - Atherosclerotic heart disease of [place] coronary artery without angina pectoris (6) Duodenitis with hemorrhage Current Visit: Yes Status: Resolved Assessment and plan: No new episodes of bleeding. Completed antibiotic course. Continue PPI. Anticoagulants and anti-platelet medications are discontinued. (7) HCAP (healthcare-associated pneumonia) Current Visit: Yes Status: Acute (8) Hypertension Current Visit: No Status: Acute Qualifiers: Hypertension type: essential hypertension Qualified Code(s): I10 - Essential (primary) hypertension (9) Liver metastasis Current Visit: No Status: Acute (10) NSTEMI (non-ST elevated myocardial infarction) Current Visit: Yes Status: Acute (11) Elevated INR Current Visit: Yes Status: Resolved (12) Goals of care, counseling/discussion Current Visit: Yes Status: Acute (13) Pedal edema Current Visit: Yes Status: Acute Assessment and plan: Due to IV hydration and hypoalbuminemia with underlying left ventricular systolic dysfunction. Received Lasix 08/30. Will give today and monitor I/O. Fluid restrict. Instructed patient to elevate legs. Compression stockings. Continue low sodium diet. She denies SOB, but will get a chest x-ray today to verify she is not having any pulmonary edema. (14) Sepsis Current Visit: Yes Status: Resolved Qualifiers: Sepsis type: sepsis due to unspecified organism Qualified Code(s): A41.9 - Sepsis, unspecified organism (15) Acute kidney injury superimposed on chronic kidney disease Current Visit: Yes Status: Resolved (16) Heart failure, left, with LVEF 31-40% Current Visit: Yes Status: Acute - Subjective Interval history: Anxiety still persistent with patient, on her regular Ativan home medications. Edema still present. She denies shortness of breath, chest pain, n/v, orthopnea. Generalized pain is not as bothersome as yesterday. - Constitutional Vitals: Temp Pulse Resp BP Pulse Ox 97.7 F 88 17 154/75 96 09/01/17 20:17 09/01/17 20:17 09/01/17 20:17 09/01/17 20:17 09/01/17 20:17 General appearance: Present: cooperative, A&O X 2, mild distress, answers questions appropriately Exam: CVS: RRR Lungs: course sounds at bases, no wheezing Ext: 2+ bipedal edema, improved from yesterdays exam. Internal Medicine: Result - Labs CBC & Chem 7: 09/01/17 04:37 09/01/17 04:37 Labs: Short CBC 09/01/17 Range/Units 04:37 WBC 4.8 (4.3-11.1) K/mcL Hgb 10.6 L (11.5-15.4) g/dL Hct 36.4 (35.3-44.9) % Plt Count 130 L (140-400) K/mcL Neutrophils # 2.9 (1.6-8.9) K/mcL BMP 09/01/17 04:37 Sodium 139 Potassium 4.1 Chloride 108 Carbon Dioxide 23 BUN 22 H Creatinine 1.10 Glucose 97 Calcium 9.1 - ABG Interpretation ABG results: PT/INR, D-dimer PT 14.4 Seconds (9.4-12.1) H 08/28/17 03:53 - Impressions Impressions Chest X-Ray 09/01/17 08:23 IMPRESSION: Mild size left pleural effusion with compressive left basilar atelectasis. Small right pleural effusion. D/ / 09/01/2017 09:54:17 Cristo Cabral MD / Addie Segovia Interpreting Provider: Cristo Cabral MD - VTE Documentation of Mechanical Device: Intermittent pneumatic compression device Consult Discharge Plan - Plan Referrals: Phyllis Parsons CNP [Primary Care Provider] - 09/02/17 1:00 pm Prescriptions: LORazepam [Ativan] 1 mg PO BID PRN #60 tablet PRN Reason: Anxiety Morphine Oral CONC [Roxanol] 0.5 ml PO Q3H PRN #30 ml PRN Reason: pain/dyspnea
[2017-09-02 05:57] LABS: Basophils % 0.8 %; Eosinophils # 0.2 K/mcL (0.0-0.6); Eosinophils % 3.4 %; Hematocrit 36.5 % (35.3-44.9); Hemoglobin 10.8 g/dL (11.5-15.4); Lymphocytes # 1.5 K/mcL (0.6-4.6); Lymphocytes % 29.2 %; Mean Corpuscular HGB Conc 29.6 g/dL (31.6-35.5); Mean Corpuscular Hemoglobin 23.6 pg (28.0-33.3); Mean Corpuscular Volume 79.9 fL (83.0-100.0); Mean Platelet Volume 10.9 fL (9.4-12.4); Monocytes # 0.6 K/mcL (0.0-1.3); Monocytes % 12.1 %; Neutrophils # 2.7 K/mcL (1.6-8.9); Platelet Count 119 K/mcL (140-400); Red Blood Count 4.57 M/mcL (3.82-4.97); Red Cell Distribution Width 19.5 % (11.5-14.5); Segmented Neutrophils % 53.5 %
[2017-09-02 06:05] LABS: Calcium 8.9 mg/dL (8.6-10.8)
[2017-09-02 06:18] LABS: Large Platelets Present (Not Present); Platelet Estimate Decreased (Normal)
[2017-09-02 06:19] LABS: Hypochromasia Present (Not Present); Microcytosis Present (Not Present); Reactive Lymphocytes Present (Not Present); Toxic Granulation Present (Not Present); Toxic Vacuolation Present (Not Present)
[2017-09-02] MEDS: Nystatin SUSP 5 ML UD.LIQ PO SCH ×2 (08:25→15:28)
[2017-09-02] MEDS: Furosemide 40 MG TABLET PO SCH (08:25)
[2017-09-02] MEDS: Diltiazem CD (24hr) 120 MG CAPSULE PO SCH (08:25)
[2017-09-02] MEDS: Sennosides/Docusate Sodium TABLET PO SCH (08:25)
[2017-09-02] MEDS: *HR* LORazepam 1 MG TABLET PO PRN ×2 (08:45→15:28)
--- NOTE | 2017-09-02 09:13 | Palliative Progress Note ---
Date of Encounter: 09/02/17 Time of Encounter: 09:00 - Assessment and plan (1) Anxiety Current Visit: No Status: Acute Assessment and plan: Continue Lorazepam PRN. She has not utilized last 24 hours (2) Generalized pain Current Visit: Yes Status: Acute Assessment and plan: Continue Roxanol PRN. Utilized x2 last 24 hours. Monitor (3) Constipation due to opioid therapy Current Visit: Yes Status: Acute Assessment and plan: Senokot began yesterday. + bm this am. (4) Goals of care, counseling/discussion Current Visit: Yes Status: Acute Assessment and plan: Patient's daughter should be available to coordinate discharge with ECF/Hospice today. Discharge at discretion of hospitalist. (5) Atrial fibrillation with rapid ventricular response Current Visit: Yes Status: Acute (6) HCAP (healthcare-associated pneumonia) Current Visit: Yes Status: Acute (7) Liver metastasis Current Visit: No Status: Acute (8) Anemia Current Visit: No Status: Chronic Qualifiers: Anemia type: iron deficiency Iron deficiency anemia type: unspecified iron deficiency Qualified Code(s): D50.9 - Iron deficiency anemia, unspecified - Time Spent With Patient Total time spent is greater than 50% in coordination of care (as documented) at patient's floor/unit and/or counseling patient: 25 - 35 minutes - Subjective Interval history: Patient resting comfortably, c/o slight upset stomach from medications this am. Ate 1/3 of breakfast. + BM this am. - Constitutional Vitals: Abnormal lab results Hgb 10.8 g/dL (11.5-15.4) L 09/02/17 05:43 MCV 79.9 fL (83.0-100.0) L 09/02/17 05:43 MCH 23.6 pg (28.0-33.3) L 09/02/17 05:43 MCHC 29.6 g/dL (31.6-35.5) L 09/02/17 05:43 RDW 19.5 % (11.5-14.5) H 09/02/17 05:43 Plt Count 119 K/mcL (140-400) L 09/02/17 05:43 Nucleated RBCs/100 WBC 0.5 /100 WBC (0) H 08/26/17 17:32 Reactive Lymphocytes Present (Not Present) A 09/02/17 05:43 Toxic Granulation Present (Not Present) A 09/02/17 05:43 Toxic Vacuolation Present (Not Present) A 09/02/17 05:43 Platelet Estimate Decreased (Normal) L 09/02/17 05:43 Large Platelets Present (Not Present) A 09/02/17 05:43 Hypochromasia Present (Not Present) A 09/02/17 05:43 Poikilocytosis 1+ (Not Present) A 08/25/17 17:44 Anisocytosis 1+ (Not Present) A 08/27/17 03:21 Microcytosis Present (Not Present) A 09/02/17 05:43 PT 14.4 Seconds (9.4-12.1) H 08/28/17 03:53 Est GFR ( Amer) 56 (> 60) L 09/02/17 05:43 Est GFR (Non-Af Amer) 46 (> 60) L 09/02/17 05:43 POC Glucose 125 (58-89) H 08/26/17 11:26 Troponin I 0.45 ng/mL (0-0.03) H* 08/27/17 10:17 C-Reactive Protein 9 mg/L (Less than 5) H 08/25/17 08:42 B-Natriuretic Peptide 1760 pg/mL (0-100) H 08/25/17 08:42 Serum Total Protein 5.2 g/dL (6.0-8.3) L 08/25/17 08:42 Albumin 2.6 g/dL (3.5-5.0) L 08/25/17 08:42 Albumin/Globulin Ratio 1.0 (1.1-2.2) L 08/25/17 08:42 General appearance: Present: no acute distress - Respiratory Respiratory exam: Present: decreased breath sounds, CTAB - Cardiovascular Cardiovascular exam: Present: irregular rhythm - GI/Abdominal GI/Abdominal exam: Present: normal bowel sounds, soft, tenderness - Extremities Exam Extremities exam: Present: normal capillary refill, normal inspection - Neurological Exam Neurological exam: Present: alert, strengths equal and symetr throughout Additional comments: Oriented to person and place, answering questions appropriately this am - Skin Skin exam: Present: dry, pallor, warm Palliative Quality Palliative Quality: Screen for Code Status: Yes, Screen for Goals of Care: Yes, Screen for Pain: Yes, If Pain Regimen Started, Initiate Bowel Regimen: NA ( diarrhea), Screen for Nausea/Vomitting: Yes Code Status: 08/25/17 13:43 CODE [Resuscitation Status: Active] [RES] Routine Comment: Resuscitation Status: [id number] - Labs CBC & Chem 7: 09/02/17 05:43 09/02/17 05:43 Labs: Laboratory Results - last 24 hr 09/02/17 09/02/17 05:43 05:43 WBC 5.0 RBC 4.57 Hgb 10.8 L Hct 36.5 MCV 79.9 L MCH 23.6 L MCHC 29.6 L RDW 19.5 H Plt Count 119 L MPV 10.9 Immature Gran % 1.0 Seg Neutrophils % 53.5 Lymphocytes % 29.2 Monocytes % 12.1 Eosinophils % 3.4 Basophils % 0.8 Neutrophils # 2.7 Lymphocytes # 1.5 Monocytes # 0.6 Eosinophils # 0.2 Basophils # 0.0 Reactive Lymphocytes Present A Toxic Granulation Present A Toxic Vacuolation Present A Platelet Estimate Decreased L Large Platelets Present A Hypochromasia Present A Microcytosis Present A Sodium 139 Potassium 4.0 Chloride 106 Carbon Dioxide 24 BUN 17 Creatinine 1.11 Est GFR ( Amer) 56 L Est GFR (Non-Af Amer) 46 L BUN/Creatinine Ratio 15 Glucose 93 Calculated Osmolality 289 Calcium 8.9 - Impressions Impressions Chest X-Ray 09/01/17 08:23 IMPRESSION: Mild size left pleural effusion with compressive left basilar atelectasis. Small right pleural effusion. D/ / 09/01/2017 09:54:17 Cristo Cabral MD / Addie Segovia Interpreting Provider: Cristo Cabral MD - ABG Interpretation ABG results: PT/INR, D-dimer PT 14.4 Seconds (9.4-12.1) H 08/28/17 03:53 Consult Discharge Plan - Plan Referrals: Phyllis Parsons CNP [Primary Care Provider] - 09/02/17 1:00 pm Prescriptions: LORazepam [Ativan] 1 mg PO BID PRN #60 tablet PRN Reason: Anxiety Morphine Oral CONC [Roxanol] 0.5 ml PO Q3H PRN #30 ml PRN Reason: pain/dyspnea
--- NOTE | 2017-09-02 10:38 | Discharge Summary ---
Date of Encounter: 09/02/17 Time of Encounter: 10:36 - Discharge Diagnosis (1) Duodenitis with hemorrhage Priority: Primary Status: Resolved (2) HCAP (healthcare-associated pneumonia) Priority: Secondary Status: Acute (3) Heart failure with reduced ejection fraction Priority: Secondary Status: Acute Qualifiers: Heart failure chronicity: chronic Qualified Code(s): I50.22 - Chronic systolic (congestive) heart failure (4) Anxiety Priority: Secondary Status: Acute (5) Atrial fibrillation with RVR Priority: Secondary Status: Acute (6) CKD (chronic kidney disease), stage III Priority: Secondary Status: Chronic (7) Coronary artery disease Priority: Secondary Status: Chronic Qualifiers: Coronary Disease-Associated Artery/Lesion type: [place] artery [place] vs. transplanted heart: [place] heart Associated angina: angina presence unspecified Qualified Code(s): I25.10 - Atherosclerotic heart disease of [place] coronary artery without angina pectoris (8) Hypertension Priority: Secondary Status: Acute Qualifiers: Hypertension type: essential hypertension Qualified Code(s): I10 - Essential (primary) hypertension (9) Liver metastasis Priority: Secondary Status: Acute (10) NSTEMI (non-ST elevated myocardial infarction) Priority: Secondary Status: Acute (11) Elevated INR Priority: Secondary Status: Resolved (12) Goals of care, counseling/discussion Priority: Secondary Status: Acute (13) Pedal edema Priority: Secondary Status: Acute (14) Sepsis Priority: Secondary Status: Resolved Qualifiers: Sepsis type: sepsis due to unspecified organism Qualified Code(s): A41.9 - Sepsis, unspecified organism (15) Acute kidney injury superimposed on chronic kidney disease Priority: Secondary Status: Resolved (16) Heart failure, left, with LVEF 31-40% Priority: Secondary Status: Acute - Discharge Medications Prescriptions: LORazepam [Ativan] 1 mg PO BID PRN #60 tablet PRN Reason: Anxiety Metoprolol [Lopressor] 25 mg PO BID #60 tablet Morphine Oral CONC [Roxanol] 0.5 ml PO Q3H PRN #30 ml PRN Reason: pain/dyspnea Omeprazole [PriLOSEC] 40 mg PO DAILY@0630 #[address] Watson/Docusate Sodium [Senna Plus] 1 each PO BID #60 tablet Home Medications: Acetaminophen [Tylenol] 500 mg PO TID PRN 05/19/17 [History] Cholecalciferol (D-3) [Vitamin D] 5,000 unit PO DAILY 05/19/17 [History] Levothyroxine [Synthroid] 100 mcg PO DAILY #30 05/20/17 [Rx] Oxycodone HCl [Oxaydo] 2.5 - 5 mg PO Q6H PRN #60 06/18/17 [Rx] Diltiazem CD (24hr) [Cardizem CD] 120 mg PO DAILY 08/02/17 [History] Furosemide [Lasix] 40 mg PO DAILY 08/02/17 [History] LORazepam [Ativan] 1 mg PO BID PRN #60 tablet 08/31/17 [Rx] Morphine Oral CONC [Roxanol] 0.5 ml PO Q3H PRN #30 ml 08/31/17 [Rx] Metoprolol [Lopressor] 25 mg PO BID #60 tablet 09/02/17 [Rx] Omeprazole [PriLOSEC] 40 mg PO DAILY@0630 #30 capsule. 09/02/17 [Rx] Sennosides/Docusate Sodium [Senna Plus] 1 each PO BID #60 tablet 09/02/17 [Rx] Allergies/Adverse Reactions: 3 Allergy/AdvReac Type Severity Reaction Status Date / Time tuberculin,PPD,multi-puncture Allergy Hypertensio Verified 04/22/17 13:20 n meperidine [From Demerol] AdvReac Vomiting Verified 04/22/17 13:20 IVP DYE Allergy Hives Uncoded 05/19/17 11:22 Date of admission: 08/25/17 09:51 Primary care physician: Phyllis Parsons CNP Consults: 08/25/17 08:22 Consult to Occupational Therapy [CONS] Routine Comment: Evaluate, develop and implement POC Reason for Consult: weakness Consult to Physical Therapy [CONS] Routine Comment: Evaluate, develop and implement POC Reason for Consult: wekaness 08/25/17 09:23 Consult to Gastroenterology [CONS] Routine Consulting Provider: Gastroenterology [facility] Reason for Consult: GI bleed Call Completed: No 08/25/17 13:30 Consult to Palliative Care [CONS] Routine Comment: Consulting Provider: [facility] [place] Reason for Consult: Goals of care Call Completed: Yes 08/26/17 17:33 Consult to Oncology [CONS] Routine Consulting Provider: [facility] Reason for Consult: Metastatic colon cancer Call Completed: Yes Discharging clinician: Austin Bunn - Patient Status Disposition: Hospice - Medical Facility Condition: Undetermined Functional capacity at discharge: wheelchair bound Overall status at discharge: patient is not back to baseline - Discharge Instructions Follow Up With: Phyllis Parsons CNP [Primary Care Provider] - 09/02/17 1:00 pm - Diet and Activity Activity: as per physical therapy Diet: low salt diet Hospital course: Ms. Da Silva is a 87 year old female transferred from [facility] with anemia, diarrhea, atrial fibrillation, and hypotension. She origiinally presented to [facility] with complaints of shortness of breath, lower extremity edema, and diarrhea of approx 5 watery stools/day. CT at outside facility showed She has history of colon cancer s/p colectomy, and was found to have liver metastasis that was followed by Dr. Dawson at [facility]. Other medical history includes atrial fibrillation, CHF, CAD, CVA, GI bleed, NE. She presented with Hgb of 6.6 (baseline of 8) and INR 4.7 and was hypotensive. She received 2 units of PRBCs, 4 units of FFP. ASA, plavix and eliquis was held. She was placed on protonix drip, and GI was consulted. SBleeding did resolve. Patient and family did not want to do aggressive measures and so EGD was not done. She was started on Zosyn as she was recently hospitalized within this past month. She had Afib with RVR but since she was hypotensive, she was rate controlled with 2 doses of IV digoxin. Metoprolol and Cardizem were temporarily held. She was admitted to ICU. She had NSTEMI type 2 without chest pain because of demand ischemia seen with elevated troponin, and EKG with ST segment depression. A CT of abdomen was done as there was suspicion of infectious process. Imaging showed inflammation in area of pancreas and duodenum. This was most likely duodenitis given that her lipase was normal. C diff was negative. Palliative was consulted for comfort measures and goals of care. She did require increase of Ativan because of her anxiety. Renal function and oxygenation improved. INR trended down and hemoglobin was stable. Antibiotics were de-escalated to FLagyl before therapy was completed. She did have an episode of increased bipedal pitting edema after IV fluid hydration. She required IV lasix which helped with this. Based on patient multiple co-morbidities, family members favored hospice for goals of care. She was discharged with hospice services. - Time Spent with Patient Total time spent providing and/or coordinating discharge services: - Constitutional Vitals: Temp Pulse Resp BP Pulse Ox 97.7 F 52 14 129/76 96 09/02/17 07:27 09/02/17 07:27 09/02/17 07:27 09/02/17 07:27 09/02/17 07:27 General appearance: Present: cooperative, A&O X 2, mild distress, answers questions appropriately Exam: Gen: Anxious appearing but more calm than yesterday. CVS: irreg irreg rhythm Lungs: CTAB, rales no longer present Abd; Soft, NT/ND Ext 2+ bipedal pitting edema, improved. - VTE Documentation of Mechanical Device: Intermittent pneumatic compression device
[2017-09-02 11:05] VITALS: BP 106/62
--- NOTE | 2017-09-02 11:19 | Physician Discharge Referral ---
ExtendedCare Referral Info Transfer To: ECF with Hospice Provider in Charge after Transfer: [employer] [employer] Institutional Level of Care: Skilled - Diagnosis (1) Duodenitis with hemorrhage Priority: Primary Status: Resolved (2) HCAP (healthcare-associated pneumonia) Priority: Secondary Status: Acute (3) Heart failure with reduced ejection fraction Priority: Secondary Status: Acute (4) Anxiety Priority: Secondary Status: Acute (5) Atrial fibrillation with RVR Priority: Secondary Status: Acute (6) CKD (chronic kidney disease), stage III Priority: Secondary Status: Chronic (7) Coronary artery disease Priority: Secondary Status: Chronic (8) Hypertension Priority: Secondary Status: Acute (9) Liver metastasis Priority: Secondary Status: Acute (10) NSTEMI (non-ST elevated myocardial infarction) Priority: Secondary Status: Acute (11) Elevated INR Priority: Secondary Status: Resolved (12) Goals of care, counseling/discussion Priority: Secondary Status: Acute (13) Pedal edema Priority: Secondary Status: Acute (14) Sepsis Priority: Secondary Status: Resolved (15) Acute kidney injury superimposed on chronic kidney disease Priority: Secondary Status: Resolved (16) Heart failure, left, with LVEF 31-40% Priority: Secondary Status: Acute Aware of Diagnosis: Patient, Family Aware of Prognosis: Patient, Family - Transfer Medications Prescriptions: LORazepam [Ativan] 1 mg PO BID PRN #60 tablet PRN Reason: Anxiety Metoprolol [Lopressor] 25 mg PO BID #60 tablet Morphine Oral CONC [Roxanol] 0.5 ml PO Q3H PRN #30 ml PRN Reason: pain/dyspnea Omeprazole [PriLOSEC] 40 mg PO DAILY@0630 #[address] Watson/Docusate Sodium [Senna Plus] 1 each PO BID #60 tablet Home Medications: Acetaminophen [Tylenol] 500 mg PO TID PRN 05/19/17 [History] Cholecalciferol (D-3) [Vitamin D] 5,000 unit PO DAILY 05/19/17 [History] Levothyroxine [Synthroid] 100 mcg PO DAILY #30 05/20/17 [Rx] Oxycodone HCl [Oxaydo] 2.5 - 5 mg PO Q6H PRN #60 06/18/17 [Rx] Diltiazem CD (24hr) [Cardizem CD] 120 mg PO DAILY 08/02/17 [History] Furosemide [Lasix] 40 mg PO DAILY 08/02/17 [History] LORazepam [Ativan] 1 mg PO BID PRN #60 tablet 08/31/17 [Rx] Morphine Oral CONC [Roxanol] 0.5 ml PO Q3H PRN #30 ml 08/31/17 [Rx] Metoprolol [Lopressor] 25 mg PO BID #60 tablet 09/02/17 [Rx] Omeprazole [PriLOSEC] 40 mg PO DAILY@0630 #30 capsule. 09/02/17 [Rx] Sennosides/Docusate Sodium [Senna Plus] 1 each PO BID #60 tablet 09/02/17 [Rx] Allergies/Adverse Reactions: 3 Allergy/AdvReac Type Severity Reaction Status Date / Time tuberculin,PPD,multi-puncture Allergy Hypertensio Verified 04/22/17 13:20 n meperidine [From Demerol] AdvReac Vomiting Verified 04/22/17 13:20 IVP DYE Allergy Hives Uncoded 05/19/17 11:22 - Respiratory Orders Smoking Cessation: Smoking cessation has been advised. For more information, call the [place] Tobacco Quit Line at 1-448-XADX-NOW. - Ancillary Orders May use pressure relief devices daily prn, May consult with Dentist, Security Officer Supervisor, Footwear Sales Leader PRN - Mobility Orders Chair - Rehabiliation Orders Rehab Potential: Fair Rehab Orders: Evaluation for Physical Therapy, Evaluation for Occupational Therapy - Treatments Skin tear care topically daily PRN per policy, May check for fecal impaction rectally daily PRN, Fleet enema rectally every other day PRN cleansing purposes - Diet Orders Cardiac CERTIFICATION: I certify that the transfer of the above named patient to an Extended Care Facility is necessary for the continuing treatment of the diagnosis listed. The above information is true and accurate reflection of patient's current condition. Confidential - Redisclosure prohibited without a patient's written consent.
[2017-09-02] MEDS: Morphine Oral CONC 5 MG/0.25 ML ORAL.SYG PO PRN (11:58)
== END 2017-09-02 15:50 | disposition hospice, inpatient (51) | DRG 871 ==
LOC: ICNU → SUATTDRO 09:51 → 2ANU 08-27 08:58 → 3ANU 08-27 09:18
PROVIDERS: ADMIT Internal Medicine; ATTEND Student in an Organized Health Care Education/Training Program